=== PATIENT | female | born 1965 | race Caucasian/White ===

== ENCOUNTER 2019-10-15 18:13 | Emergency (ER) | payer SELFPAY ==
[2019-10-15 18:17] VITALS: BP 147/82; PULSE 72; RESP 15; TEMP 36.6; O2SAT 97; BMI 36.3
--- NOTE | 2019-10-15 18:22 | ED_ITS ---
Entered by Ally Clemente, acting as scribe for Tony Hernandez MD HPI - Abdominal Pain General: Chief Complaint: Abdominal Pain Stated Complaint: abd pain Time Seen by Provider: 10/15/19 18:38 History of Present Illness: HPI narrative: 53 yo female presents with abd pain. Pt states that she started vomiting about 1 hour ago. pt states that she has had this pain since last nigth. Pt states that her ain radiates to her back. Associated Symptoms: Reports nausea and vomiting; Denies chills, diarrhea and fever(s) Review of Systems Const: Denies: fever, chills, body aches, change in appetite or change in weight Card: Denies: chest pain or palpitations Resp: Denies: shortness of breath GI: Reports: abdominal pain, nausea and vomiting; Denies: diarrhea : Denies: flank pain or difficulty urinating Musc: Reports: back pain Neuro: Denies: headache Psych: Denies: anxiety or depression PFSH ED PFSH: Statuses (acute, chronic, etc) shown below reflect problem list status as previously entered and may not be historically accurate Medical History Asthma (Acute) Diabetes (Acute) Hypertension (Acute) Pulmonary disease (Acute) Surgical History H/O tubal ligation (Acute) Social History Smoking and tobacco status: former smoker Physical Exam Const: COMMON NORMALS: no apparent distress and healthy appearing HENMT: COMMON NORMALS: normocephalic and external nose normal HEAD & SCALP: normocephalic NOSE: external nose normal and no nasal discharge (nasal dischage) Eye: COMMON NORMALS: PERRL PUPIL: Yes PERRL Neck/C-Spine: COMMON NORMALS: full ROM and no lymphadenopathy Chest: COMMONS NORMALS: inspection of chest normal Resp: COMMON NORMALS: normal respiratory effort and clear to auscultation bilaterally AUSCULTATION: clear to auscultation bilaterally Cardio: COMMON NORMALS: regular rate and regular rhythm RATE: regular rate RHYTHM: regular rhythm GI: COMMON NORMALS: soft to palpation PALPATION: Yes soft OTHER: diffuse tenderness Extremity: COMMON NORMALS: normal to inspection, full ROM and normal capillary refill Psych: COMMON NORMALS: mental status grossly normal and cooperative Skin: COMMON NORMALS: no rashes or lesions noted GENERAL SKIN EXAM: no rashes or lesions noted Course Vital Signs: Vital signs: Vital Signs Temperature 98.4 F 10/15/19 20:06 Pulse Rate 67 10/15/19 21:40 Respiratory Rate 16 10/15/19 21:40 Blood Pressure 110/72 10/15/19 21:40 Pulse Oximetry 98 10/15/19 21:40 MDM - Abdominal Pain MDM Narrative: Medical decision making narrative: Patient presents here with abdominal pain. Patient's lab work here is normal and CT abdomen is normal as well patient feels improved and exam at discharge is benign. Patient has no signs of acute surgical abdomen. Will place patient on Zofran and she is stable for discharge. Lab Data: Labs: Lab Results 10/15/19 10/15/19 10/15/19 Range/Units 18:44 18:44 19:25 WBC 12.3 H (4.0-10.0) 10^3/ uL RBC 5.32 H (4.1-5.3) 10^6/u L Hgb 14.9 (11.5-15.3) g/dL Hct 45.3 (37.0-47.0) % MCV 85.2 (81-99) fL MCH 28.0 (28.0-34.0) pg MCHC 32.9 (30.0-36.0) g/dL RDW 13.5 (12.1-15.1) % Plt Count 308 (130-400) 10^3/c mm MPV 10.6 H (7.4-10.4) fL Neut % (Auto) 83.9 % Lymph % (Auto) 12.0 % [place] % (Auto) 3.2 % Eos % (Auto) 0.4 % Baso % (Auto) 0.2 % Neut # (Auto) 10.3 H (1.8-7.7) 10^3/u L Lymph # (Auto) 1.5 (0.8-4.8) 10^3/u L [place] # (Auto) 0.4 (0.2-0.9) 10^3/u L Eos # (Auto) 0.1 (0.0-0.8) 10^3/u L Baso # (Auto) 0.0 (0.0-0.1) 10^3/u L Nucleated RBC % (a uto) 0 % Nucleated RBCs # 0.0 /100WBC Sodium 132 L (136-145) mmol/L Potassium 4.8 (3.5-5.1) mmol/L Chloride 93 L (98-107) mmol/L Carbon Dioxide 24 (22-29) mmol/L Anion Gap 19.8 H (5-19) BUN 22 H (6-20) mg/dL Creatinine 0.7 (0.5-0.9) mg/dL GFR Calculation 87.9 L (90-130) mL/min Glucose 211 H (74-109) mg/dL Calcium 11.2 H (8.6-10.0) mg/Dl Total Bilirubin 0.3 (0.15-1.2) mg/dL AST 47 H (0-32) U/L ALT 61 H (0-33) U/L Alkaline Phosphata se 53 (35-105) IU/L Total Protein 8.5 (6.6-8.7) g/dL Albumin 4.8 (3.5-5.2) g/dL Globulin 3.7 (1.3-4.6) g/dL Lipase 22 (13-60) U/L Urine Color Yellow (Yellow) Urine Appearance Clear (CLEAR) Urine pH 5 (5-7) Ur Specific Gravit y 1.010 (1.005-1.030) Urine Protein Neg (Negative) Urine Glucose (UA) 4+ H (Normal) Urine Ketones 1+ H (Negative) Urine Occult Blood Neg (Negative) Urine Nitrate Negative (Negative) Urine Bilirubin Neg (NEGATIVE) Urine Urobilinogen Norm (Negative) mg/dL Ur Leukocyte Tiesha ase Negative (Negative) Imaging Data ^: CT Abd/Pel: Radiologist's impression: Ordering Provider/Ordering MD: Tony Hernandez MD Date of Service: 10/15/19 Procedure(s): CT abdomen pelvis w con* [id number] Accession Number(s): [id number] Report Number: [id number] PROCEDURE INFORMATION: Exam: CT Abdomen And Pelvis With Contrast Exam date and time: 10/15/2019 6:51 PM Age: 53 years old Clinical indication: Abdominal pain; Acute; Prior surgery; Surgery date: 6+ months; Surgery type: Tubal; Additional info: Abd pain TECHNIQUE: Imaging protocol: Computed tomography of the abdomen and pelvis with intravenous contrast. Total DLP: 1140.88 mGy-cm Radiation optimization: All CT scans at this facility use at least one of these dose optimization techniques: automated exposure control; mA and/or kV adjustment per patient size (includes targeted exams where dose is matched to clinical indication); or iterative reconstruction. Contrast material: OMNI 300; Contrast volume: 95 ml; Contrast route: IV; COMPARISON: CT abdomen pelvis w con* [id number] 01/23/2017 5:03 PM FINDINGS: Liver: Findings consistent with fatty infiltration of the liver are identified. Gallbladder and bile ducts: Normal. No calcified stones. No ductal dilation. Pancreas: Normal. No ductal dilation. Spleen: Normal. No splenomegaly. Adrenals: Normal. No mass. Kidneys and ureters: Normal. No hydronephrosis. Stomach and bowel: There are air-fluid levels in mildly dilated small bowel with a maximal diameter of 3.2 cm. No volvulus, intussusception or significant hernia. No transition point is identified. The distal small bowel and colon are not dilated. No bowel wall thickening. Appendix: The appendix is visualized and appears normal. Intraperitoneal space: Unremarkable. No free air. No significant fluid collection. Vasculature: Unremarkable. No abdominal aortic aneurysm. Lymph nodes: Unremarkable. No enlarged lymph nodes. Bladder: Unremarkable as visualized. Reproductive: Unremarkable as visualized. Bones/joints: Unremarkable. No acute fracture. Soft tissues: Unremarkable. CT/CT abdomen pelvis w con* [id number] IMPRESSION: There are air-fluid levels in mildly dilated small bowel suggestive of an ileus. No transition point is identified. Discharge Plan Discharge Patient Disposition: Home, Self-Care Clinical Impression: Abdominal pain Qualifiers: Abdominal location: generalized Qualified Code(s): R10.84 - Generalized abdominal pain Condition: Stable Prescriptions: New Zofran 4 mg tablet 4 mg PO QID PRN (Reason: nausea and vomiting) Qty: 14 RF: 0 Discharge Orders: Discharge Order (Routine); Ordered 10/15/19 Ordered By: Tony Hernandez Referrals: Naomi Ken DO [Family Provider] - Discharge Diet: Advance as tolerated Discharge Activity: Resume usual activity Patient Instructions: Abdominal Pain (ED) Discharge Date/Time: 10/15/19 21:41 Coding Level of Care Code ED Diesel Service Technician for Chg Fwd Exam Problem Focused The documentation recorded by the Bryn mann Kialy, accurately reflects the s mikee I personally performed and the decisions made by David ewdard Korby, MD
--- NOTE | 2019-10-15 18:38 | CTR_ITS ---
PROCEDURE INFORMATION: Exam: CT Abdomen And Pelvis With Contrast Exam date and time: 10/15/2019 6:51 PM Age: 53 years old Clinical indication: Abdominal pain; Acute; Prior surgery; Surgery date: 6+ months; Surgery type: Tubal; Additional info: Abd pain TECHNIQUE: Imaging protocol: Computed tomography of the abdomen and pelvis with intravenous contrast. Total DLP: 1140.88 mGy-cm Radiation optimization: All CT scans at this facility use at least one of these dose optimization techniques: automated exposure control; mA and/or kV adjustment per patient size (includes targeted exams where dose is matched to clinical indication); or iterative reconstruction. Contrast material: OMNI 300; Contrast volume: 95 ml; Contrast route: IV; COMPARISON: CT abdomen pelvis w con* [id number] 01/23/2017 5:03 PM FINDINGS: Liver: Findings consistent with fatty infiltration of the liver are identified. Gallbladder and bile ducts: Normal. No calcified stones. No ductal dilation. Pancreas: Normal. No ductal dilation. Spleen: Normal. No splenomegaly. Adrenals: Normal. No mass. Kidneys and ureters: Normal. No hydronephrosis. Stomach and bowel: There are air-fluid levels in mildly dilated small bowel with a maximal diameter of 3.2 cm. No volvulus, intussusception or significant hernia. No transition point is identified. The distal small bowel and colon are not dilated. No bowel wall thickening. Appendix: The appendix is visualized and appears normal. Intraperitoneal space: Unremarkable. No free air. No significant fluid collection. Vasculature: Unremarkable. No abdominal aortic aneurysm. Lymph nodes: Unremarkable. No enlarged lymph nodes. Bladder: Unremarkable as visualized. Reproductive: Unremarkable as visualized. Bones/joints: Unremarkable. No acute fracture. Soft tissues: Unremarkable. CT/CT abdomen pelvis w con* [id number] IMPRESSION: There are air-fluid levels in mildly dilated small bowel suggestive of an ileus. No transition point is identified. Radiation Dose CTDIVOL = (mGy): DLP = 1140.88 (mGy-cm)
[2019-10-15] MEDS: ondansetron 2 mg/ML SDV 2 mL 4 MG IVP (18:48)
[2019-10-15 18:49] VITALS: RESP 24
[2019-10-15] MEDS: morphine 4 mg/mL SDV 1 mL IVP (18:49)
[2019-10-15 18:50] LABS: Basophils % 0.2 %; Eosinophils # 0.1 10^3/uL (0.0-0.8); Eosinophils % 0.4 %; Hematocrit 45.3 % (37.0-47.0); Hemoglobin 14.9 g/dL (11.5-15.3); Lymphocytes # 1.5 10^3/uL (0.8-4.8); Mean Corpuscular HGB Conc 32.9 g/dL (30.0-36.0); Mean Corpuscular Volume 85.2 fL (81-99); Mean Platelet Volume 10.6 fL (7.4-10.4); Monocytes # 0.4 10^3/uL (0.2-0.9); Monocytes % 3.2 %; Neutrophils # 10.3 10^3/uL (1.8-7.7); Neutrophils % 83.9 %; Nucleated Red Blood Cells % 0 %; Platelet Count 308 10^3/cmm (130-400); Red Blood Count 5.32 10^6/uL (4.1-5.3); Red Cell Distribution Width 13.5 % (12.1-15.1); White Blood Count 12.3 10^3/uL (4.0-10.0)
[2019-10-15 19:05] LABS: Alanine Aminotransferase 61 U/L (0-33); Albumin Level 4.8 g/dL (3.5-5.2); Alkaline Phosphatase 53 IU/L (35-105); Anion Gap 19.8 (5-19); Aspartate Amino Transferase 47 U/L (0-32); Blood Urea Nitrogen 22 mg/dL (6-20); Calcium 11.2 mg/Dl (8.6-10.0); Carbon Dioxide 24 mmol/L (22-29); Chloride 93 mmol/L (98-107); Globulin 3.7 g/dL (1.3-4.6); Glomerular Filtration Rate 87.9 mL/min (90-130); Glucose 211 mg/dL (74-109); Lipase 22 U/L (13-60); Potassium 4.8 mmol/L (3.5-5.1); Sodium 132 mmol/L (136-145); Total Bilirubin 0.3 mg/dL (0.15-1.2); Total Protein 8.5 g/dL (6.6-8.7)
[2019-10-15] MEDS: iohexol 300 mg/mL 100 mL Btl IV (19:11)
[2019-10-15 19:32] LABS: Add Urine Microscopic? NO
[2019-10-15 20:06] VITALS: BP 104/60; PULSE 67; RESP 16; TEMP 36.9; O2SAT 87
[2019-10-15 20:09] VITALS: O2SAT 92
--- NOTE | 2019-10-15 20:09 | PC.NURSE ---
Rounded on patient and noticed that her oxygen saturation was a little low. Spoke to nurse and was told to put her on 2L of nasal cannula, patient is on oxygen and oxygen is coming back up.
[2019-10-15 20:23] LABS: Bilirubin Urine Neg (NEGATIVE); Blood Urine Neg (Negative); Glucose Urine UA 4+ (Normal); Ketones Urine 1+ (Negative); Leukocyte Esterase Urine Negative (Negative); Nitrate Urine Negative (Negative); Protein Urine Neg (Negative); Urine Appearance Clear (CLEAR); Urine Color Yellow (Yellow); Urobilinogen Urine Norm (Negative); pH Urine 5 (5-7)
[2019-10-15 21:40] VITALS: BP 110/72; PULSE 67; RESP 16; O2SAT 98
== END 2019-10-15 21:41 | disposition home or self-care (01) ==
PROVIDERS: Emergency Provider Emergency Medicine; Family Provider Family Medicine
DX: R10.84 Generalized abdominal pain (principal); E11.9 Type 2 diabetes mellitus without complications; J45.909 Unspecified asthma, uncomplicated; I10 Essential (primary) hypertension; Z87.891 Personal history of nicotine dependence
CPT/HCPCS: 74177; 80053; 81003; 83690; 85025; 96374; 99282; J2270; J2405; Q9967

== ENCOUNTER 2020-04-26 13:31 | Outpatient (CLI) | payer OTHER, SELFPAY ==
--- NOTE | 2020-04-26 13:38 | MM_ITS ---
WS: [id number] BILATERAL DIGITAL SCREENING MAMMOGRAPHY WITH CAD CLINICAL INFORMATION: SCREENING HISTORY: Screening mammogram. No current complaints. COMPARISON: TECHNIQUE: Bilateral CC and MLO views. FINDINGS: The breasts are composed of heterogeneous fibroglandular density tissue, which can limit the detectio n of small underlying mass lesions. No suspicious mass, asymmetry, calcifications, or architectural d istortion. No evidence of malignancy. A few punctate and lucent centered calcifications. MM/[place] [id number] IMPRESSION: BI-RADS: 2-Benign FOLLOW UP: 1 Year Follow-up Recommend return to annual screening mammography.
== END 2020-04-26 13:32 | disposition home or self-care (01) ==
LOC: RADSHAW 13:35
PROVIDERS: PCP Nurse Practitioner; Visit Provider Nurse Practitioner
DX: Z12.31 Encounter for screening mammogram for malignant neoplasm of breast (principal)
CPT/HCPCS: 77067

== ENCOUNTER 2021-11-16 11:54 | Observation (INO) | payer MEDICAID, SELFPAY ==
[2021-11-16] VITALS (11 sets, daily range): BP systolic 109–179; BP diastolic 69–89; PULSE 67–83; RESP 15–18; TEMP 36.3–36.9; O2SAT 92–97; BMI 33.3
--- NOTE | 2021-11-16 12:53 | CT_ITS ---
WS: [id number] CT HEAD TECHNIQUE: Noncontrast CT of the head obtained from the skullbase to the vertex. CLINICAL INFORMATION: headache, gait instability, double vision COMPARISON: MRI 2012 DLP: 747.[address] scans at [facility] use at least one of these dose optimization techniques: automated e xposure control; mA and/or kV adjustment per patient size (includes targeted exams where dose is matc hed to clinical indication); or iterative reconstruction. FINDINGS: No evidence of intracranial hemorrhage or mass effect. Ventricular system and basal cisterns are garza nt. Mild small vessel changes with mild parenchymal volume loss. No extra-axial fluid collections. No evidence of mass or mass effect. Normal bernstein-white differentiation. Paranasal sinuses and mastoid air cells are well aerated. .Normal visualized soft tissues. CT/CT head wo con* [id number] IMPRESSION: 1. No evidence of intracranial hemorrhage or mass effect. 2. Mild small vessel changes. Mild parenchymal volume loss. 3. No acute intracranial findings.
--- NOTE | 2021-11-16 12:53 | CT_ITS ---
WS: [id number] CTA HEAD AND NECK TECHNIQUE: Contrast enhanced CTA of the head and neck with coronal and sagittal reformatted images an d maximum intensity projection (MIP) images. NASCET criteria utilized. CLINICAL INFORMATION: gait instability and vision changes, neck pain COMPARISON: None. DLP: 2190.[address] scans at [facility] use at least one of these dose optimization techniques: automated e xposure control; mA and/or kV adjustment per patient size (includes targeted exams where dose is matc hed to clinical indication); or iterative reconstruction. FINDINGS: RIGHT: RIGHT common carotid artery is patent. Mild atheromatous plaque RIGHT carotid bulb extending t o the ICA. No significant RIGHT ICA stenosis. ICA is patent to the skull base. LEFT: LEFT common carotid artery is patent. Moderate atheromatous plaque LEFT carotid bulb extending into the ICA. Less than 50% LEFT ICA stenosis. LEFT ICA is patent to the skull base. Retropharyngeal course of the LEFT cervical ICA. INTRACRANIAL CTA: LEFT dominant vertebral artery. Both vertebral arteries are patent to the skull base. Smaller but pat ent RIGHT vertebral artery. Basilar artery is patent. Normal vascularity to the GLASS PRODUCTION MACHINE OPERATOR territory bilater ally. Both ICAs are patent at the skull base. Mild cavernous carotid calcification. Normal vascularity to t he MELY and MCA territories bilaterally. No evidence of flow-limiting stenosis or aneurysm. A few small nodules in the thyroid. A few small calcified nodules. Lung apices are well aerated. Paranasal sinuses and mastoid air cells are well aerated well aerated. Normal parapharyngeal fat. Normal posterior nasopharynx. Moderate spondylitic changes cervical spine. Disc osteophyte complexes at C5-C6 and C6-C7 with mild central canal stenosis. CT/CT angio headneck* [id number] IMPRESSION: 1. No significant ICA stenosis bilaterally. 2. LEFT dominant vertebral artery. Both vertebral arteries are patent. 3. Normal intracranial CTA. No flow-limiting stenosis. 4. No other acute findings.
--- NOTE | 2021-11-16 12:53 | XR_ITS ---
WS: [id number] Portable AP upright chest, 11/16/2021 Clinical Data: weakness Comparison: Portable chest, 11/27/2014. Findings: No nodules, masses or effusions are seen. The heart is normal. The pulmonary vascularity is not increased. No pneumonia or pneumothorax is seen. XR/XR chest 1V portable [id number] Impression: Negative chest.
--- NOTE | 2021-11-16 12:54 | ECG_ITS ---
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 Measurements Intervals Mertens Rate: 67 P: 61 TN: 200 QRS: -7 QRSD: 109 T: 63 QT: 391 QTc: 415 Interpretive Statements SINUS RHYTHM LOW QRS VOLTAGE IN PRECORDIAL LEADS [QRS DEFLECTION < 1.0 mV IN CHEST LEADS] POSSIBLE ANTERIOR MYOCARDIAL INFARCTION , OF INDETERMINATE AGE [30 ms Q WAVE IN V3/V4, OR R < 0.2 mV IN V4] Compared to ECG 11/27/2014 22:53:44 No significant changes Electronically Signed On 11-16-2021 20:47:52 PIG MACHINE OPERATOR HELPER by Lakhwinder Delgadillo M.D. [id number]
--- NOTE | 2021-11-16 13:01 | W.ED.DIZZY ---
HPI - Dizziness General: Chief Complaint: Dizziness Stated Complaint: double vision, dizzy Time Seen by Provider: 11/16/21 12:44 [facility] PFSH: Medical History (Updated 10/23/19 @ 00:00 by ) Asthma Diabetes Hypertension Pulmonary disease Surgical History H/O tubal ligation Social History Smoking and tobacco status: former smoker Course Vital Signs: Vital signs: Vital Signs Temperature 97.4 F L 11/16/21 12:01 Pulse Rate 74 11/16/21 12:01 Respiratory Rate 18 11/16/21 12:01 Blood Pressure 179/84 11/16/21 12:01 Pulse Oximetry 97 11/16/21 12:01 Discharge Plan Discharge Condition: Stable Prescriptions: No Action Zofran 4 mg tablet 4 mg PO QID PRN (Reason: nausea and vomiting) Qty: 14 0RF Referrals: Vivek Reyez FNP [Primary Care Provider] - Coding Level of Care Code ED Knitted Garment Finisher for Aldair Benito
--- NOTE | 2021-11-16 13:02 | W.ED.GENADLT ---
HPI - General Adult General: Chief complaint: Dizziness Stated complaint: double vision, dizzy Time Seen by Provider: 11/16/21 12:44 History of Present Illness: Patient is a 55-year-old female with history diabetes, hypertension who presents emergency room with 2 days of blurriness of vision, double vision, and gait instability and generalized weakness. Patient tells me that yesterday morning she woke up around 8 AM when she suddenly experienced difficulty walking. At baseline, patient has no problem with walking. Vision, patient has noticed diplopia. Denies any vertigo sensation, chest pain, shortness breath, palpitation, lightheadedness, nausea/vomiting, diarrhea, or melena/hematochezia, urinary complaints. Patient tells me that she has been having 1 month of frontal headache. No focal weakness in the arms or legs. Patient denies any recent slurring of speech, facial droop, dysarthria, or sensory changes. Onset:2 days ago Duration:2 days Location:home Severity:moderate Associated symptoms: Reports headache(s); Deny chest pain, dyspnea, nausea, rash, palpitations or vomiting Review of Systems Const: Denies: fever(s) or chills Eyes: Reports: blurry vision and other (diplopia); Denies: change in vision ENMT: Denies: mouth pain Card: Denies: chest pain or palpitations Resp: Denies: dyspnea or non-productive cough GI: Denies: abdominal pain, nausea, vomiting or diarrhea : Denies: dysuria Musc: Denies: extremity pain Skin/Breast: Denies: rash or new lesions Neuro: Reports: headache(s) and other (+gait difficulty); Denies: weakness in extremities Psych: Reports: other (Normal mood) Param/Lymph: Denies: easy bruising PFSH ED PFSH: Medical History (Updated 11/16/21 @ 17:37 by Jayant Soler MD) Arthritis of neck Asthma Bleeding hemorrhoids Diabetes Hypertension Pulmonary disease Surgical History H/O tubal ligation Family History (Updated 11/16/21 @ 17:28 by Jayant Soler MD) Sister Cancer Social History Smoking and tobacco status: former smoker Physical Exam Const: COMMON NORMALS: alert HENMT: COMMON NORMALS: atraumatic HEAD & SCALP: atraumatic MOUTH: moist mucous membranes not abnormal Eye: COMMON NORMALS: EOMs intact bilaterally and conjunctivae normal CONJUNCTIVA: Yes conjunctivae normal Neck/C-Spine: COMMON NORMALS: full ROM and supple Resp: COMMON NORMALS: normal respiratory effort and clear to auscultation bilaterally AUSCULTATION: clear to auscultation bilaterally Cardio: COMMON NORMALS: regular rate RATE: regular rate GI: COMMON NORMALS: Soft to palpation and non-tender PALPATION: Yes Soft to palpation Extremity: COMMON NORMALS: full ROM Neuro: SENSORIUM/ORIENTATION: Yes alert MOTOR EXAM: No Abnormal motor strength present and Other motor observations present (no focal motor deficits) OTHER: Mental status? Awake, alert, and oriented to self, year, month, location, and situation.? Following simple axial and appendicular commands.? Has appropriate fund of knowledge, comprehension, and insight.? Able to recall and understands pertinent aspects of medical history and current treatment status.? ? Language? Speech is fluent without word-finding difficulties.? Intact naming, expression, foam dispenser, and repetition.? ? Cranial nerves? 2,3,4,6: PERRL, EOMI with no nystagmus. 5: Intact sensation to light touch, symmetric? 7: Smile symmetrical, no facial droop.? 8: Hearing grossly intact.? 9,10: Normal palate movement.? 11: Normal strength in trapezius bilaterally 12: Tongue protrudes midline.? ? Motor examination? Normal bulk & tone. Strength as follows (R/L): Delts (5/5), Biceps (5/5), Triceps (5/5), Wrist ext (5/5), hip flexors (5/5), plantarflexors (5/5), dorsiflexors (5/5). Sensation? Light Touch: Grossly intact and equal in upper and lower extremities bilaterally? Romberg: Negative.? Distal joint position sense intact ? Coordination? Ydjsra-zf-nwdm-finger movements intact without dysmetria or past-pointing.? Rapid fingertaps: preserved amplitude without decriment.? No tremor, myoclonus or truncal ataxia.? ? Gait/stance? Steady, +mildly wide-base gait with appropriate arm swing and turning.? Tandem gait without hesitation or loss of balance. Psych: COMMON NORMALS: speech normal SPEECH: Yes normal speech MOOD & AFFECT: Yes euthymic mood Course Vital Signs: Vital signs: Vital Signs Temperature 97.5 F L 11/17/21 17:08 Pulse Rate 86 11/17/21 17:08 Respiratory Rate 16 11/17/21 17:08 Blood Pressure 146/85 11/17/21 17:08 Pulse Oximetry 95 11/17/21 17:08 MDM - General Adult Medical Decision Making 85-year-old female with a history of hypertension, diabetes who presents emergency room with complaint generalized weakness, gait difficulty, and diplopia x 2 days. Patient on exam has binocular diplopia. Neuro exam is intact. Work-up with CBC, BMP, troponin x2, EKG x2, CT brain, CT head Ct head is negative for any acute finding. CTA head/neck is negative for any large vessel occlusion or dissection. Given new onset of gait instability and diplopia, I performed shared decision making with patient who agrees for inpatient admission for MRI and echo to evaluate for subacute cerebellar stroke and other patholoiges. Disposition: admission Lab Data : 11/16/21 13:40 11/16/21 13:40 Radiology Impressions Chest X-Ray 11/16/21 12:53 Impression: Negative chest. Head CT 11/16/21 12:53 IMPRESSION: 1. No evidence of intracranial hemorrhage or mass effect. 2. Mild small vessel changes. Mild parenchymal volume loss. 3. No acute intracranial findings. Head/Neck CTA 11/16/21 12:53 IMPRESSION: 1. No significant ICA stenosis bilaterally. 2. LEFT dominant vertebral artery. Both vertebral arteries are patent. 3. Normal intracranial CTA. No flow-limiting stenosis. 4. No other acute findings. Head MRI 11/17/21 10:00 IMPRESSION: 1. No acute infarct or hemorrhage. 2. Mild increased amount of subcortical white matter lesions greater on the RIGHT since the prior study from 2012. These changes can be seen with migraine headache, diabetes, smoking history and hypertension. 3. No intracranial mass. 4. No orbital abnormality or compression upon the optic chiasm. Head/Brain Mag Res Venography 11/17/21 10:00 IMPRESSION: 1. No dural venous thrombosis. 2. Small caliber RIGHT transverse sinus is a normal variant. Laboratory Results WBC 8.4 10^3/uL (4.0-10.0) 11/16/21 13:40 RBC 5.47 10^6/uL (4.1-5.3) H 11/16/21 13:40 Hgb 14.9 g/dL (11.5-15.3) 11/16/21 13:40 Hct 46.1 % (37.0-47.0) 11/16/21 13:40 MCV 84.3 fl (81-99) 11/16/21 13:40 MCH 27.2 pg (28.0-34.0) L 11/16/21 13:40 MCHC 32.3 g/dL (30.0-36.0) 11/16/21 13:40 RDW 13.2 % (12.1-15.1) 11/16/21 13:40 Plt Count 325 10^3/cmm (130-400) 11/16/21 13:40 MPV 10.7 fL (7.4-10.4) H 11/16/21 13:40 Neut % (Auto) 49.6 % 11/16/21 13:40 Lymph % (Auto) 41.5 % 11/16/21 13:40 [place] % (Auto) 6.3 % 11/16/21 13:40 Eos % (Auto) 1.8 % 11/16/21 13:40 Baso % (Auto) 0.6 % 11/16/21 13:40 Neut # (Auto) 4.16 10^3/uL (1.8-7.7) 11/16/21 13:40 Lymph # (Auto) 3.5 10^3/uL (0.8-4.8) 11/16/21 13:40 [place] # (Auto) 0.5 10^3/uL (0.2-0.9) 11/16/21 13:40 Eos # (Auto) 0.2 10^3/uL (0.0-0.8) 11/16/21 13:40 Baso # (Auto) 0.1 10^3/uL (0.0-0.1) 11/16/21 13:40 Nucleated RBC % (auto) 0 % 11/16/21 13:40 Nucleated RBCs # 0.0 /100WBC 11/16/21 13:40 Sodium 132 mmol/L (136-145) L 11/16/21 13:40 Potassium 4.6 mmol/L (3.5-5.1) 11/16/21 13:40 Chloride 96 mmol/L (98-107) L 11/16/21 13:40 Carbon Dioxide 25 mmol/L (22-29) 11/16/21 13:40 Anion Gap 15.6 (5-19) 11/16/21 13:40 BUN 13 mg/dL (6-20) 11/16/21 13:40 Creatinine 0.5 mg/dL (0.5-0.9) 11/16/21 13:40 GFR Calculation 128.6 mL/min (90-130) 11/16/21 13:40 Glucose 95 mg/dL (65-115) 11/16/21 13:40 Estimat Average Glucose 180 11/16/21 13:40 Hemoglobin A1c 7.9 % (4.0-6.0) H 11/16/21 13:40 Calculated Osmolality 274 mOsm/kg (285-295) L 11/16/21 13:40 Calcium 10.2 mg/dL (8.5-10.5) 11/16/21 13:40 Creatine Kinase 77 U/L (26-192) 11/16/21 13:40 Troponin T Baseline 6 ng/L (0-10) 11/16/21 13:40 Imaging Data Other Imaging: Radiologist's impression: [address] [place] [address] CT Scan Report Signed Patient: Juan Estrada Unit #: [id number] : 1965 Age/Sex: 55 / F ADM Date: 11/16/21 Loc: ER Room/Bed: Attending Dr: Ordering Provider/Ordering MD: Sherri Guardado MD Date of Service: 11/16/21 Procedure(s): CT angio headneck* [id number] Accession Number(s): [id number] Report Number: [id number] WS: [id number] CTA HEAD AND NECK TECHNIQUE: Contrast enhanced CTA of the head and neck with coronal and sagittal reformatted images and maximum intensity projection (MIP) images. NASCET criteria utilized. CLINICAL INFORMATION: gait instability and vision changes, neck pain COMPARISON: None. DLP: 2190.[address] [facility] use at least one of these dose optimization techniques: automated exposure control; mA and/or kV adjustment per patient size (includes targeted exams where dose is matched to clinical indication); or iterative reconstruction. FINDINGS: RIGHT: RIGHT common carotid artery is patent. Mild atheromatous plaque RIGHT carotid bulb extending to the ICA. No significant RIGHT ICA stenosis. ICA is patent to the skull base. LEFT: LEFT common carotid artery is patent. Moderate atheromatous plaque LEFT carotid bulb extending into the ICA. Less than 50% LEFT ICA stenosis. LEFT ICA is patent to the skull base. Retropharyngeal course of the LEFT cervical ICA. INTRACRANIAL CTA: LEFT dominant vertebral artery. Both vertebral arteries are patent to the skull base. Smaller but patent RIGHT vertebral artery. Basilar artery is patent. Normal vascularity to the PRINTING ASSISTANT territory bilaterally. Both ICAs are patent at the skull base. Mild cavernous carotid calcification. Normal vascularity to the MELY and MCA territories bilaterally. No evidence of flow-limiting stenosis or aneurysm. A few small nodules in the thyroid. A few small calcified nodules. Lung apices are well aerated. Paranasal sinuses and mastoid air cells are well aerated well aerated. Normal parapharyngeal fat. Normal posterior nasopharynx. Moderate spondylitic changes cervical spine. Disc osteophyte complexes at C5-C6 and C6-C7 with mild central canal stenosis. CT/CT angio headneck* [id number] IMPRESSION: ? 1.? No significant ICA stenosis bilaterally. 2.? LEFT dominant vertebral artery. Both vertebral arteries are patent. 3.? Normal intracranial CTA. No flow-limiting stenosis. 4.? No other acute findings. ? Dictated By: Kory Grande MD Signed By: Kory Grande MD Signed Date/Time: 11/16/21 1351 DD/ [address] [address] [address] Scan Report Signed Patient: Juan Estrada Unit #: [id number] : 1965 Age/Sex: 55 / F ADM Date: 11/16/21 Loc: ER Room/Bed: Attending Dr: Ordering Provider/Ordering MD: Sherri Guardado MD Date of Service: 11/16/21 Procedure(s): CT head wo con* [id number] Accession Number(s): [id number] Report Number: [id number] WS: [id number] CT HEAD TECHNIQUE: Noncontrast CT of the head obtained from the skullbase to the vertex. CLINICAL INFORMATION: headache, gait instability, double vision COMPARISON: MRI 2012 DLP: 747.[address] scans at [facility] use at least one of these dose optimization techniques: automated exposure control; mA and/or kV adjustment per patient size (includes targeted exams where dose is matched to clinical indication); or iterative reconstruction. FINDINGS: No evidence of intracranial hemorrhage or mass effect. Ventricular system and basal cisterns are patent. Mild small vessel changes with mild parenchymal volume loss. No extra-axial fluid collections. No evidence of mass or mass effect. Normal bernstein-white differentiation. Paranasal sinuses and mastoid air cells are well aerated. .Normal visualized soft tissues. CT/CT head wo con* [id number] IMPRESSION: ? 1.? No evidence of intracranial hemorrhage or mass effect. 2.? Mild small vessel changes. Mild parenchymal volume loss. 3.? No acute intracranial findings. ? Dictated By: Kory Grande MD Signed By: Kory Grande MD Signed Date/Time: 11/16/21 1342 DD/ 1336 Discharge Plan Discharge Patient Disposition: Admitted As Inpatient Admit Provider: Jayant Soler Clinical Impression: Headache, Binocular vision disorder with diplopia, Abnormal gait Condition: Stable Discharge Diet: Cardiac and Diabetic Discharge Activity: Increase activity as tolerated Coding Level of Care Code ED Single Fold Machine Operator for Chg Fwd Exam Comprehensive
[2021-11-16 13:50] LABS: Basophils # 0.1 10^3/uL (0.0-0.1); Basophils % 0.6 %; Eosinophils # 0.2 10^3/uL (0.0-0.8); Eosinophils % 1.8 %; Hematocrit 46.1 % (37.0-47.0); Hemoglobin 14.9 g/dL (11.5-15.3); Lymphocytes # 3.5 10^3/uL (0.8-4.8); Lymphocytes % 41.5 %; Mean Corpuscular HGB Conc 32.3 g/dL (30.0-36.0); Mean Corpuscular Hemoglobin 27.2 pg (28.0-34.0); Mean Corpuscular Volume 84.3 fl (81-99); Mean Platelet Volume 10.7 fL (7.4-10.4); Monocytes # 0.5 10^3/uL (0.2-0.9); Monocytes % 6.3 %; Neutrophils # 4.16 10^3/uL (1.8-7.7); Neutrophils % 49.6 %; Nucleated Red Blood Cells % 0 %; Platelet Count 325 10^3/cmm (130-400); Red Blood Count 5.47 10^6/uL (4.1-5.3); Red Cell Distribution Width 13.2 % (12.1-15.1); White Blood Count 8.4 10^3/uL (4.0-10.0)
[2021-11-16 14:03] LABS: Anion Gap 15.6 (5-19); Blood Urea Nitrogen 13 mg/dL (6-20); Calcium 10.2 mg/dL (8.5-10.5); Carbon Dioxide 25 mmol/L (22-29); Chloride 96 mmol/L (98-107); Creatinine Clr Calc Pharmacy 151.9729; Glomerular Filtration Rate 128.6 mL/min (90-130); Glucose 95 mg/dL (65-115); Osmolality Calculated 274 mOsm/kg (285-295); Potassium 4.6 mmol/L (3.5-5.1); Sodium 132 mmol/L (136-145)
[2021-11-16 14:04] LABS: Troponin(5th) Baseline 6 ng/L (0-10)
[2021-11-16 14:47] LABS: Creatine Phosphokinase 77 U/L (26-192)
--- NOTE | 2021-11-16 14:54 | ECG_ITS ---
[facility] Test Date: 2021-11-16 Pat Name: Juan Estrada Department: Room: 251 Gender: Female Project Manager Retail: : 1965 Requested By: Sherri Guardado Order Number: [id number] Betty MD: Lakhwinder Delgadillo M.D. Measurements Intervals [place] Rate: 70 P: 63 [place]: 199 QRS: -6 QRSD: 120 T: 64 QT: 380 QTc: 410 Interpretive Statements SINUS RHYTHM POSSIBLE ANTERIOR MYOCARDIAL INFARCTION , OF INDETERMINATE AGE [30 ms Q WAVE IN V3/V4, OR R < 0.2 mV IN V4] Compared to ECG 11/16/2021 14:40:39 No significant changes Electronically Signed On 11-16-2021 20:52:40 ENTRY LEVEL BUSINESS ANALYST by Lakhwinder Delgadillo M.D. [id number]
--- NOTE | 2021-11-16 17:26 | P.HP_ITS ---
Providers/Chief Complaint Admitting Physician: Jayant Soler Primary Care Provider: KAMALJIT Prieto Chief Complaint: double vision, dizzy History of Present Illness 55-year-old lady with history of neck arthritis, DM2, HTN, HLD, asthma came to emergency department due to experiencing since yesterday morning double vision, difficulties with ambulation, also reports headache of about 1 month duration. Denies history of migraine headaches in the past. Denies past history of CVA. Reports also neck pain, although does state that she has chronic arthritis pain in her neck for which she takes meloxicam daily, and recently has been worse. Does report some photophobia as well. During interview reports that in the last hour she has also been experiencing loss of sensation numbness and tpvg-phn-yewcyzh in both right upper and lower extremity which she did not have before. She denies any fevers or chills. Denies any rashes. Denies any trouble speaking or swallowing. Denies that the symptoms get worse through the day. She denies any other recent illness. Denies any changes in her medications. Review of Systems Const: Reports: other (weak); Denies: fever(s), chills, body aches or malaise Eyes: Reports: change in vision; Denies: eye redness ENMT: Denies: throat pain, oral sores or ear or mastoid pain Card: Denies: chest pain, edema, pre-syncope or dyspnea on exertion Resp: Denies: dyspnea, productive cough, change in phlegm color or hemoptysis GI: Denies: abdominal pain, nausea, vomiting, diarrhea, constipation, hematochezia or melena : Denies: flank pain, urinary frequency or hematuria Musc: Denies: back pain, joint swelling or joint redness Skin/Breast: Denies: rash, sores or new lesions Neuro: Reports: headache(s), numbness in extremities, difficulty walking and other; Denies: weakness in extremities, dizziness, confusion or seizure-like activity Endo: Denies: polyuria or polydipsia Param/Lymph: Denies: easy bleeding or purpura All/Imm: Denies: urticaria, throat swelling or tongue swelling Medications/Allergies Home Medications Medication Instructions Recorded Confirmed Last Taken Type atenolol 50 mg tablet See Rx Instructions .ROUTE .COMPLEX 11/16/21 11/16/21 Unknown History atorvastatin 40 mg tablet 40 mg PO DAILY 11/16/21 11/16/21 Unknown History ferrous sulfate 325 mg (65 mg 325 mg PO DAILY 11/16/21 11/16/21 Unknown History iron) tablet (Iron (ferrous sulfate)) glyburide 2.5 mg tablet 2.5 mg PO DAILY 11/16/21 11/16/21 Unknown History lisinopril 30 mg tablet 30 mg PO DAILY 11/16/21 11/16/21 Unknown History meloxicam 15 mg tablet 15 mg PO DAILY 11/16/21 11/16/21 Unknown History metformin 500 mg tablet 500 mg PO BID 11/16/21 11/16/21 Unknown History oxybutynin chloride 10 mg 10 mg PO DAILY 11/16/21 11/16/21 Unknown History tablet,extended release 24 hr semaglutide 1 mg/dose (2 mg/1.5 1 mg SUBCUT Q7D 11/16/21 11/16/21 Unknown History mL) subcutaneous pen injector (Ozempic) Allergies Allergy/AdvReac Type Severity Reaction Status Date / Time No Known Allergies Allergy Verified 11/16/21 14:04 PFSH Acute PFSH: Medical History (Updated 11/16/21 @ 17:37 by Jayant Soler MD) Arthritis of neck Asthma Bleeding hemorrhoids Diabetes Hypertension Pulmonary disease Surgical History H/O tubal ligation Family History (Updated 11/16/21 @ 17:28 by Jayant Soler MD) Sister Cancer Social History Smoking and tobacco status: former smoker Vitals/I&O/Wt Last Vital Signs Temp 98.4 F 11/16/21 16:07 Pulse 83 11/16/21 16:07 Resp 16 11/16/21 16:07 BP 159/81 11/16/21 16:07 Pulse Ox 97 11/16/21 16:07 Weight last 48 hrs Weight 74.843 kg Physical Exam Const: COMMON NORMALS: no acute distress and patient oriented x3 NUTRITIONAL APPEARANCE: overweight HENMT: COMMON NORMALS: oropharynx normal Neck/C-Spine: COMMON NORMALS: no JVD Resp: COMMON NORMALS: normal respiratory effort and clear to auscultation bilaterally AUSCULTATION: clear to auscultation bilaterally Cardio: COMMON NORMALS: no JVD, regular rhythm, S1 normal heart sound present, S2 normal heart sound present and No murmurs present (Cardio) RHYTHM: regular rhythm HEART SOUNDS: S1 normal heart sound present and S2 normal heart sound present GI: COMMON NORMALS: Normal to inspection, nondistended, normoactive bowel sounds present, Soft to palpation and non-tender PALPATION: Yes Soft to palpation Extremity: COMMON NORMALS: no joint enlargement and no pedal edema Neuro: COMMON NORMALS: patient oriented x3 and moves all extremities CRANIAL NERVES: Yes CN normal except as noted COORDINATION/BALANCE: other (Mild dysmetria on R) SPEECH: speech normal SENSORY EXAM: Yes extremities (Reports diminished sensation on R upper and lower, not face) and Normal double simultaneous stimulation for sensation MOTOR EXAM: Pronator motor function not present OTHER: Tracking, although reports feeling mildly dizzy at both extremes. Visual barnard appear narrowed bilaterally. Skin: COMMON NORMALS: no rashes or lesions noted GENERAL SKIN EXAM: no rashes or lesions noted Data : 11/16/21 13:40 11/16/21 13:40 A&P Assessment and plan (1) Binocular vision disorder with diplopia: Diplopia, although states it has been intermittent since yesterday morning. Denies that he gets worse through the day. Denies persistent symptoms. No recent trauma. Additionally mild dysmetria on right upper extremity. In the last hour reports also loss of sensation/paresthesia on the right upper and lower extremity. Reports a headache going on for close to a month. Denies history of migraine. Certainly could be related to hemiplegic migraine, migraine with aura, although discussed with her possible CVA, although symptoms do not have a clear focal distribution. Discussed with her we will additionally assessed MRI and MRV of the brain. Start aspirin, statin. Would benefit from dual antiplatelet therapy with possible CVA with low NIH score. Continue optimization of cardiovascular risk factors. Additional assessment with TTE, monitor on telemetry. Additionally discussed with her possibility of NSAID induced meningitis, at this time we will discontinue meloxicam. With low likelihood of bacterial meningitis with current presentation. PT, OT assessment. Status: Acute (2) Abnormal gait: As above. Status: Acute (3) Headache: Reports mild photophobia. Headache. Does have chronic neck problems with arthritis. Discussed with her possible NSAID induced mild meningitis. Hold NSAID. At this time low likelihood of bacterial meningitis. We will provide symptomatic control at this time. Reassess. Additional assessment as above. Status: Acute (4) Diabetes: Hold oral hypoglycemics for now. Mild insulin sliding scale. Consistent carbohydrate diet. Status: Acute (5) Arthritis of neck: Hold meloxicam. Status: Acute Plan HTN: Hold antihypertensives for now. HLD: Continue statin. Attestations Medical Necessity Statement*: Please see in observation for additional assessment and management of progressive neurologic deficits. Coding Level of Care Code Acute Bridge Carpenter for Aldair Benito Diagnoses Binocular vision disorder with diplopia H53.2 Abnormal gait R26.9 Headache R51.9 Diabetes E11.9 Arthritis of neck M47.812
[2021-11-16] MEDS: magnesium sulfate premix 2 GM/50 ML PIGGYBACK IV (17:46)
[2021-11-16] MEDS: metoclopramide 5 mg/mL SDV 2 mL IVP (17:46)
--- NOTE | 2021-11-16 18:01 | USCV_ITS ---
Juan Estrada Age: 55 Gender: F : 1965 Exam Date: 11/16/2021 20:14 Ordering Phys: Jayant Soler MD Technologist: LEO Exam Location: [facility] – [place] Indication: Possible CVA BP: / HR: 69 Rhythm: Sinus Technical Quality: Adequate MEASUREMENTS (Male / Female) Normal Values 2D ECHO LV Diastolic Diameter PLAX 2.5 cm 4.2 - 5.9 / 3.9 - 5.3 cm LV Systolic Diameter PLAX 1.6 cm IVS Diastolic Thickness 1.5 cm 0.6 - 1.0 / 0.6 - 0.9 cm IVS Systolic Thickness 1.8 cm LVPW Diastolic Thickness 1.3 cm 0.6 - 1.0 / 0.6 - 0.9 cm LVPW Systolic Thickness 1.7 cm LVOT Diameter 1.7 cm LV Ejection Fraction 2D Teich 69.7 % LV Ejection Fraction MOD 2C 43.0 % LV Ejection Fraction 2C AL 44.2 % LA Diameter 3.6 cm LA Width 2.9 cm LA Height 4.9 cm RA Width 3.3 cm RA Height 4.1 cm Aorta at Sinotubular Diameter 1.9 cm M-MODE Aortic Annulus Diameter 2.3 cm LA Ao Ratio MM 1.6 MV E Point Septal Separation 0.5 cm DOPPLER AV Peak Velocity 144.0 cm/s LVOT Peak Velocity 95.0 cm/s AV Area Cont Eq vti 1.7 cm squared AV Area Cont Eq pk 1.5 cm squared MV Peak Velocity 78.0 cm/s MV Area PHT 3.7 cm squared Mitral E to A Ratio 0.9 MV E' Velocity 38.5 cm/s Mitral E to MV E' Ratio 8.1 Mitral E to LV E' Lateral Ratio 6.9 Mitral E to LV E' Septal Ratio 9.7 TR Peak Velocity 155.8 cm/s TR Peak Gradient 9.7 mmHg TR Mean Velocity 181.8 cm/s TR Mean Gradient 14.6 mmHg TR Velocity Time Integral 70.5 cm TV Peak E Velocity 77.0 cm/s Right Atrial Pressure 3.0 mmHg Pulmonary Artery Systolic Pressu 12.7 mmHg PV Peak Velocity 108.0 cm/s RV Acceleration Time 0.1 s RV Ejection Time 0.5 s RV AcT/ET 0.2 FINDINGS Left Ventricle Normal left ventricular size, systolic function with no diagnostic regional wall motion abnormalities. Left ventricular ejection fraction is estimated at 60-65 %. Normal diastolic function. Right Ventricle Normal right ventricular size and systolic function. Right ventricular systolic pressure 12.7 mmHg. Right Atrium Normal right atrial size. Left Atrium Upper normal left atrial size. Mitral Valve Structurally normal mitral valve. No mitral valve stenosis. No mitral valve regurgitation. Aortic Valve Structurally normal trileaflet aortic valve. No aortic valve stenosis. No aortic valve regurgitation. Tricuspid Valve Structurally normal tricuspid valve. No tricuspid valve stenosis. Trace tricuspid valve regurgitation. Pulmonic Valve Structurally normal pulmonic valve. No pulmonary valve stenosis. Trace pulmonary valve regurgitation. Pericardium No pericardial effusion. Aorta Normal size aortic root and proximal ascending aorta. CONCLUSIONS 1. This is a technically difficult study. 2. Normal left ventricular size, systolic function with no diagnostic regional wall motion abnormalities. Left ventricular ejection fraction is estimated at 60-65 %. Normal diastolic function. 3. Normal right ventricular size and systolic function. 4. No cardioembolic source of stroke based on the study. GABY is recommended if clinically indicated. Lila Franks MD (Electronically Signed) Final Date: 17 November 2021 16:25 S
[2021-11-16 18:31] LABS: Chol HDL Ratio 5.56 mg/dL (0.0-4.40); Cholesterol 178 mg/dL (0-200); HDL Cholesterol 32 mg/dL (60-100); LDL Cholesterol Calculated 83 mg/dL (50-129); Triglycerides 316 mg/dL (0-150); VLDL Cholestrol Calculation 63 mg/dL (0-30)
[2021-11-16] MEDS: enoxaparin 40 mg/0.4 mL Syringe SUBCUT (18:49)
[2021-11-16] MEDS: aspirin 325 mg Tablet PO (20:01)
[2021-11-16 21:40] LABS: Estmated Average Glucose 180; Hemoglobin A1C 7.9 % (4.0-6.0)
[2021-11-17] VITALS (8 sets, daily range): BP systolic 116–146; BP diastolic 75–85; PULSE 68–86; RESP 16–18; TEMP 36.4–36.6; O2SAT 95–96
[2021-11-17] MEDS: ferrous sulfate EC 325 mg Tablet PO (08:19)
[2021-11-17] MEDS: clopidogrel 75 mg Tablet PO (08:19)
[2021-11-17] MEDS: aspirin 325 mg Tablet PO (08:19)
[2021-11-17] MEDS: atorvastatin 40 mg Tablet PO (08:19)
[2021-11-17] MEDS: oxybutynin chloride XL 5 MG TABLET 10 MG PO (08:21)
--- NOTE | 2021-11-17 10:00 | MR_ITS ---
WS: [id number] MR VENOGRAPHY HEAD 3-D noncontrast imaging performed through the cerebral veins. All imaging is reviewed. HISTORY: headache, diplopia, difficult ambulation COMPARISON: Prior CT head and angiogram 11/16/2021. Good demonstration of the dural venous sinuses and cerebral veins. There are no filling defects to whitten ggest acute or chronic thrombus. Small caliber RIGHT transverse sinus. This is confirmed on the CT an giogram that was performed on 11/16/2021. There are no filling defects along the superior sagittal sin us or along the straight sinus. LEFT transverse sinus is normal caliber. Small caliber RIGHT sigmoid sinus. The LEFT is normally patent. MR/[place] [id number] IMPRESSION: 1. No dural venous thrombosis. 2. Small caliber RIGHT transverse sinus is a normal variant.
--- NOTE | 2021-11-17 10:00 | MR_ITS ---
WS: [id number] MRI BRAIN WITH AND WITHOUT CONTRAST HISTORY: gait disturbance, diplopia COMPARISON: MRI brain 07/27/2013. CT head 11/16/2021. TECHNIQUE: Multiplanar imaging performed through the brain with MultiHance 17 ml's IV. No acute infarcts are seen. Ordoñez-white matter differentiation is well preserved. Subcortical white ma tter lesions described on the prior study from 2012 has mildly progressed. Slightly greater distribut ion of white matter lesions in the RIGHT temporoparietal lobe. Slightly more than expected for a kayla ent of this age. No cerebellar lesions. No signal abnormality within the christian. No hemorrhage. No susceptibility artifacts or prior lacunar infarcts. Ventricles and extra-axial spaces are normal. Clivus and pituitary gland are normal. Visualized posterior fossa and brainstem are also normal. Postcontrast images are negative for masses or vascular malformations. Dural venous sinuses are normal. Paranasal sinuses: Well aerated with no significant disease. Mastoid air cells: Normal. Calvarium and scalp: Normal. MR/MR head wo/w con [id number] IMPRESSION: 1. No acute infarct or hemorrhage. 2. Mild increased amount of subcortical white matter lesions greater on the RI GHT since the prior study from 2012. These changes can be seen with migraine he adache, diabetes, smoking history and hypertension. 3. No intracranial mass. 4. No orbital abnormality or compression upon the optic chiasm.
[2021-11-17] MEDS: gadobenate dimeglumine 20 mL vial IV (11:23)
--- NOTE | 2021-11-17 14:17 | PC.PT ---
Per discussion with OT after evaluation, patient has returned to baseline and is safely independent with transfers and ambulation greater than 150 foot distances with no balance deficits. Discussed same with Dr.Ha Villalobos, who felt PT do not need to see patient.
--- NOTE | 2021-11-17 16:36 | P.DS_ITS ---
Discharge Providers Date of Admission: 11/16/21 14:21 Date of Discharge: November 17, 2021 Attending Provider at Admission: Jayant Soler Attending Provider at Discharge: Jayant Soler Primary Care Provider: KAMALJIT Prieto Diagnoses at Discharge Discharge Diagnosis (1) Binocular vision disorder with diplopia: Status: Acute (2) Abnormal gait: Status: Acute (3) Headache: Status: Acute (4) Diabetes: Status: Acute (5) Arthritis of neck: Status: Acute Reason for Visit Reason for Visit: double vision, dizzy Hospital Course Hospital Course Pleasant 56-year-old lady with history of neck arthritis, DM, HTN, HLD, was placed in observation hospital after presenting with about a month duration of headache, and in the morning prior to admission developing also intermittent episodes of diplopia, gait disturbance, difficulty walking leading to the left, and later also while in ER developed paresthesia of right upper and lower extremity. Denies fever or chills. Did have some mild photophobia. CT of the head without evidence of intracranial hemorrhage or mass-effect. Mild small vessel changes, parenchymal volume loss. No acute intracranial findings. She presented outside the window for TPA. CT angiogram head and neck, without significant ICA stenosis bilaterally, left dominant vertebral artery both vertebral arteries patent, normal intracranial CTA. No flow-limiting stenosis. No other acute findings. Given some evolving nature to her neurologic symptoms and headache assessed also by MRI and MRV, with finding of no acute infarct or hemorrhage, mild increase in amount of subcortical white matter lesions greater on right since prior study from 2013, these changes could be seen with migraine headache, diabetes, smoking history and hypertension, all of which she has. No intracranial mass. No orbital abnormality or compression upon the optic chiasm. MRV without dural venous thrombosis, small caliber right transverse sinus is a normal variant. As discussed with her due to possibility of aseptic meningitis secondary to NSAIDs, meloxicam was discontinued. She was monitored on telemetry. Echocardiogram showed normal ejection fraction, normal right ventricular size and systolic function. Her A1c is noted 7.9. Total cholesterol 178, LDL 83, triglycerides 316. She was initially started on aspirin, Plavix, however, without noted CVA, Plavix is stopped. She is continued on statin. Aspirin is continued possibility of TIA, although as discussed with her appears this may have been secondary to a either aseptic meningitis secondary to meloxicam which appears to have resolved currently with discontinuation of the medication, versus TIA. Low-dose aspirin due to this is for now continued. She is asked to continue to optimize risk factors of cardiovascular disease. She is instructed in case of recurrence of similar symptoms to [facility] as the symptoms may be indistinguishable from stroke. Findings on diagnostic studies discussed with her. Her symptoms are today completely resolved. She has no headache, she has no further difficulty with ambulation, no diplopia. She did well with therapy and is asking to return home. She is instructed to discontinue meloxicam on discharge. Physical Exam Const: COMMON NORMALS: no acute distress and patient oriented x3 HENMT: COMMON NORMALS: oropharynx normal Neck/C-Spine: COMMON NORMALS: no JVD; negative for no meningeal signs Resp: COMMON NORMALS: normal respiratory effort and clear to auscultation bilaterally AUSCULTATION: clear to auscultation bilaterally Cardio: COMMON NORMALS: no JVD, regular rhythm, S1 normal heart sound present, S2 normal heart sound present and No murmurs present (Cardio) RHYTHM: regular rhythm HEART SOUNDS: S1 normal heart sound present and S2 normal heart sound present GI: COMMON NORMALS: Normal to inspection, nondistended, normoactive bowel sounds present, Soft to palpation and non-tender PALPATION: Yes Soft to palpation Extremity: COMMON NORMALS: no joint enlargement and no pedal edema Neuro: COMMON NORMALS: patient oriented x3 and moves all extremities MENINGEAL SIGNS: No no meningeal signs COORDINATION/BALANCE: [id number] test normal SENSORY EXAM: Yes extremities and Normal double simultaneous stimulation for sensation MOTOR EXAM: Pronator motor function not present COORDINATION: [id number] test normal OTHER: Tracking well. Visual barnard full to confrontation. Skin: COMMON NORMALS: no rashes or lesions noted GENERAL SKIN EXAM: no rashes or lesions noted Discharge Data Studies Completed and Pending Completed Studies During Hospitalization Category Date Time Status CT head wo con* [id number] Urgent Cat Scan 11/16/21 12:53 Completed CTA head neck [CT angio headneck* [id number]] Urgent Cat Scan 11/16/21 12:53 Completed XR chest 1V portable [id number] Urgent Exams 11/16/21 12:53 Completed MR head wo/w con [id number] Routine MRI 11/17/21 10:00 [place] [id number] Routine MRI 11/17/21 10:00 Completed CV. echo complete* [id number] Routine Ultrasound 11/16/21 18:01 Completed Radiology Impressions Chest X-Ray 11/16/21 12:53 Impression: Negative chest. Head CT 11/16/21 12:53 IMPRESSION: 1. No evidence of intracranial hemorrhage or mass effect. 2. Mild small vessel changes. Mild parenchymal volume loss. 3. No acute intracranial findings. Head/Neck CTA 11/16/21 12:53 IMPRESSION: 1. No significant ICA stenosis bilaterally. 2. LEFT dominant vertebral artery. Both vertebral arteries are patent. 3. Normal intracranial CTA. No flow-limiting stenosis. 4. No other acute findings. Head MRI 11/17/21 10:00 IMPRESSION: 1. No acute infarct or hemorrhage. 2. Mild increased amount of subcortical white matter lesions greater on the RIGHT since the prior study from 2012. These changes can be seen with migraine headache, diabetes, smoking history and hypertension. 3. No intracranial mass. 4. No orbital abnormality or compression upon the optic chiasm. Head/Brain Mag Res Venography 11/17/21 10:00 IMPRESSION: 1. No dural venous thrombosis. 2. Small caliber RIGHT transverse sinus is a normal variant. Laboratory Results WBC 8.4 10^3/uL (4.0-10.0) 11/16/21 13:40 RBC 5.47 10^6/uL (4.1-5.3) H 11/16/21 13:40 Hgb 14.9 g/dL (11.5-15.3) 11/16/21 13:40 Hct 46.1 % (37.0-47.0) 11/16/21 13:40 MCV 84.3 fl (81-99) 11/16/21 13:40 MCH 27.2 pg (28.0-34.0) L 11/16/21 13:40 MCHC 32.3 g/dL (30.0-36.0) 11/16/21 13:40 RDW 13.2 % (12.1-15.1) 11/16/21 13:40 Plt Count 325 10^3/cmm (130-400) 11/16/21 13:40 MPV 10.7 fL (7.4-10.4) H 11/16/21 13:40 Neut % (Auto) 49.6 % 11/16/21 13:40 Lymph % (Auto) 41.5 % 11/16/21 13:40 [place] % (Auto) 6.3 % 11/16/21 13:40 Eos % (Auto) 1.8 % 11/16/21 13:40 Baso % (Auto) 0.6 % 11/16/21 13:40 Neut # (Auto) 4.16 10^3/uL (1.8-7.7) 11/16/21 13:40 Lymph # (Auto) 3.5 10^3/uL (0.8-4.8) 11/16/21 13:40 [place] # (Auto) 0.5 10^3/uL (0.2-0.9) 11/16/21 13:40 Eos # (Auto) 0.2 10^3/uL (0.0-0.8) 11/16/21 13:40 Baso # (Auto) 0.1 10^3/uL (0.0-0.1) 11/16/21 13:40 Nucleated RBC % (auto) 0 % 11/16/21 13:40 Nucleated RBCs # 0.0 /100WBC 11/16/21 13:40 Sodium 132 mmol/L (136-145) L 11/16/21 13:40 Potassium 4.6 mmol/L (3.5-5.1) 11/16/21 13:40 Chloride 96 mmol/L (98-107) L 11/16/21 13:40 Carbon Dioxide 25 mmol/L (22-29) 11/16/21 13:40 Anion Gap 15.6 (5-19) 11/16/21 13:40 BUN 13 mg/dL (6-20) 11/16/21 13:40 Creatinine 0.5 mg/dL (0.5-0.9) 11/16/21 13:40 GFR Calculation 128.6 mL/min (90-130) 11/16/21 13:40 Glucose 95 mg/dL (65-115) 11/16/21 13:40 Estimat Average Glucose 180 11/16/21 13:40 Hemoglobin A1c 7.9 % (4.0-6.0) H 11/16/21 13:40 Calculated Osmolality 274 mOsm/kg (285-295) L 11/16/21 13:40 Calcium 10.2 mg/dL (8.5-10.5) 11/16/21 13:40 Creatine Kinase 77 U/L (26-192) 11/16/21 13:40 Troponin T Baseline 6 ng/L (0-10) 11/16/21 13:40 Troponin T 120 Minute 6.30 ng/L (0-10) 11/16/21 15:50 Delta Troponin T 0.30 ABS# (0-10) 11/16/21 15:50 Triglycerides 316 mg/dL (0-150) H 11/16/21 15:50 Cholesterol 178 mg/dL (0-200) 11/16/21 15:50 LDL Cholesterol, Calc 83 mg/dL (50-129) 11/16/21 15:50 Total VLDL Cholesterol 63 mg/dL (0-30) H 11/16/21 15:50 HDL Cholesterol 32 mg/dL (60-100) L 11/16/21 15:50 Cholesterol/HDL Ratio 5.56 mg/dL (0.0-4.40) H 11/16/21 15:50 Vitals Last Vital Signs Temp 97.5 F L 11/17/21 15:41 Pulse 86 11/17/21 15:41 Resp 16 11/17/21 15:41 BP 146/85 11/17/21 15:41 Pulse Ox 95 11/17/21 15:41 Discharge Plan Discharge Patient Disposition: Home Condition: Stable Prescriptions: New aspirin 81 mg tablet,delayed release (DR/EC) 81 mg PO DAILY Qty: 90 0RF Continued atorvastatin 40 mg Tablet 40 mg PO DAILY 0RF metformin 500 mg Tablet 500 mg PO BID 0RF oxybutynin chloride 10 mg Tablet Extended Release 24hr 10 mg PO DAILY 0RF glyburide 2.5 mg Tablet 2.5 mg PO DAILY 0RF Iron (ferrous sulfate) 325 mg (65 mg iron) Tablet 325 mg PO DAILY 0RF lisinopril 30 mg Tablet 30 mg PO DAILY 0RF atenolol 50 mg Tablet See Rx Instructions .ROUTE .COMPLEX 0RF Rx Instructions: 50 MG PO IN THE MORNING AND 25 MG PO IN EVENING Ozempic 1 mg/dose (2 mg/1.5 mL) Pen Injector 1 mg SUBCUT Q7D 0RF Rx Instructions: ON SATURDAY Discontinued meloxicam 15 mg Tablet 15 mg PO DAILY 0RF Discharge Orders: Discharge Order (Routine); Ordered 11/17/21 Ordered By: Jayant Soler Referrals: Vivek Reyez FNP [Primary Care Provider] - 4-7 days Discharge Diet: Cardiac and Diabetic Discharge Activity: Increase activity as tolerated Patient Instructions: Diplopia (DC), Safe Use of NSAIDs (GEN) Activity Restrictions/Additional Instructions: In case experiencing similar symptoms, or other symptoms that may suggest transient ischemic attack or stroke like facial drooping, arm weakness, speech difficulties, vision disturbance or numbness, seek medical attention immediately. Continue to optimize control of cardiovascular risk factors with your primary doctor including high blood pressure, diabetes, cholesterol. Your symptoms may have been due to a migraine. Still if you are experiencing symptoms that may be similar to stroke, please seek medical attention as these may be difficult or impossible to distinguish at the time. In case of recurrence of symptoms, discussed with your primary doctor consideration of follow-up with neurology. Please stop taking meloxicam, do not take NSAIDs for any prolonged period of time as they can have a number of adverse effects including aseptic meningitis. Discharge Attestations Time Spent in Discharge Care*: greater than 30 min Quality Metrics Clinical Quality Measures [ No reported AMI, CVA or VTE this stay] Coding Level of Care Code Acute Chg FW DC note Diagnoses Binocular vision disorder with diplopia H53.2 Abnormal gait R26.9 Headache R51.9 Diabetes E11.9 Arthritis of neck M47.812
== END 2021-11-17 16:50 | disposition home or self-care (01) ==
LOC: ER 15:27 → MEDSURG 15:33
PROVIDERS: Admitting Provider Internal Medicine; Emergency Provider Emergency Medicine; PCP Nurse Practitioner; Visit Provider Internal Medicine
DX: H53.2 Diplopia (principal); R26.9 Unspecified abnormalities of gait and mobility; R51.9 Headache, unspecified; E11.9 Type 2 diabetes mellitus without complications; M47.812 Spondylosis without myelopathy or radiculopathy, cervical region; M19.90 Unspecified osteoarthritis, unspecified site; I10 Essential (primary) hypertension; E78.5 Hyperlipidemia, unspecified; Z79.84 Long term (current) use of oral hypoglycemic drugs; Z87.891 Personal history of nicotine dependence
CPT/HCPCS: 70450; 70496; 70498; 70544; 70553; 71045; 80048; 80061; 82550; 83036; 84484; 85025; 93005; 93306; 96365; 96372; 96375; 97165; 99285; A9577; G0378; J1650; J2765; J3475; Q9967

== ENCOUNTER 2022-01-09 15:08 | Outpatient (CLI) | payer MEDICAID, SELFPAY ==
--- NOTE | 2022-01-09 15:31 | MM_ITS ---
WS: [id number] BILATERAL 3D TOMOSYNTHESIS DIGITAL SCREENING MAMMOGRAPHY WITH CAD CLINICAL INFORMATION: SCREENING HISTORY: Screening mammogram. No current complaints. COMPARISON: April 26, 2020 TECHNIQUE: Bilateral CC and MLO views. FINDINGS: The breasts are composed of heterogeneous fibroglandular density tissue, which can limit the detectio n of small underlying mass lesions. Punctate and lucent centered calcifications. Stable clustered zacarias cifications posterior depth RIGHT breast were present in 2017. Stable clustered calcifications anteri or LEFT breast. No suspicious mass, asymmetry, calcifications, or architectural distortion. No eviden ce of malignancy. MM/[place] [id number] IMPRESSION: BI-RADS: 2-Benign FOLLOW UP: 1 Year Follow-up Recommend return to annual screening mammography.
== END 2022-01-09 15:09 | disposition home or self-care (01) ==
LOC: RADSHAW 15:10
PROVIDERS: PCP Nurse Practitioner; Visit Provider Nurse Practitioner
DX: Z12.31 Encounter for screening mammogram for malignant neoplasm of breast (principal)
CPT/HCPCS: 77063; 77067

== ENCOUNTER → 2022-01-16 14:26 | Outpatient (BNVA) | payer MEDICAID, SELFPAY | PROVIDERS: PCP Nurse Practitioner; Referring Provider Nurse Practitioner; Visit Provider Orthopaedic Surgery | DX: M48.062 Spinal stenosis, lumbar region with neurogenic claudication (principal); M54.6 Pain in thoracic spine | CPT/HCPCS: 72072; 72110; 99203 ==

== ENCOUNTER 2022-01-22 06:00 | Outpatient (RCR) | payer MEDICAID, SELFPAY | END 2022-01-27 23:59 | disposition home or self-care (01) | LOC: GPT 06:00 | PROVIDERS: PCP Nurse Practitioner; Referring Provider Orthopaedic Surgery; Visit Provider Orthopaedic Surgery | DX: M54.50 Low back pain, unspecified (principal); G89.29 Other chronic pain | CPT/HCPCS: 97162 ==

== ENCOUNTER 2022-01-28 06:00 | Outpatient (RCR) | payer MEDICAID, SELFPAY | END 2022-02-27 23:59 | disposition home or self-care (01) | LOC: GPT 06:00 | PROVIDERS: PCP Nurse Practitioner; Referring Provider Orthopaedic Surgery; Visit Provider Orthopaedic Surgery | DX: G89.29 Other chronic pain (principal); M54.50 Low back pain, unspecified | CPT/HCPCS: 97110; 97112; 97140; 97530; G0283 ==

== ENCOUNTER → 2022-02-27 12:56 | Outpatient (BNVA) | payer MEDICAID, SELFPAY | PROVIDERS: PCP Nurse Practitioner; Visit Provider Orthopaedic Surgery | DX: M48.062 Spinal stenosis, lumbar region with neurogenic claudication (principal) | CPT/HCPCS: 99213 ==

== ENCOUNTER 2022-02-28 06:00 | Outpatient (RCR) | payer MEDICAID, SELFPAY | END 2022-03-08 23:59 | disposition home or self-care (01) | LOC: GPT 06:00 | PROVIDERS: PCP Nurse Practitioner; Referring Provider Orthopaedic Surgery; Visit Provider Orthopaedic Surgery | DX: G89.29 Other chronic pain (principal); M54.50 Low back pain, unspecified | CPT/HCPCS: 97110; 97112; 97530 ==

== ENCOUNTER 2022-11-14 07:08 | Day surgery (SDC) | payer MEDICAID, SELFPAY ==
[2022-11-12 14:12] VITALS: BMI 32.1
[2022-11-14 07:39] VITALS: BP 142/76; PULSE 91; RESP 18; TEMP 35.9; O2SAT 96
[2022-11-14] MEDS: sodium chloride 0.9% 1,000 ML 30 ML IV (07:44)
[2022-11-14 07:47] LABS: Glucose Point of Care 189 mg/dL (70-110)
--- NOTE | 2022-11-14 08:45 | ANES.PREANE2 ---
Pre-Anesthetic Assessment Height/Weight: Height 1.5 m Weight 72.121 kg Temp Pulse Resp BP Pulse Ox O2 Del Method 96.6 F L 91 18 142/76 96 11/14/22 07:39 11/14/22 07:39 11/14/22 07:39 11/14/22 07:39 11/14/22 07:39 11/14/22 07:39 Operation Date: 11/14/22 09:00 Proposed Procedures p Colonoscopy 11519,Z12.11(Not Applicable) - Migue Dewitt, DO Was Beta Alesha taken within 24 hours: Yes Was Clonidine taken within 24 hours: N/A Last intake: Intake Last Liquid Date 11/13/22 Last Liquid Time 21:00 Last Solid Date 11/12/22 Last Solid Time 18:00 Social No alcohol and No tobacco Exam alert, oriented x 3, clear to auscultation bilaterally and regular rate & rhythm Airway Submandibular: within normal limits Cervical ROM: within normal limits Mallampati: Class I Comments: Comments: missing all top middle front teeth History/ROS No significant history except as noted and No significant complaints Pulmonary None reported CV/HEM Hypertension None reported Hepatic None reported GI None reported Metabolic Diabetes Mellitus and Morbid Obesity takes trulicity Musc/skel Lower Back Pain arthritis, spine stenosis Neuropsych None reported Anesthetic Plan ASA status: 3 Anesthesia: Anesthesia Evaluation and MAC Risk of > 500 ml blood loss (7ml/kg in children): Yes, adequate IV access and fluids planned Medications/Allergies Home Medications Medication Instructions Recorded Confirmed Last Taken Type atenolol 50 mg tablet See Rx Instructions .Route .COMPLEX 11/16/21 11/12/22 11/13/22 History atorvastatin 40 mg tablet 40 mg PO DAILY 11/16/21 11/12/22 11/13/22 History ferrous sulfate 325 mg (65 mg 325 mg PO DAILY 11/16/21 11/12/22 11/13/22 History iron) tablet (Iron (ferrous sulfate)) glyburide 2.5 mg tablet 2.5 mg PO DAILY 11/16/21 11/12/22 11/13/22 History lisinopril 30 mg tablet 30 mg PO DAILY 11/16/21 11/12/22 11/13/22 History metformin 500 mg tablet 500 mg PO BID 11/16/21 11/12/22 11/13/22 History oxybutynin chloride 10 mg 10 mg PO DAILY 11/16/21 11/12/22 11/13/22 History tablet,extended release 24 hr meloxicam 15 mg tablet 15 mg PO DAILY 01/16/22 11/12/22 11/13/22 History dulaglutide 1.5 mg/0.5 mL 1.5 mg SUBCUT Q7D 10/16/22 11/12/22 11/02/22 History subcutaneous pen injector (Trulicity) fenofibrate 160 mg tablet 160 mg PO DAILY 10/16/22 11/12/22 11/13/22 History furosemide 20 mg tablet 40 mg PO DAILY 10/16/22 11/12/22 11/13/22 History potassium chloride 10 mEq 20 meq PO DAILY 10/16/22 11/12/22 11/13/22 History tablet,extended release Allergies Allergy/AdvReac Type Severity Reaction Status Date / Time No Known Allergies Allergy Verified 11/14/22 07:31 Current Medications Generic Name Dose Route Start Last Admin Trade Name Freq PRN Reason Stop Dose Admin Sodium Chloride 1,000 mls @ 30 mls/hr 11/14/22 07:15 11/14/22 07:44 Sodium Chloride 0.9% IV 11/15/22 07:14 30 mls/hr .Q24H MARGARITO Administration PFSH Anesthesia Medical History Abnormal gait Arthritis of neck Asthma Binocular vision disorder with diplopia Bleeding hemorrhoids Diabetes Headache Hypertension Pulmonary disease Surgical History H/O tubal ligation Family History Sister Cancer Social History Smoking and tobacco status: former smoker Female Reproductive History Date of last menstrual period: 11/28/16 Data Anesthesia Cardiac Studies: Echocardiogram 11/16/21
--- NOTE | 2022-11-14 09:11 | W.PM.OPSUD ---
Surgery/Procedure H&P Update DATE OF PROCEDURE: November 14, 2022 DATE H&P PERFORMED: 10/16/22 PLANNED PROCEDURE: Operation Date: 11/14/22 09:00 Proposed Procedures p Colonoscopy 74856,Z12.11(Not Applicable) - Migue Dewitt DO
[2022-11-14 09:28] VITALS: BP 114/74; PULSE 81; RESP 12; TEMP 36.8; O2SAT 94
[2022-11-14 09:33] VITALS: BP 122/69; PULSE 81; RESP 14; O2SAT 92
[2022-11-14 09:43] VITALS: BP 128/80; PULSE 75; RESP 16; O2SAT 96
--- NOTE | 2022-11-14 15:47 | ANE.PACU2 ---
Inpatient post-anesthesia follow up: Airway intact: Yes Vital signs: Temperature 98.2 F Pulse Rate 75 Respiratory Rate 16 Blood Pressure 128/80 Pulse Oximetry 96 Oxygen Delivery Me thod Room Air Oxygen Flow Rate Fraction of Inspir ed Oxygen Hydration adequate: Yes Nausea and vomiting: No Pain level: 2 Mental status: Baseline
== END 2022-11-14 10:00 | disposition home or self-care (01) ==
PROVIDERS: PCP Nurse Practitioner; Visit Provider Surgery
PROC: 0DJD8ZZ Inspection of Lower Intestinal Tract, Via Natural or Artificial Opening Endoscopic (ICD-10-PCS; CPT 45378; principal; 2022-11-14 09:00)
DX: Z12.11 Encounter for screening for malignant neoplasm of colon (principal); I10 Essential (primary) hypertension; E11.9 Type 2 diabetes mellitus without complications; E66.01 Morbid (severe) obesity due to excess calories; Z68.32 Body mass index [BMI] 32.0-32.9, adult
CPT/HCPCS: 36416; 45378; 82962; G0121; J2704; J7030

== ENCOUNTER 2023-01-17 12:58 | Outpatient (CLI) | payer MEDICAID, SELFPAY ==
--- NOTE | 2023-01-17 13:05 | MM_ITS ---
WS: [id number] BILATERAL 3D TOMOSYNTHESIS DIGITAL SCREENING MAMMOGRAPHY WITH CAD CLINICAL INFORMATION: SCREENING HISTORY: Screening mammogram. No current complaints. COMPARISON: 2021 TECHNIQUE: Bilateral CC and MLO views. FINDINGS: The breasts are composed of heterogeneous fibroglandular density tissue, which can limit the detectio n of small underlying mass lesions. No suspicious mass, asymmetry, calcifications, or architectural d istortion. No evidence of malignancy. Punctate and lucent centered calcifications. MM/[place] [id number] IMPRESSION: BI-RADS: 2-Benign FOLLOW UP: 1 Year Follow-up Recommend return to annual screening mammography.
== END 2023-01-17 12:59 | disposition home or self-care (01) ==
LOC: RAD 13:03
PROVIDERS: PCP Nurse Practitioner; Visit Provider Nurse Practitioner
DX: Z12.31 Encounter for screening mammogram for malignant neoplasm of breast (principal)
CPT/HCPCS: 77063; 77067

== ENCOUNTER 2023-02-15 18:16 | Emergency (ER) | payer MEDICAID, SELFPAY ==
[2023-02-15 18:21] VITALS: BP 194/100; PULSE 99; RESP 16; TEMP 36.7; O2SAT 98; BMI 31.3
[2023-02-15 20:06] VITALS: BP 151/87; PULSE 85; RESP 16; O2SAT 95
--- NOTE | 2023-02-15 20:09 | ECG_ITS ---
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 Measurements Intervals [place] Rate: 80 P: 51 MS: 179 QRS: -20 QRSD: 122 T: 54 QT: 366 QTc: 424 Interpretive Statements SINUS RHYTHM MINIMAL VOLTAGE CRITERIA FOR LVH, CONSIDER NORMAL VARIANT [MEETS CRITERIA IN ONE OF: R(aVL), S(V1), R(V5), R(V5/V6)+S(V1)] POSSIBLE ANTERIOR MYOCARDIAL INFARCTION , OF INDETERMINATE AGE [30 ms Q WAVE IN V3/V4, OR R < 0.2 mV IN V4] Compared to ECG 11/16/2021 17:23:13 No significant changes Electronically Signed On 02-16-2023 5:55:19 CDT by Lila Franks M.D. [id number]
[2023-02-15 20:18] LABS: Basophils # 0.1 10^3/uL (0.0-0.1); Basophils % 0.5 %; Eosinophils # 0.1 10^3/uL (0.0-0.8); Eosinophils % 1.2 %; Hematocrit 45.4 % (37.0-47.0); Hemoglobin 14.9 g/dL (11.5-15.3); Lymphocytes # 3.2 10^3/uL (0.8-4.8); Lymphocytes % 33.2 %; Mean Corpuscular HGB Conc 32.8 g/dL (30.0-36.0); Mean Corpuscular Hemoglobin 27.3 pg (28.0-34.0); Mean Corpuscular Volume 83.3 fl (81-99); Mean Platelet Volume 10.6 fL (7.4-10.4); Monocytes # 0.7 10^3/uL (0.2-0.9); Monocytes % 6.8 %; Neutrophils # 5.51 10^3/uL (1.8-7.7); Nucleated Red Blood Cells % 0 %; Platelet Count 393 10^3/cmm (130-400); Red Blood Count 5.45 10^6/uL (4.1-5.3); Red Cell Distribution Width 13.7 % (12.1-15.1); White Blood Count 9.5 10^3/uL (4.0-10.0)
[2023-02-15] MEDS: ondansetron 2 mg/ML SDV 2 mL 4 MG IVP (20:40)
[2023-02-15] MEDS: sodium chloride 0.9% 1,000 ML 999 ML IV (20:41)
[2023-02-15] MEDS: ketorolac 30 mg/mL INJ 15 MG IVP (20:41)
[2023-02-15] MEDS: valproic acid inj 500 MG in sodium chloride 0.9% 50 ML 55 MG IV (20:41)
[2023-02-15 20:44] LABS: Ketone (Acetest) Serum Negative (Negative)
[2023-02-15 20:57] LABS: Alanine Aminotransferase 44 U/L (0-33); Albumin Level 4.9 g/dL (3.5-5.2); Alkaline Phosphatase 46 U/L (35-105); Aspartate Amino Transferase 43 U/L (0-32); Blood Urea Nitrogen 19 mg/dL (6-20); Calcium 10.3 mg/dL (8.5-10.5); Carbon Dioxide 25 mmol/L (22-29); Chloride 98 mmol/L (98-107); Globulin 3.2 g/dL (1.3-4.6); Glomerular Filtration Rate 86.6 mL/min (90-130); Glucose 147 mg/dL (65-115); Lipase 65 U/L (13-60); Magnesium 1.9 mg/dL (1.7-2.3); Osmolality Calculated 289 mOsm/kg (285-295); Sodium 137 mmol/L (136-145); Total Bilirubin 0.3 mg/dL (0.15-1.2); Total Protein 8.1 g/dL (6.6-8.7)
[2023-02-15 20:58] LABS: Troponin(5th) Baseline 6 ng/L (0-10)
[2023-02-15 21:42] VITALS: BP 147/88; PULSE 78; RESP 16; O2SAT 95
--- NOTE | 2023-02-15 21:46 | CTR_ITS ---
PROCEDURE INFORMATION: Exam: CT Head Without Contrast Exam date and time: 02/15/2023 10:02 PM Age: 57 years old Clinical indication: Pain; Headache not specified TECHNIQUE: Imaging protocol: Computed tomography of the head without contrast. Radiation optimization: All CT scans at this facility use at least one of these dose optimization techniques: automated exposure control; mA and/or kV adjustment per patient size (includes targeted exams where dose is matched to clinical indication); or iterative reconstruction. REPORTING DATA: Count of CT and Cardiac NM exams in prior 12 months: This patient has received 0 known CTs and 0 known cardiac nuclear medicine studies in the 12 months prior to the current study. COMPARISON: MR head wo/w con [id number] 11/17/2021 11:08 AM RADIATION DOSE METRICS: Total DLP (mGy-cm): 1180.88 FINDINGS: Brain: No acute infarct. No hemorrhage. Stable mild patchy involutional white matter changes. No mass effect. Cerebral ventricles: No ventriculomegaly. Paranasal sinuses: Visualized sinuses are unremarkable. No fluid levels. Mastoid air cells: Visualized mastoid air cells are well aerated. Bones/joints: Unremarkable. No acute fracture. Soft tissues: Unremarkable. CT/CT head wo con* [id number] IMPRESSION: No acute intracranial abnormality.
[2023-02-15] MEDS: fentaNYL 50 mcg/mL INJ 2mL IVP (21:51)
[2023-02-15 22:00] VITALS: BP 157/85; PULSE 77; RESP 16; O2SAT 95
--- NOTE | 2023-02-15 22:14 | ECG_ITS ---
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 Measurements Intervals Lane Rate: 70 P: 42 MT: 188 QRS: -16 QRSD: 119 T: 38 QT: 393 QTc: 425 Interpretive Statements SINUS RHYTHM LOW QRS VOLTAGE IN PRECORDIAL LEADS [QRS DEFLECTION < 1.0 mV IN CHEST LEADS] POSSIBLE ANTERIOR MYOCARDIAL INFARCTION , OF INDETERMINATE AGE [30 ms Q WAVE IN V3/V4, OR R < 0.2 mV IN V4] Compared to ECG 02/15/2023 20:19:03 Low QRS voltage now present Myocardial infarct finding still present Electronically Signed On 02-16-2023 14:01:48 CDT by Lakhwinder Delgadillo M.D. [id number]
[2023-02-15 22:25] LABS: Troponin 5 2HR 7.35 ng/L (0-10)
[2023-02-15 22:30] LABS: Troponin 5 2HR Delta 1.35 ABS# (0-10)
[2023-02-15 22:41] VITALS: BP 118/67; RESP 16; O2SAT 93
[2023-02-15 23:52] VITALS: BP 118/67; PULSE 77; RESP 16; TEMP 36.7; O2SAT 93
--- NOTE | 2023-02-16 00:54 | W.ED.HA ---
HPI - Headache General: Chief Complaint: Nausea/Vomiting/Diarrhea Stated Complaint: headache Time Seen by Provider: 02/15/23 19:49 Source: patient and family History of Present Illness: 57-year-old female with a headache since 1 AM. She also notes a discomfort in her epigastric region, with nausea. She is not really in pain. No vomiting. No diarrhea. No fever. She has taken Excedrin without improvement in her headache or the nausea. MD elicited complaint: headache Pertinent past history: other Onset (ago): hour(s) Onset description: suddenly Location: frontal Exacerbating factors: none Relieving factors: nothing Associated symptoms: Reports nausea and photophobia; Deny chest pain, confusion, cough, fever(s), neck stiffness, short of breath or vomiting Review of Systems Const: Denies: fever(s) Eyes: Denies: change in vision ENMT: Denies: throat pain Card: Denies: chest pain Resp: Denies: dyspnea, productive cough or non-productive cough GI: Reports: nausea; Denies: abdominal pain, vomiting or diarrhea Musc: Denies: neck pain Neuro: Denies: confusion PFSH ED PFSH: Medical History Abnormal gait Arthritis of neck Asthma Binocular vision disorder with diplopia Bleeding hemorrhoids Diabetes Headache Hypertension Pulmonary disease Surgical History H/O tubal ligation Family History Sister Cancer Social History Smoking and tobacco status: former smoker Physical Exam Const: COMMON NORMALS: no acute distress GENERAL APPEARANCE: cooperative; not ill appearing and not frail appearing HENMT: COMMON NORMALS: normocephalic, atraumatic and Normal external nose present HEAD & SCALP: normocephalic and atraumatic FACE & SINUS: normal facial exam and face symmetric NOSE: Normal external nose present Eye: COMMON NORMALS: Equal, round and reactive pupils present and EOMs intact bilaterally PUPIL: Yes Equal, round and reactive pupils present DIRECT OPHTHALMOSCOPY: Yes photophobia Neck/C-Spine: GENERAL: Yes trachea midline Chest: CHEST: Yes Symmetrical chest wall rise Resp: COMMON NORMALS: normal respiratory effort, No retractions, No use of accessory muscles and clear to auscultation bilaterally AUSCULTATION: clear to auscultation bilaterally Cardio: COMMON NORMALS: regular rate and regular rhythm RATE: regular rate RHYTHM: regular rhythm GI: COMMON NORMALS: Normal to inspection, nondistended, normoactive bowel sounds present Extremity: COMMON NORMALS: no pedal edema Neuro: ALEXX COMA SCALE: document GCS findings Gallagher coma scale eye opening: Spontaneous Alexx coma scale verbal response: Orientated Gallagher coma scale motor response: Obey commands Gallagher coma scale total score: 15 SENSORY EXAM: Yes extremities (intact) Psych: COMMON NORMALS: speech normal SPEECH: Yes normal speech Skin: COMMON NORMALS: no rashes or lesions noted GENERAL SKIN EXAM: no rashes or lesions noted Course Vital Signs: Vital signs: Vital Signs Temperature 98.0 F 02/15/23 23:52 Pulse Rate 77 02/15/23 23:52 Respiratory Rate 16 02/15/23 23:52 Blood Pressure 118/67 02/15/23 23:52 Pulse Oximetry 93 02/15/23 23:52 Oxygen Delivery Me thod Room Air 02/15/23 18:21 MDM - Headache Medical Decision Making Headache is essentially resolved after Depacon, Zofran, Toradol, and a small dose of fentanyl. Laboratory shows a normal CBC, nonremarkable BMP, ketones are negative. Glucose is 147. Lipase is 65. Delta troponin is 1. Bilirubin is 0.3. Head CT shows no acute abnormality. Her belly is nontender on exam. With improvement in her symptoms, she will be allowed home to return for any new or worsening ones. Lab Data 02/15/23 19:53 02/15/23 19:[address] 02/15/23 21:46 IMPRESSION: No acute intracranial abnormality. Laboratory Results WBC 9.5 10^3/uL (4.0-10.0) 02/15/23 19:53 RBC 5.45 10^6/uL (4.1-5.3) H 02/15/23 19:53 Hgb 14.9 g/dL (11.5-15.3) 02/15/23 19:53 Hct 45.4 % (37.0-47.0) 02/15/23 19:53 MCV 83.3 fl (81-99) 02/15/23 19:53 MCH 27.3 pg (28.0-34.0) L 02/15/23 19:53 MCHC 32.8 g/dL (30.0-36.0) 02/15/23 19:53 RDW 13.7 % (12.1-15.1) 02/15/23 19:53 Plt Count 393 10^3/cmm (130-400) 02/15/23 19:53 MPV 10.6 fL (7.4-10.4) H 02/15/23 19:53 Neut % (Auto) 58.0 % 02/15/23 19:53 Lymph % (Auto) 33.2 % 02/15/23 19:53 [place] % (Auto) 6.8 % 02/15/23 19:53 Eos % (Auto) 1.2 % 02/15/23 19:53 Baso % (Auto) 0.5 % 02/15/23 19:53 Neut # (Auto) 5.51 10^3/uL (1.8-7.7) 02/15/23 19:53 Lymph # (Auto) 3.2 10^3/uL (0.8-4.8) 02/15/23 19:53 [place] # (Auto) 0.7 10^3/uL (0.2-0.9) 02/15/23 19:53 Eos # (Auto) 0.1 10^3/uL (0.0-0.8) 02/15/23 19:53 Baso # (Auto) 0.1 10^3/uL (0.0-0.1) 02/15/23 19:53 Nucleated RBC % (auto) 0 % 02/15/23 19:53 Nucleated RBCs # 0.0 /100WBC 02/15/23 19:53 Sodium 137 mmol/L (136-145) 02/15/23 19:53 Potassium 4.0 mmol/L (3.5-5.1) 02/15/23 19:53 Chloride 98 mmol/L (98-107) 02/15/23 19:53 Carbon Dioxide 25 mmol/L (22-29) 02/15/23 19:53 Anion Gap 18.0 (5-19) 02/15/23 19:53 BUN 19 mg/dL (6-20) 02/15/23 19:53 Creatinine 0.7 mg/dL (0.5-0.9) 02/15/23 19:53 GFR Calculation 86.6 mL/min (90-130) L 02/15/23 19:53 Glucose 147 mg/dL (65-115) H 02/15/23 19:53 Calculated Osmolality 289 mOsm/kg (285-295) 02/15/23 19:53 Calcium 10.3 mg/dL (8.5-10.5) 02/15/23 19:53 Magnesium 1.9 mg/dL (1.7-2.3) 02/15/23 19:53 Total Bilirubin 0.3 mg/dL (0.15-1.2) 02/15/23 19:53 AST 43 U/L (0-32) H 02/15/23 19:53 ALT 44 U/L (0-33) H 02/15/23 19:53 Alkaline Phosphatase 46 U/L (35-105) 02/15/23 19:53 Troponin T Baseline 6 ng/L (0-10) 02/15/23 19:53 Troponin T 120 Minute 7.35 ng/L (0-10) 02/15/23 21:51 Delta Troponin T 1.35 ABS# (0-10) 02/15/23 21:51 Total Protein 8.1 g/dL (6.6-8.7) 02/15/23 19:53 Albumin 4.9 g/dL (3.5-5.2) 02/15/23 19:53 Globulin 3.2 g/dL (1.3-4.6) 02/15/23 19:53 Lipase 65 U/L (13-60) H 02/15/23 19:53 Serum Ketones Negative (Negative) 02/15/23 19:53 Discharge Plan Discharge Patient Disposition: Home Clinical Impression: Headache Condition: Stable Prescriptions: New ondansetron 4 mg film 4 mg PO DAILY PRN (Reason: nausea and vomiting) Qty: 10 0RF No Action meloxicam 15 mg tablet 15 mg PO DAILY fenofibrate 160 mg tablet 160 mg PO DAILY furosemide 20 mg tablet 40 mg PO DAILY potassium chloride 10 mEq tablet extended release 20 meq PO DAILY Trulicity 1.5 mg/0.5 mL pen injector 1.5 mg SUBCUT Q7D atorvastatin 40 mg Tablet 40 mg PO DAILY metformin 500 mg Tablet 500 mg PO BID oxybutynin chloride 10 mg Tablet Extended Release 24hr 10 mg PO DAILY glyburide 2.5 mg Tablet 2.5 mg PO DAILY ferrous sulfate [Iron (ferrous sulfate)] 325 mg (65 mg iron) Tablet 325 mg PO DAILY lisinopril 30 mg Tablet 30 mg PO DAILY atenolol 50 mg Tablet See Rx Instructions .ROUTE .COMPLEX Rx Instructions: 50 MG PO IN THE MORNING AND 25 MG PO IN EVENING Discharge Orders: Discharge ED (Routine); Ordered 02/15/23 Ordered By: Seth Meeks Referrals: Vivek Reyez, FLIGHT OPERATIONS INSPECTOR [Primary Care Provider] - 1-3 days Patient Instructions: General Headache (ED), Opioid Safety, Pain Management Activity Restrictions/Additional Instructions: Take nausea medication scheduled every 4 hours while awake for the next 24 hours, then as needed following. Return for fever, worsening pain, worsening mental status, trouble with speech or language or weakness, vomiting liquids, any other concerning symptoms. Coding Level of Care Code ED Tool And Die Inspector for Aldair Benito
== END 2023-02-15 23:53 | disposition home or self-care (01) ==
PROVIDERS: Emergency Provider Emergency Medicine; PCP Nurse Practitioner
DX: R51.9 Headache, unspecified (principal); Z79.85 Long-term (current) use of injectable non-insulin antidiabetic drugs; Z79.84 Long term (current) use of oral hypoglycemic drugs; E11.9 Type 2 diabetes mellitus without complications; I10 Essential (primary) hypertension; Z87.891 Personal history of nicotine dependence
CPT/HCPCS: 36415; 70450; 80053; 82009; 83690; 83735; 84484; 85025; 93005; 96365; 96375; 99285; J1885; J2405; J3010; J3490; J7030

== ENCOUNTER → 2023-07-05 11:13 | Outpatient (BNVA) | payer MEDICAID, SELFPAY | PROVIDERS: PCP Nurse Practitioner; Visit Provider Podiatrist Foot & Ankle Surgery | DX: M79.672 Pain in left foot; E11.42 Type 2 diabetes mellitus with diabetic polyneuropathy; Z79.84 Long term (current) use of oral hypoglycemic drugs | CPT/HCPCS: 73630 ==

== ENCOUNTER 2024-01-20 13:00 | Outpatient (CLI) | payer MEDICAID, SELFPAY ==
--- NOTE | 2024-01-20 13:10 | MM_ITS ---
WS: [id number] BILATERAL 3D TOMOSYNTHESIS DIGITAL SCREENING MAMMOGRAPHY WITH CAD CLINICAL INFORMATION: SCREENING HISTORY: Screening mammogram. No current complaints. COMPARISON: 2022 TECHNIQUE: Bilateral CC and MLO views. FINDINGS: The breasts are composed of heterogeneous fibroglandular density tissue, which can limit the detectio n of small underlying mass lesions. No suspicious mass, asymmetry, calcifications, or architectural d istortion. No evidence of malignancy. Incidental punctate and lucent centered calcifications. IMPRESSION: MM/[place] [id number] BI-RADS: 2-Benign FOLLOW UP: 1 Year Follow-up Recommend return to annual screening mammography.
== END 2024-01-20 13:01 | disposition home or self-care (01) ==
LOC: RAD 13:01
PROVIDERS: PCP Nurse Practitioner; Visit Provider Nurse Practitioner
DX: Z12.31 Encounter for screening mammogram for malignant neoplasm of breast (principal)
CPT/HCPCS: 77063; 77067

== ENCOUNTER 2024-04-26 09:38 | Emergency (ER) | payer MEDICAID, SELFPAY ==
[2024-04-26 09:48] VITALS: BP 176/74; PULSE 107; TEMP 36.8; O2SAT 97; BMI 30.7
--- NOTE | 2024-04-26 09:53 | CTR_ITS ---
PROCEDURE INFORMATION: Exam: CT Abdomen And Pelvis With Contrast Exam date and time: 04/26/2024 10:32 AM Age: 58 years old Clinical indication: Abdominal pain; Flank; Left TECHNIQUE: Imaging protocol: Computed tomography of the abdomen and pelvis with contrast. Radiation optimization: All CT scans at this facility use at least one of these dose optimization techniques: automated exposure control; mA and/or kV adjustment per patient size (includes targeted exams where dose is matched to clinical indication); or iterative reconstruction. Contrast material: OMNI 350; Contrast volume: 100 ml; Contrast route: INTRAVENOUS (IV); COMPARISON: CT abdomen pelvis w con* [id number] 10/15/2019 7:22 PM RADIATION DOSE METRICS: Total DLP (mGy-cm): 725.75 FINDINGS: Liver: The liver is unremarkable. Gallbladder and biliary ducts: The gallbladder is unremarkable. No biliary ductal dilatation. Pancreas: The pancreas is unremarkable. Spleen: Small coarse calcifications within the spleen likely secondary to prior granulomatous disease. Adrenal glands: The adrenal glands are unremarkable. Kidneys and ureters: Multiple tiny hypoattenuating lesions in the bilateral kidneys, too small to further characterize, likely cysts. No hydronephrosis or hydroureter. No large renal stones. Stable mild cortical scarring of the left kidney upper pole. Overall stable appearance of the left kidney compared to 10/15/2019. Stomach and bowel: Nonobstructive bowel gas pattern. Appendix: No evidence of acute appendicitis. Intraperitoneal space: No significant free fluid in the abdomen or pelvis. Vasculature: Minimal scattered calcific disease of the abdominal aorta. No abdominal aortic aneurysm. Lymph nodes: Small calcified lymph nodes in the right hilar region. No suspicious pathologically enlarged lymphadenopathy. Urinary bladder: Urinary bladder is within normal limits. Reproductive: Visualized reproductive structures are within normal limits. Bones/joints: No acute osseous findings. Soft tissues: Visualized superficial soft tissues are within normal limits. CT/CT abdomen pelvis w con* [id number] IMPRESSION: No acute findings in the abdomen/pelvis. COMMENTS: Consistent with the [employer]'s Incidental Findings Committee white paper (J Am Pedro Luis Radiol 2018): Any incidental renal lesion less than 1 cm or classified as too small to characterize, or any incidental cystic renal lesion characterized as simple-appearing, is likely benign. No follow-up imaging is recommended for these lesions per consensus recommendations based on imaging criteria.
--- NOTE | 2024-04-26 10:05 | ED_ITS ---
HPI - Abdominal Pain 2 General: Chief Complaint: Abdominal Pain Stated Complaint: left kidney pain Time Seen by Provider: 04/26/24 09:50 History of Present Illness: 58-year-old female with a history of obe sity, hypertension, hyperlipidemia, diabetes and asthma who presents to the emergency room with left lateral abdominal pain for the past month. She says she has been to her primary care who had checked her urine and had started on antibiotics but stopped them when the urine was negative. She also did an ultrasound which showed fatty liver and an dense left kidney . She has a CT scheduled for next week but she says the pain just had become such that she could not wait any longer and so she came to the emergency room today. No fevers. No nausea or vomiting. No dysuria. No altered mental status. No focal motor deficits. Review of Systems 2 Narrative: Constitutional symptoms: Negative except as documented in HPI. Skin symptoms: Negative except as documented in HPI. Eye symptoms: Negative except as documented in HPI. ENMT symptoms: Negative except as documented in HPI. Respiratory symptoms: Negative except as documented in HPI. Cardiovascular symptoms: Negative except as documented in HPI. Gastrointestinal symptoms: Negative except as documented in HPI. Genitourinary symptoms: Negative except as documented in HPI. Musculoskeletal symptoms: Negative except as documented in HPI. Neurologic symptoms: Negative except as documented in HPI. Psychiatric symptoms: Negative except as documented in HPI. Endocrine symptoms: Negative except as documented in HPI. PFSH ED 2 PFSH: Medical History Arthritis of neck Bleeding hemorrhoids Abnormal gait Binocular vision disorder with diplopia Headache Pulmonary disease Diabetes Hypertension Asthma Surgical History H/O tubal ligation Family History Sister Cancer Social History Smoking and tobacco/nicotine status: former use of tobacco/nicotine Physical Exam 2 Narrative: EXAM NARRATIVE: General: Alert, no acute distress. Skin: Warm, dry. Head: Normocephalic, atraumatic. Neck: Supple, trachea midline. Eye: Extraocular movements are intact. Ears, nose, mouth and throat: mucosa moist. Cardiovascular: Regular, Normal peripheral perfusion. Respiratory: Lungs are clear to auscultation, respirations are non-labored, breath sounds are equal, Symmetrical chest wall expansion. Gastrointestinal: Soft, Nontender, Non distended Musculoskeletal: Normal ROM, no deformity. Neurological: Alert and oriented, No focal neurological deficit observed. Psychiatric: Cooperative, appropriate mood & affect. Course 2 Vital Signs: Vital signs: Vital Signs Temperature 98.2 F 04/26/24 09:48 Pulse Rate 107 H 04/26/24 09:48 Blood Pressure 176/74 04/26/24 09:48 Pulse Oximetry 97 04/26/24 09:48 Oxygen Delivery Me thod Room Air 04/26/24 09:48 MDM - Abdominal Pain Medical Decision Making Medical decision making: Differential diagnosis including but not limited to and based on the above HPI, review of systems and physical exam: Ureterolithiasis. Urinary tract infection. Appendicitis. Cholecystis. Musculoskeletal / back pain. Pyelonephritis Orders placed to evaluate differential diagnosis based on the above differential, HPI and physical exam Lab Review: Laboratory results were reviewed and interpreted by myself the emergency room physician. Lab work is unremarkable other than the slight elevation in her BUN at 26 and hyperglycemia with a glucose of 277. Creatinine is normal at 0.8. No leukocytosis. No anemia. CT of the abdomen pelvis with contrast: This shows no acute abnormalities. This was reviewed and interpreted by myself the emergency room physician. I also reviewed the radiology report. I reviewed the patient's medical record. Reexamination: Patient remained stable. No increased work of breathing. No altered mental status. No focal motor deficits. Assessment and plan: Hyperglycemia Abdominal pain -500 mL normal saline bolus and some Toradol. - Discharged home - Discussed findings and plan with patient. Answered any questions. - All laboratory values were reviewed and interpreted personally by myself, the ER physician - All imaging was reviewed and interpreted personally by myself, the ER physician. - Evaluation and treatment of this problem were appropriate in the emergency setting Lab Data 04/26/24 10:12 04/26/24 10:12 Labs/Radiology: Radiology Impressions Abdomen/Pelvis CT 04/26/24 09:53 IMPRESSION: No acute findings in the abdomen/pelvis. COMMENTS: Consistent with the [employer]'s Incidental Findings Committee white paper (J Am Pedro Luis Radiol 2018): Any incidental renal lesion less than 1 cm or classified as too small to characterize, or any incidental cystic renal lesion characterized as simple-appearing, is likely benign. No follow-up imaging is recommended for these lesions per consensus recommendations based on imaging criteria. Laboratory Results WBC 6.25 10^3/uL (3.29-11.43) 04/26/24 10:12 RBC 4.90 10^6/uL (3.85-5.65) 04/26/24 10:12 Hgb 13.20 g/dL (11.27-16.99) 04/26/24 10:12 Hct 41.5 % (36-47) 04/26/24 10:12 MCV 84.7 fl (85-98) L 04/26/24 10:12 MCH 26.9 pg (27-33) L 04/26/24 10:12 MCHC 31.8 g/dL (30-55) 04/26/24 10:12 RDW 14.0 % (12.1-15.1) 04/26/24 10:12 Plt Count 273 10^3/cmm (157-399) 04/26/24 10:12 MPV 11.0 fL (7.4-10.4) H 04/26/24 10:12 Neut % (Auto) 56.2 % 04/26/24 10:12 Lymph % (Auto) 30.6 % 04/26/24 10:12 [place] % (Auto) 7.8 % 04/26/24 10:12 Eos % (Auto) 4.5 % 04/26/24 10:12 Baso % (Auto) 0.6 % 04/26/24 10:12 Neut # (Auto) 3.51 10^3/uL (1.8-7.7) 04/26/24 10:12 Lymph # (Auto) 1.9 10^3/uL (0.8-4.8) 04/26/24 10:12 [place] # (Auto) 0.5 10^3/uL (0.2-0.9) 04/26/24 10:12 Eos # (Auto) 0.3 10^3/uL (0.0-0.8) 04/26/24 10:12 Baso # (Auto) 0.0 10^3/uL (0.0-0.1) 04/26/24 10:12 Nucleated RBC % (auto) 0 % 04/26/24 10:12 Nucleated RBCs # 0.0 /100WBC 04/26/24 10:12 Sodium 136 mmol/L (136-145) 04/26/24 10:12 Potassium 4.2 mmol/L (3.5-5.1) 04/26/24 10:12 Chloride 95 mmol/L (98-107) L 04/26/24 10:12 Carbon Dioxide 24 mmol/L (22-29) 04/26/24 10:12 Anion Gap 21.2 (5-19) H 04/26/24 10:12 BUN 26 mg/dL (6-20) H 04/26/24 10:12 Creatinine 0.8 mg/dL (0.5-0.9) 04/26/24 10:12 GFR Calculation 73.9 mL/min (90-130) L 04/26/24 10:12 Glucose 277 mg/dL (65-115) H 04/26/24 10:12 Calculated Osmolality 297 mOsm/kg (285-295) H 04/26/24 10:12 Calcium 10.9 mg/dL (8.5-10.5) H 04/26/24 10:12 Total Bilirubin 0.6 mg/dL (0.15-1.2) 04/26/24 10:12 AST 45 U/L (0-32) H 04/26/24 10:12 ALT 44 U/L (0-33) H 04/26/24 10:12 Alkaline Phosphatase 52 U/L (35-105) 04/26/24 10:12 C-Reactive Protein 4.7 mg/L (0.0-4.9) 04/26/24 10:12 Total Protein 8.3 g/dL (6.6-8.7) 04/26/24 10:12 Albumin 4.7 g/dL (3.5-5.2) 04/26/24 10:12 Globulin 3.6 g/dL (1.3-4.6) 04/26/24 10:12 Urine Color Yellow (Yellow) 04/26/24 09:58 Urine Appearance Clear (CLEAR) 04/26/24 09:58 Urine pH 5 (5-7) 04/26/24 09:58 Ur Specific [place] 1.010 (1.005-1.030) 04/26/24 09:58 Urine Protein Trace (Negative) 04/26/24 09:58 Urine Glucose (UA) 4+ (Normal) H 04/26/24 09:58 Urine Ketones Negative (Negative) 04/26/24 09:58 Urine Blood Neg (Negative) 04/26/24 09:58 Urine Nitrate Negative (Negative) 04/26/24 09:58 Urine Bilirubin Neg (Negative) 04/26/24 09:58 Urine Urobilinogen Norm mg/dL (Negative) 04/26/24 09:58 Ur Leukocyte Esterase Negative (Negative) 04/26/24 09:58 Urine RBC None /hpf (0-2) 04/26/24 09:58 Urine WBC 0-4 /hpf (0-5) H 04/26/24 09:58 Ur Squamous Epith Cells None /hpf (0-5) 04/26/24 09:58 Amorphous Sediment Not Reportable 04/26/24 09:58 Urine Bacteria Trace /hpf (NONE) 04/26/24 09:58 All radiology interpretation(s) finalized by discharge Discharge Plan Discharge Patient Disposition: Home Clinical Impression: Hyperglycemia, Abdominal pain Condition: Stable Prescriptions: New diclofenac sodium 50 mg tablet,delayed release (DR/EC) 50 mg PO Q12H Qty: 20 0RF No Action fenofibrate 160 mg tablet 160 mg PO DAILY furosemide 20 mg tablet 40 mg PO DAILY potassium chloride 10 mEq tablet extended release 20 meq PO DAILY Trulicity 1.5 mg/0.5 mL pen injector 1.5 mg SUBCUT Q7D silver sulfadiazine 1 % cream 1 applic topical BID 14 Days Qty: 50 2RF Rx Instructions: apply a 1.5 mm thickness mupirocin 2 % ointment 1 applic topical BID 14 Days Qty: 22 2RF (DME) right cockup splint See Rx Instructions .Route .MEDSUPPLY Qty: 1 0RF Rx Instructions: As directed (DME) left cockup splint See Rx Instructions .Route .MEDSUPPLY Qty: 1 0RF Rx Instructions: As directed celecoxib [Celebrex] 100 mg capsule 100 mg PO BID Qty: 180 0RF diclofenac sodium [Voltaren Arthritis Pain] 1 % gel 2 g topical QID Qty: 100 0RF Rx Instructions: apply to single elbow, wrist or hand; for hand includes palm/fingers/back of hand atorvastatin 40 mg Tablet 40 mg PO DAILY metformin 500 mg Tablet 500 mg PO BID oxybutynin chloride 10 mg Tablet Extended Release 24hr 10 mg PO DAILY glyburide 2.5 mg Tablet 2.5 mg PO DAILY ferrous sulfate [Iron (ferrous sulfate)] 325 mg (65 mg iron) Tablet 325 mg PO DAILY lisinopril 30 mg Tablet 30 mg PO DAILY atenolol 50 mg Tablet See Rx Instructions .ROUTE .COMPLEX Rx Instructions: 50 MG PO IN THE MORNING AND 25 MG PO IN EVENING ondansetron 4 mg film 4 mg PO DAILY PRN (Reason: nausea and vomiting) Qty: 10 0RF Discharge Orders: Discharge ED (Routine); Ordered 04/26/24 Ordered By: Blanca Gabriel Referrals: Vivek Reyez FNP [Primary Care Provider] - 1-3 days Patient Instructions: Abdominal Pain (ED), Diabetic Hyperglycemia (ED) Activity Restrictions/Additional Instructions: Thank you for choosing [facility] for your healthcare needs today. Please realize this is an emergency room and that we are providing you with a medical screening exam and this may not be complete and all inclusive of all the testing and or work up that you may need to determine your ailment or severity of your illness. You have been screened and evaluated and felt safe for discharge. Health conditions do change or evolve sometimes and as such it is important that you follow up with your Primary Doctor to be re checked, 3-5 days is a general good time frame for follow up. You are always welcome to return to the ED for re assessment if your symptoms are worsening or you have new concerns Coding Level of Care Code ED Bell Spinner Sousaphones for Aldair Benito
[2024-04-26 10:18] LABS: Basophils % 0.6 %; Eosinophils # 0.3 10^3/uL (0.0-0.8); Eosinophils % 4.5 %; Hematocrit 41.5 % (36-47); Lymphocytes # 1.9 10^3/uL (0.8-4.8); Lymphocytes % 30.6 %; Mean Corpuscular HGB Conc 31.8 g/dL (30-55); Mean Corpuscular Hemoglobin 26.9 pg (27-33); Mean Corpuscular Volume 84.7 fl (85-98); Monocytes # 0.5 10^3/uL (0.2-0.9); Monocytes % 7.8 %; Neutrophils # 3.51 10^3/uL (1.8-7.7); Neutrophils % 56.2 %; Nucleated Red Blood Cells % 0 %; Platelet Count 273 10^3/cmm (157-399); White Blood Count 6.25 10^3/uL (3.29-11.43)
[2024-04-26 10:21] LABS: Add Urine Culture? No; Bacteria Urine TRACE /hpf; Bilirubin Urine Neg (Negative); Blood Urine Neg (Negative); Glucose Urine UA 4+ (Normal); Ketones Urine Negative (Negative); Leukocyte Esterase Urine Negative (Negative); Nitrate Urine Negative (Negative); Protein Urine Trace (Negative); Urine Appearance Clear (CLEAR); Urine Color Yellow (Yellow); Urobilinogen Urine Norm (Negative); WBC Urine 0-4 /hpf (0-5); pH Urine 5 (5-7)
[2024-04-26] MEDS: iohexol 350 mg/mL 500 mL Btl (per mL) IV (10:37)
[2024-04-26 10:40] LABS: Alanine Aminotransferase 44 U/L (0-33); Albumin Level 4.7 g/dL (3.5-5.2); Alkaline Phosphatase 52 U/L (35-105); Anion Gap 21.2 (5-19); Aspartate Amino Transferase 45 U/L (0-32); Blood Urea Nitrogen 26 mg/dL (6-20); C Reactive Protein 4.7 mg/L (0.0-4.9); Calcium 10.9 mg/dL (8.5-10.5); Carbon Dioxide 24 mmol/L (22-29); Chloride 95 mmol/L (98-107); Creatinine Clr Calc Pharmacy 84.4469; Globulin 3.6 g/dL (1.3-4.6); Glomerular Filtration Rate 73.9 mL/min (90-130); Glucose 277 mg/dL (65-115); Osmolality Calculated 297 mOsm/kg (285-295); Potassium 4.2 mmol/L (3.5-5.1); Sodium 136 mmol/L (136-145); Total Bilirubin 0.6 mg/dL (0.15-1.2); Total Protein 8.3 g/dL (6.6-8.7)
[2024-04-26 11:00] VITALS: BP 131/57; PULSE 89; O2SAT 94
[2024-04-26 11:22] VITALS: BP 156/76; PULSE 90; O2SAT 93
[2024-04-26] MEDS: ketorolac 30 mg/mL INJ 15 MG IVP (11:26)
[2024-04-26] MEDS: sodium chloride 0.9% 1,000 ML 999 ML IV (11:26)
[2024-04-26 12:00] VITALS: BP 126/70; PULSE 81; O2SAT 93
== END 2024-04-26 12:54 | disposition home or self-care (01) ==
PROVIDERS: Emergency Provider Emergency Medicine; PCP Nurse Practitioner
DX: R10.9 Unspecified abdominal pain (principal); E11.65 Type 2 diabetes mellitus with hyperglycemia; Z79.85 Long-term (current) use of injectable non-insulin antidiabetic drugs; Z79.84 Long term (current) use of oral hypoglycemic drugs; I10 Essential (primary) hypertension; Z87.891 Personal history of nicotine dependence
CPT/HCPCS: 74177; 80053; 81001; 85025; 86140; 96361; 96374; 99285; J1885; J7030; Q9967

== ENCOUNTER 2024-07-10 14:33 | Emergency (ER) | payer MEDICAID, SELFPAY ==
[2024-07-10 14:49] VITALS: BP 136/72; PULSE 77; RESP 20; TEMP 36.8; O2SAT 95; BMI 33.1
--- NOTE | 2024-07-10 16:27 | CTR_ITS ---
PROCEDURE INFORMATION: Exam: CT Abdomen And Pelvis With Contrast Exam date and time: 07/10/2024 6:36 PM Age: 58 years old Clinical indication: Abdominal pain; Prior surgery; Surgery date: 6+ months; Surgery type: Tubal; Patient HX: Lower abd tenderness with hematic diarrhea. ; Additional info: Bloody diarrhea, abd tenderness TECHNIQUE: Imaging protocol: Computed tomography of the abdomen and pelvis with contrast. Radiation optimization: All CT scans at this facility use at least one of these dose optimization techniques: automated exposure control; mA and/or kV adjustment per patient size (includes targeted exams where dose is matched to clinical indication); or iterative reconstruction. Contrast material: OMNI 350; Contrast volume: 100 ml; Contrast route: INTRAVENOUS (IV); COMPARISON: 1. CT abdomen pelvis w con* [id number] 04/26/2024 10:[address] abdomen/pelvis dated 10/15/2019. RADIATION DOSE METRICS: Total DLP (mGy-cm): 755.28 FINDINGS: Lungs: Bibasilar atelectasis. Calcified granuloma in the left lower lobe. Liver: The liver is unremarkable. Gallbladder and biliary ducts: Suggestion of gallbladder fundal adenomyomatosis, unchanged. No biliary dilation. Pancreas: The pancreas is unremarkable. Spleen: The spleen demonstrates punctate calcifications, consistent with remote granulomatous organism exposure. Adrenal glands: Stable indeterminate 7 mm left adrenal nodule. Stable 8 mm right adrenal myelolipoma. Kidneys and ureters: Bilateral simple renal cysts are present, as well as other subcentimeter hypodensities which are too small to characterize. Prominent left renal column of Josh, unchanged. Left renal upper pole atrophy. Stomach and bowel: There is no bowel wall thickening. No bowel obstruction. Appendix: A normal appendix is identified. Intraperitoneal space: No significant peritoneal free fluid. No free peritoneal air. Vasculature: The vasculature demonstrates diffuse mild atherosclerotic calcification. No aneurysm. Lymph nodes: No enlarged lymph nodes by size criteria. Urinary bladder: There is diffuse bladder wall thickening. Reproductive: Uterus is unremarkable. No suspicious adnexal lesion seen. Bones/joints: The spine demonstrates moderate degenerative changes at multiple levels. Soft tissues: Mild midline soft tissue stranding. CT/CT abdomen pelvis w con* [id number] IMPRESSION: 1. Diffuse bladder wall thickening, which is suggestive of cystitis in the appropriate clinical setting. 2. Otherwise, no acute findings. 3. Stable indeterminate 7 mm left adrenal nodule. This can be further evaluated with adrenal protocol CT or MRI when clinically appropriate if not previously characterized. 4. Stable 8 mm right adrenal myelolipoma. COMMENTS: Consistent with the [employer] [employer]'s Incidental Findings Committee white paper (J Am Pedro Luis Radiol 2018): Any incidental renal lesion less than 1 cm or classified as too small to characterize, or any incidental cystic renal lesion characterized as simple-appearing, is likely benign. No follow-up imaging is recommended for these lesions per consensus recommendations based on imaging criteria.
[2024-07-10 17:28] VITALS: BP 153/70; PULSE 90; O2SAT 93
--- NOTE | 2024-07-10 17:55 | W.ED.GIBLEED ---
Documented by User: Obdulio Maya DO 07/13/24 06:44 HPI - GI Bleed General: Chief complaint: GI Bleed Stated complaint: bloody stool Time Seen by Provider: 07/10/24 17:19 History of Present Illness: 58-year-old female who presents to the emergency room complaining of bloody stools she has a history of hemorrhoid she had 1 large bloody bowel movement today she has had bright red blood per rectum has been multiple years since it has happened in the past. She is on some NSAIDs. She is not on any anticoagulants or antiplatelet medications. She is diabetic. She denies chest pain or shortness of breath she does have little bit of a headache she reports she has had upper respiratory symptoms last few days prior to the episode of bright red blood per rectum. Associated symptoms: Reports abdominal pain and nausea; Denies chills, fever(s) or rash Related Data Home Medications Medication Instructions Recorded Confirmed atenolol 50 mg tablet See Rx Instructions .Route .COMPLEX 11/16/21 04/13/24 atorvastatin 40 mg tablet 40 mg PO DAILY 11/16/21 04/13/24 ferrous sulfate 325 mg (65 mg 325 mg PO DAILY 11/16/21 04/13/24 iron) tablet (Iron (ferrous sulfate)) glyburide 2.5 mg tablet 2.5 mg PO DAILY 11/16/21 04/13/24 lisinopril 30 mg tablet 30 mg PO DAILY 11/16/21 04/13/24 metformin 500 mg tablet 500 mg PO BID 11/16/21 04/13/24 oxybutynin chloride 10 mg 10 mg PO DAILY 11/16/21 04/13/24 tablet,extended release 24 hr dulaglutide 1.5 mg/0.5 mL 1.5 mg SUBCUT Q7D 10/16/22 04/13/24 [facility] fenofibrate 160 mg tablet 160 mg PO DAILY 10/16/22 04/13/24 furosemide 20 mg tablet 40 mg PO DAILY 10/16/22 04/13/24 potassium chloride 10 mEq 20 meq PO DAILY 10/16/22 04/13/24 tablet,extended release Previous Rx's Medication Instructions Recorded ondansetron 4 mg oral soluble film 4 mg PO DAILY PRN nausea and 02/15/23 vomiting #10 ea mupirocin 2 % topical ointment 1 applic topical BID 2 weeks #22 04/16/23 grams silver sulfadiazine 1 % topical 1 applic topical BID 2 weeks #50 05/09/23 cream grams celecoxib 100 mg capsule (Celebrex) 100 mg PO BID #180 caps 04/13/24 diclofenac sodium 1 % topical gel 2 g topical QID #100 grams 04/13/24 (Voltaren Arthritis Pain) left cockup splint #1 ea 04/13/24 right cockup splint #1 ea 04/13/24 diclofenac sodium 50 mg 50 mg PO Q12H #20 tabs 04/26/24 tablet,delayed release hydrocortisone 2.5 % topical 1 applic topical BID PRN External 07/10/24 ointment hemorrhoids #28.35 grams Allergies Allergy/AdvReac Type Severity Reaction Status Date / Time levofloxacin [From Levaquin] Allergy ALGY-Rash Verified 07/10/24 14:56 Review of Systems Const: Denies: fever(s) or chills Card: Denies: chest pain Resp: Denies: dyspnea GI: Reports: abdominal pain, nausea and hematochezia : Denies: dysuria, urinary frequency or urinary urgency Musc: Denies: neck pain or back pain Skin/Breast: Denies: rash PFSH ED PFSH: Medical History Arthritis of neck Bleeding hemorrhoids Abnormal gait Binocular vision disorder with diplopia Headache Pulmonary disease Diabetes Hypertension Asthma Surgical History H/O tubal ligation Family History Sister Cancer Social History Smoking and tobacco/nicotine status: former use of tobacco/nicotine Physical Exam Const: GENERAL APPEARANCE: cooperative ORIENTATION/CONSCIOUSNESS: Yes awake, Yes oriented to person, Yes oriented to place and Yes oriented to time HENMT: COMMON NORMALS: normocephalic, atraumatic and hearing grossly normal bilaterally HEAD & SCALP: normocephalic and atraumatic Resp: COMMON NORMALS: normal respiratory effort, No retractions, No use of accessory muscles and clear to auscultation bilaterally AUSCULTATION: clear to auscultation bilaterally Cardio: COMMON NORMALS: regular rate, regular rhythm and No murmurs present (Cardio) RATE: regular rate RHYTHM: regular rhythm GI: COMMON NORMALS: Soft to palpation and No hepatosplenomegaly present AUSCULTATION: Yes normoactive bowel sounds PALPATION: Yes Soft to palpation, No Tenderness to palpation present (GI), No Guarding due to palpation present (GI) and Yes No hepatosplenomegaly present Extremity: COMMON NORMALS: normal to inspection, capillary refill normal, no clubbing, cyanosis or edema, no calf tenderness and no pedal edema Neuro: SENSORIUM/ORIENTATION: Yes oriented to person, Yes oriented to place and Yes oriented to time Skin: COMMON NORMALS: no rashes or lesions noted GENERAL SKIN EXAM: no rashes or lesions noted Course Vital Signs: Vital signs: Vital Signs Temperature 98.2 F 07/10/24 21:13 Pulse Rate 73 07/10/24 21:13 Respiratory Rate 17 07/10/24 21:13 Blood Pressure 97/60 07/10/24 21:13 Pulse Oximetry 93 07/10/24 21:13 Oxygen Delivery Me thod Room Air 07/10/24 19:00 MDM - GI Bleed Medical Decision Making Care signed out to Dr. Orellana at change of shift. See final notes for diagnosis and disposition. Lab Data 07/10/24 17:53 07/10/24 17:53 Radiology Impressions Abdomen/Pelvis CT 07/10/24 16:27 IMPRESSION: 1. Diffuse bladder wall thickening, which is suggestive of cystitis in the appropriate clinical setting. 2. Otherwise, no acute findings. 3. Stable indeterminate 7 mm left adrenal nodule. This can be further evaluated with adrenal protocol CT or MRI when clinically appropriate if not previously characterized. 4. Stable 8 mm right adrenal myelolipoma. COMMENTS: Consistent with the [place] [employer]'s Incidental Findings Committee white paper (J Am Pedro Luis Radiol 2018): Any incidental renal lesion less than 1 cm or classified as too small to characterize, or any incidental cystic renal lesion characterized as simple-appearing, is likely benign. No follow-up imaging is recommended for these lesions per consensus recommendations based on imaging criteria. Laboratory Results WBC 9.17 10^3/uL (3.29-11.43) 07/10/24 17:53 RBC 5.04 10^6/uL (3.85-5.65) 07/10/24 17:53 Hgb 13.10 g/dL (11.27-16.99) 07/10/24 17:53 Hct 42.2 % (36-47) 07/10/24 17:53 MCV 83.7 fl (85-98) L 07/10/24 17:53 MCH 26.0 pg (27-33) L 07/10/24 17:53 MCHC 31.0 g/dL (30-55) 07/10/24 17:53 RDW 15.5 % (12.1-15.1) H 07/10/24 17:53 Plt Count 263 10^3/cmm (157-399) 07/10/24 17:53 MPV 10.8 fL (7.4-10.4) H 07/10/24 17:53 Neut % (Auto) 59.0 % 07/10/24 17:53 Lymph % (Auto) 16.6 % 07/10/24 17:53 [place] % (Auto) 7.9 % 07/10/24 17:53 Eos % (Auto) 15.9 % 07/10/24 17:53 Baso % (Auto) 0.4 % 07/10/24 17:53 Neut # (Auto) 5.41 10^3/uL (1.8-7.7) 07/10/24 17:53 Lymph # (Auto) 1.5 10^3/uL (0.8-4.8) 07/10/24 17:53 [place] # (Auto) 0.7 10^3/uL (0.2-0.9) 07/10/24 17:53 Eos # (Auto) 1.5 10^3/uL (0.0-0.8) H 07/10/24 17:53 Baso # (Auto) 0.0 10^3/uL (0.0-0.1) 07/10/24 17:53 Nucleated RBC % (auto) 0 % 07/10/24 17:53 Nucleated RBCs # 0.0 /100WBC 07/10/24 17:53 PT 13.60 SECONDS (12.1-14.9) 07/10/24 17:53 INR 1.01 (0.8-1.2) 07/10/24 17:53 APTT 27.7 SECONDS (23.9-36.7) 07/10/24 17:53 Sodium 139 mmol/L (136-145) 07/10/24 17:53 Potassium 4.4 mmol/L (3.5-5.1) 07/10/24 17:53 Chloride 102 mmol/L (98-107) 07/10/24 17:53 Carbon Dioxide 27 mmol/L (22-29) 07/10/24 17:53 Anion Gap 14.4 (5-19) 07/10/24 17:53 BUN 23 mg/dL (6-20) H 07/10/24 17:53 Creatinine 0.8 mg/dL (0.5-0.9) 07/10/24 17:53 GFR Calculation 73.9 mL/min (90-130) L 07/10/24 17:53 Glucose 73 mg/dL (65-115) 07/10/24 17:53 Calculated Osmolality 290 mOsm/kg (285-295) 07/10/24 17:53 Calcium 9.7 mg/dL (8.5-10.5) 07/10/24 17:53 Total Bilirubin 0.4 mg/dL (0.15-1.2) 07/10/24 17:53 AST 45 U/L (0-32) H 07/10/24 17:53 ALT 32 U/L (0-33) 07/10/24 17:53 Alkaline Phosphatase 47 U/L (35-105) 07/10/24 17:53 Total Protein 8.1 g/dL (6.6-8.7) 07/10/24 17:53 Albumin 4.0 g/dL (3.5-5.2) 07/10/24 17:53 Globulin 4.1 g/dL (1.3-4.6) 07/10/24 17:53 Urine Color Yellow (Yellow) 07/10/24 18:05 Urine Appearance Clear (CLEAR) 07/10/24 18:05 Urine pH 5.5 (5-7) 07/10/24 18:05 Ur Specific [place] 1.028 (1.005-1.030) 07/10/24 18:05 Urine Protein Negative (Negative) 07/10/24 18:05 Urine Glucose (UA) 2+ (Normal) H 07/10/24 18:05 Urine Ketones Negative (Negative) 07/10/24 18:05 Urine Blood Negative (Negative) 07/10/24 18:05 Urine Nitrate Negative (Negative) 07/10/24 18:05 Urine Bilirubin Negative (Negative) 07/10/24 18:05 Urine Urobilinogen 1.0 mg/dL (Negative) 07/10/24 18:05 Ur Leukocyte Esterase Negative (Negative) 07/10/24 18:05 Urine RBC 0-2 /hpf (0-2) 07/10/24 18:05 Urine WBC 11-20 /hpf (0-5) H 07/10/24 18:05 Ur Squamous Epith Cells 6-10 /hpf (0-5) 07/10/24 18:05 Amorphous Sediment Not Reportable 07/10/24 18:05 Urine Bacteria 1+ /hpf (NONE) H 07/10/24 18:05 Hyaline Casts 1.21 /lpf 07/10/24 18:05 Discharge Plan Discharge Patient Disposition: Home Clinical Impression: Rectal bleed, Bleeding external hemorrhoids Condition: Stable Prescriptions: New hydrocortisone 2.5 % ointment 1 applic topical BID PRN (Reason: External hemorrhoids) Qty: 28.35 0RF No Action fenofibrate 160 mg tablet 160 mg PO DAILY furosemide 20 mg tablet 40 mg PO DAILY potassium chloride 10 mEq tablet extended release 20 meq PO DAILY Trulicity 1.5 mg/0.5 mL pen injector 1.5 mg SUBCUT Q7D silver sulfadiazine 1 % cream 1 applic topical BID 14 Days Qty: 50 2RF Rx Instructions: apply a 1.5 mm thickness mupirocin 2 % ointment 1 applic topical BID 14 Days Qty: 22 2RF (DME) right cockup splint See Rx Instructions .Route .MEDSUPPLY Qty: 1 0RF Rx Instructions: As directed (DME) left cockup splint See Rx Instructions .Route .MEDSUPPLY Qty: 1 0RF Rx Instructions: As directed celecoxib [Celebrex] 100 mg capsule 100 mg PO BID Qty: 180 0RF diclofenac sodium [Voltaren Arthritis Pain] 1 % gel 2 g topical QID Qty: 100 0RF Rx Instructions: apply to single elbow, wrist or hand; for hand includes palm/fingers/back of hand atorvastatin 40 mg Tablet 40 mg PO DAILY metformin 500 mg Tablet 500 mg PO BID oxybutynin chloride 10 mg Tablet Extended Release 24hr 10 mg PO DAILY glyburide 2.5 mg Tablet 2.5 mg PO DAILY ferrous sulfate [Iron (ferrous sulfate)] 325 mg (65 mg iron) Tablet 325 mg PO DAILY lisinopril 30 mg Tablet 30 mg PO DAILY atenolol 50 mg Tablet See Rx Instructions .ROUTE .COMPLEX Rx Instructions: 50 MG PO IN THE MORNING AND 25 MG PO IN EVENING ondansetron 4 mg film 4 mg PO DAILY PRN (Reason: nausea and vomiting) Qty: 10 0RF diclofenac sodium 50 mg tablet,delayed release (DR/EC) 50 mg PO Q12H Qty: 20 0RF Discharge Orders: Discharge ED (Routine); Ordered 07/10/24 Ordered By: Bobby Orellana Referrals: Vivek Reyez [employer] [Primary Care Provider] - 1 week Patient Instructions: Hemorrhoids (DC), Rectal Bleeding (ED) Activity Restrictions/Additional Instructions: Your evaluation in the ER that included physical exam, blood work, urinalysis, CT scan of the abdomen pelvis essentially unremarkable other than irritated external hemorrhoids. These may be the cause of your bleeding. You have been prescribed some hydrocortisone ointment that will help reduce the inflammation and irritation of these. Please follow-up with your family practitioner within next 7 days for further evaluation and treatment. If your bleeding worsens lightheaded dizzy felt you are like to pass out please feel free to return to the ER. Coding Level of Care Code ED Recorder [employer] for Chg Fwd Documented by User: Bobby Orellana DO 07/10/24 20:49 HPI - GI Bleed General: Chief complaint: GI Bleed Stated complaint: bloody stool Time Seen by Provider: 07/10/24 17:19 Related Data Home Medications Medication Instructions Recorded Confirmed atenolol 50 mg tablet See Rx Instructions .Route .COMPLEX 11/16/21 04/13/24 atorvastatin 40 mg tablet 40 mg PO DAILY 11/16/21 04/13/24 ferrous sulfate 325 mg (65 mg 325 mg PO DAILY 11/16/21 04/13/24 iron) tablet (Iron (ferrous sulfate)) glyburide 2.5 mg tablet 2.5 mg PO DAILY 11/16/21 04/13/24 lisinopril 30 mg tablet 30 mg PO DAILY 11/16/21 04/13/24 metformin 500 mg tablet 500 mg PO BID 11/16/21 04/13/24 oxybutynin chloride 10 mg 10 mg PO DAILY 11/16/21 04/13/24 tablet,extended release 24 hr dulaglutide 1.5 mg/0.5 mL 1.5 mg SUBCUT Q7D 10/16/22 04/13/24 [facility]ofibrate 160 mg tablet 160 mg PO DAILY 10/16/22 04/13/24 furosemide 20 mg tablet 40 mg PO DAILY 10/16/22 04/13/24 potassium chloride 10 mEq 20 meq PO DAILY 10/16/22 04/13/24 tablet,extended release Previous Rx's Medication Instructions Recorded ondansetron 4 mg oral soluble film 4 mg PO DAILY PRN nausea and 02/15/23 vomiting #10 ea mupirocin 2 % topical ointment 1 applic topical BID 2 weeks #22 04/16/23 grams silver sulfadiazine 1 % topical 1 applic topical BID 2 weeks #50 05/09/23 cream grams celecoxib 100 mg capsule (Celebrex) 100 mg PO BID #180 caps 04/13/24 diclofenac sodium 1 % topical gel 2 g topical QID #100 grams 04/13/24 (Voltaren Arthritis Pain) left cockup splint #1 ea 04/13/24 right cockup splint #1 ea 04/13/24 diclofenac sodium 50 mg 50 mg PO Q12H #20 tabs 04/26/24 tablet,delayed release hydrocortisone 2.5 % topical 1 applic topical BID PRN External 07/10/24 ointment hemorrhoids #28.35 grams Allergies Allergy/AdvReac Type Severity Reaction Status Date / Time levofloxacin [From Levaquin] Allergy ALGY-Rash Verified 07/10/24 14:56 PFSH ED PFSH: Medical History Arthritis of neck Bleeding hemorrhoids Abnormal gait Binocular vision disorder with diplopia Headache Pulmonary disease Diabetes Hypertension Asthma Surgical History H/O tubal ligation Family History Sister Cancer Social History Smoking and tobacco/nicotine status: former use of tobacco/nicotine Course Vital Signs: Vital signs: Vital Signs Temperature 98.2 F 07/10/24 21:13 Pulse Rate 73 07/10/24 21:13 Respiratory Rate 17 07/10/24 21:13 Blood Pressure 97/60 07/10/24 21:13 Pulse Oximetry 93 07/10/24 21:13 Oxygen Delivery Me thod Room Air 07/10/24 19:00 MDM - GI Bleed Medical Decision Making Care signed out to Dr. Orellana at change of shift. See final notes for diagnosis and disposition. Care transitioned over myself at shift change, lab work was reviewed as well as CT scan, all of which was essentially unremarkable. External rectal exam noted irritated friable external hemorrhoids. These results was discussed with the patient. Patient be placed on some hydrocortisone ointment discharge from the ER and told to follow back up with her PCP. Medical Records I reviewed the patient's medical records. Lab Data 07/10/24 17:53 07/10/24 17:53 Radiology Impressions Abdomen/Pelvis CT 07/10/24 16:27 IMPRESSION: 1. Diffuse bladder wall thickening, which is suggestive of cystitis in the appropriate clinical setting. 2. Otherwise, no acute findings. 3. Stable indeterminate 7 mm left adrenal nodule. This can be further evaluated with adrenal protocol CT or MRI when clinically appropriate if not previously characterized. 4. Stable 8 mm right adrenal myelolipoma. COMMENTS: Consistent with the [place] [employer]'s Incidental Findings Committee white paper (J Am Pedro Luis Radiol 2018): Any incidental renal lesion less than 1 cm or classified as too small to characterize, or any incidental cystic renal lesion characterized as simple-appearing, is likely benign. No follow-up imaging is recommended for these lesions per consensus recommendations based on imaging criteria. Laboratory Results WBC 9.17 10^3/uL (3.29-11.43) 07/10/24 17:53 RBC 5.04 10^6/uL (3.85-5.65) 07/10/24 17:53 Hgb 13.10 g/dL (11.27-16.99) 07/10/24 17:53 Hct 42.2 % (36-47) 07/10/24 17:53 MCV 83.7 fl (85-98) L 07/10/24 17:53 MCH 26.0 pg (27-33) L 07/10/24 17:53 MCHC 31.0 g/dL (30-55) 07/10/24 17:53 RDW 15.5 % (12.1-15.1) H 07/10/24 17:53 Plt Count 263 10^3/cmm (157-399) 07/10/24 17:53 MPV 10.8 fL (7.4-10.4) H 07/10/24 17:53 Neut % (Auto) 59.0 % 07/10/24 17:53 Lymph % (Auto) 16.6 % 07/10/24 17:53 [place] % (Auto) 7.9 % 07/10/24 17:53 Eos % (Auto) 15.9 % 07/10/24 17:53 Baso % (Auto) 0.4 % 07/10/24 17:53 Neut # (Auto) 5.41 10^3/uL (1.8-7.7) 07/10/24 17:53 Lymph # (Auto) 1.5 10^3/uL (0.8-4.8) 07/10/24 17:53 [place] # (Auto) 0.7 10^3/uL (0.2-0.9) 07/10/24 17:53 Eos # (Auto) 1.5 10^3/uL (0.0-0.8) H 07/10/24 17:53 Baso # (Auto) 0.0 10^3/uL (0.0-0.1) 07/10/24 17:53 Nucleated RBC % (auto) 0 % 07/10/24 17:53 Nucleated RBCs # 0.0 /100WBC 07/10/24 17:53 PT 13.60 SECONDS (12.1-14.9) 07/10/24 17:53 INR 1.01 (0.8-1.2) 07/10/24 17:53 APTT 27.7 SECONDS (23.9-36.7) 07/10/24 17:53 Sodium 139 mmol/L (136-145) 07/10/24 17:53 Potassium 4.4 mmol/L (3.5-5.1) 07/10/24 17:53 Chloride 102 mmol/L (98-107) 07/10/24 17:53 Carbon Dioxide 27 mmol/L (22-29) 07/10/24 17:53 Anion Gap 14.4 (5-19) 07/10/24 17:53 BUN 23 mg/dL (6-20) H 07/10/24 17:53 Creatinine 0.8 mg/dL (0.5-0.9) 07/10/24 17:53 GFR Calculation 73.9 mL/min (90-130) L 07/10/24 17:53 Glucose 73 mg/dL (65-115) 07/10/24 17:53 Calculated Osmolality 290 mOsm/kg (285-295) 07/10/24 17:53 Calcium 9.7 mg/dL (8.5-10.5) 07/10/24 17:53 Total Bilirubin 0.4 mg/dL (0.15-1.2) 07/10/24 17:53 AST 45 U/L (0-32) H 07/10/24 17:53 ALT 32 U/L (0-33) 07/10/24 17:53 Alkaline Phosphatase 47 U/L (35-105) 07/10/24 17:53 Total Protein 8.1 g/dL (6.6-8.7) 07/10/24 17:53 Albumin 4.0 g/dL (3.5-5.2) 07/10/24 17:53 Globulin 4.1 g/dL (1.3-4.6) 07/10/24 17:53 Urine Color Yellow (Yellow) 07/10/24 18:05 Urine Appearance Clear (CLEAR) 07/10/24 18:05 Urine pH 5.5 (5-7) 07/10/24 18:05 Ur Specific [place] 1.028 (1.005-1.030) 07/10/24 18:05 Urine Protein Negative (Negative) 07/10/24 18:05 Urine Glucose (UA) 2+ (Normal) H 07/10/24 18:05 Urine Ketones Negative (Negative) 07/10/24 18:05 Urine Blood Negative (Negative) 07/10/24 18:05 Urine Nitrate Negative (Negative) 07/10/24 18:05 Urine Bilirubin Negative (Negative) 07/10/24 18:05 Urine Urobilinogen 1.0 mg/dL (Negative) 07/10/24 18:05 Ur Leukocyte Esterase Negative (Negative) 07/10/24 18:05 Urine RBC 0-2 /hpf (0-2) 07/10/24 18:05 Urine WBC 11-20 /hpf (0-5) H 07/10/24 18:05 Ur Squamous Epith Cells 6-10 /hpf (0-5) 07/10/24 18:05 Amorphous Sediment Not Reportable 07/10/24 18:05 Urine Bacteria 1+ /hpf (NONE) H 07/10/24 18:05 Hyaline Casts 1.21 /lpf 07/10/24 18:05 All radiology interpretation(s) finalized by discharge Discharge Plan Discharge Patient Disposition: Home Clinical Impression: Rectal bleed, Bleeding external hemorrhoids Condition: Stable Prescriptions: New hydrocortisone 2.5 % ointment 1 applic topical BID PRN (Reason: External hemorrhoids) Qty: 28.35 0RF No Action fenofibrate 160 mg tablet 160 mg PO DAILY furosemide 20 mg tablet 40 mg PO DAILY potassium chloride 10 mEq tablet extended release 20 meq PO DAILY Trulicity 1.5 mg/0.5 mL pen injector 1.5 mg SUBCUT Q7D silver sulfadiazine 1 % cream 1 applic topical BID 14 Days Qty: 50 2RF Rx Instructions: apply a 1.5 mm thickness mupirocin 2 % ointment 1 applic topical BID 14 Days Qty: 22 2RF (DME) right cockup splint See Rx Instructions .Route .MEDSUPPLY Qty: 1 0RF Rx Instructions: As directed (DME) left cockup splint See Rx Instructions .Route .MEDSUPPLY Qty: 1 0RF Rx Instructions: As directed celecoxib [Celebrex] 100 mg capsule 100 mg PO BID Qty: 180 0RF diclofenac sodium [Voltaren Arthritis Pain] 1 % gel 2 g topical QID Qty: 100 0RF Rx Instructions: apply to single elbow, wrist or hand; for hand includes palm/fingers/back of hand atorvastatin 40 mg Tablet 40 mg PO DAILY metformin 500 mg Tablet 500 mg PO BID oxybutynin chloride 10 mg Tablet Extended Release 24hr 10 mg PO DAILY glyburide 2.5 mg Tablet 2.5 mg PO DAILY ferrous sulfate [Iron (ferrous sulfate)] 325 mg (65 mg iron) Tablet 325 mg PO DAILY lisinopril 30 mg Tablet 30 mg PO DAILY atenolol 50 mg Tablet See Rx Instructions .ROUTE .COMPLEX Rx Instructions: 50 MG PO IN THE MORNING AND 25 MG PO IN EVENING ondansetron 4 mg film 4 mg PO DAILY PRN (Reason: nausea and vomiting) Qty: 10 0RF diclofenac sodium 50 mg tablet,delayed release (DR/EC) 50 mg PO Q12H Qty: 20 0RF Discharge Orders: Discharge ED (Routine); Ordered 07/10/24 Ordered By: Bobby Orellana Referrals: Vivek Reyez [employer] [Primary Care Provider] - 1 week Patient Instructions: Hemorrhoids (DC), Rectal Bleeding (ED) Activity Restrictions/Additional Instructions: Your evaluation in the ER that included physical exam, blood work, urinalysis, CT scan of the abdomen pelvis essentially unremarkable other than irritated external hemorrhoids. These may be the cause of your bleeding. You have been prescribed some hydrocortisone ointment that will help reduce the inflammation and irritation of these. Please follow-up with your family practitioner within next 7 days for further evaluation and treatment. If your bleeding worsens lightheaded dizzy felt you are like to pass out please feel free to return to the ER. Coding Level of Care Code ED Recorder [employer] for Aldair Benito
[2024-07-10 18:00] LABS: Basophils % 0.4 %; Eosinophils # 1.5 10^3/uL (0.0-0.8); Eosinophils % 15.9 %; Hematocrit 42.2 % (36-47); Lymphocytes # 1.5 10^3/uL (0.8-4.8); Lymphocytes % 16.6 %; Mean Corpuscular Volume 83.7 fl (85-98); Mean Platelet Volume 10.8 fL (7.4-10.4); Monocytes # 0.7 10^3/uL (0.2-0.9); Monocytes % 7.9 %; Neutrophils # 5.41 10^3/uL (1.8-7.7); Nucleated Red Blood Cells % 0 %; Platelet Count 263 10^3/cmm (157-399); Red Blood Count 5.04 10^6/uL (3.85-5.65); Red Cell Distribution Width 15.5 % (12.1-15.1); White Blood Count 9.17 10^3/uL (3.29-11.43)
[2024-07-10 18:12] LABS: INR 1.01 (0.8-1.2)
[2024-07-10 18:13] LABS: Partial Thromboplastin Time 27.7 SECONDS (23.9-36.7)
[2024-07-10 18:17] LABS: Alkaline Phosphatase 47 U/L (35-105); Anion Gap 14.4 (5-19); Aspartate Amino Transferase 45 U/L (0-32); Blood Urea Nitrogen 23 mg/dL (6-20); Calcium 9.7 mg/dL (8.5-10.5); Carbon Dioxide 27 mmol/L (22-29); Chloride 102 mmol/L (98-107); Creatinine Clr Calc Pharmacy 91.1136; Globulin 4.1 g/dL (1.3-4.6); Glomerular Filtration Rate 73.9 mL/min (90-130); Glucose 73 mg/dL (65-115); Osmolality Calculated 290 mOsm/kg (285-295); Potassium 4.4 mmol/L (3.5-5.1); Sodium 139 mmol/L (136-145); Total Bilirubin 0.4 mg/dL (0.15-1.2); Total Protein 8.1 g/dL (6.6-8.7)
[2024-07-10 18:20] LABS: Bilirubin Urine Negative (Negative); Blood Urine Negative (Negative); Glucose Urine UA 2+ (Normal); Ketones Urine Negative (Negative); Leukocyte Esterase Urine Negative (Negative); Nitrate Urine Negative (Negative); Protein Urine Negative (Negative); Specific Gravity, Urine 1.028 (1.005-1.030); Urine Appearance Clear (CLEAR); Urine Color Yellow (Yellow); pH Urine 5.5 (5-7)
[2024-07-10 18:22] VITALS: BP 119/68; PULSE 82; O2SAT 97
[2024-07-10 18:24] LABS: Add Urine Microscopic? YES; Bacteria Urine 1+ /hpf; Hyaline Casts Urine 1.21 /lpf; RBC Urine 0-2 /hpf (0-2)
[2024-07-10 18:28] LABS: Alanine Aminotransferase 32 U/L (0-33)
[2024-07-10] MEDS: iohexol 350 mg/mL 500 mL Btl (per mL) IV (18:39)
[2024-07-10 19:00] VITALS: BP 130/52; PULSE 62; RESP 14; O2SAT 93
--- NOTE | 2024-07-10 19:53 | PC.NURSE ---
Rounded on pt. Pt resting quietly at this time. Call light in reach. Pt denies needs at this time.
[2024-07-10 21:13] VITALS: BP 97/60; PULSE 73; RESP 17; TEMP 36.8; O2SAT 93
== END 2024-07-10 21:19 | disposition home or self-care (01) ==
PROVIDERS: Emergency Medicine; Emergency Provider Family Medicine; PCP Nurse Practitioner
DX: K64.4 Residual hemorrhoidal skin tags (principal); K62.5 Hemorrhage of anus and rectum; Z79.85 Long-term (current) use of injectable non-insulin antidiabetic drugs; Z79.84 Long term (current) use of oral hypoglycemic drugs; Z87.891 Personal history of nicotine dependence; E11.9 Type 2 diabetes mellitus without complications; I10 Essential (primary) hypertension
CPT/HCPCS: 36415; 74177; 80053; 81001; 85025; 85610; 85730; 99285

== ENCOUNTER → 2024-11-24 13:44 | Outpatient (BNVA) | payer MEDICAID, SELFPAY | PROVIDERS: PCP Nurse Practitioner; Visit Provider Orthopaedic Surgery | DX: M54.2 Cervicalgia (principal) | CPT/HCPCS: 72050 ==

== ENCOUNTER 2024-11-28 06:30 | Outpatient (RCR) | payer MEDICAID, SELFPAY | END 2024-12-28 23:59 | disposition home or self-care (01) | LOC: GPT 06:30 | PROVIDERS: Visit Provider Orthopaedic Surgery | DX: M54.2 Cervicalgia (principal); G89.29 Other chronic pain | CPT/HCPCS: 97110; 97112; 97140; 97162 ==

== ENCOUNTER 2024-12-29 06:00 | Outpatient (RCR) | payer MEDICAID, SELFPAY | END 2025-01-27 23:59 | disposition home or self-care (01) | LOC: GPT 06:00 | PROVIDERS: Visit Provider Orthopaedic Surgery | DX: M54.2 Cervicalgia (principal); G89.29 Other chronic pain | CPT/HCPCS: 97110; 97112; 97140 ==

== ENCOUNTER 2025-01-24 21:30 | Emergency (ER) | payer MEDICAID, SELFPAY ==
[2025-01-24 21:45] VITALS: BP 167/71; PULSE 96; RESP 18; TEMP 36.7; O2SAT 95
--- NOTE | 2025-01-24 21:52 | ECG_ITS ---
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[id number] Requested By: Seth Rendon Order Number: [id number] Betty MD: GORDON NORMAN Measurements Intervals [place] Rate: 94 P: 52 OR: 181 QRS: -22 QRSD: 103 T: 22 QT: 354 QTc: 444 Interpretive Statements SINUS RHYTHM LOW QRS VOLTAGE IN PRECORDIAL LEADS [QRS DEFLECTION < 1.0 mV IN CHEST LEADS] MODERATE VOLTAGE CRITERIA FOR LVH, CONSIDER NORMAL VARIANT [MEETS CRITERIA IN ONE OF: R(aVL), S(V1), R(V5), R(V5/V6)+S(V1)] POSSIBLE ANTEROSEPTAL MYOCARDIAL INFARCTION , OF INDETERMINATE AGE [30 ms Q WAVE IN V1-V4] Compared to ECG 02/15/2023 22:14:43 No significant changes Electronically Signed On 01-25-2025 20:58:59 CDT by GORDON NORMAN [email or web address]
--- NOTE | 2025-01-24 22:54 | XRR_ITS ---
PROCEDURE INFORMATION: Exam: XR Chest Exam date and time: 01/24/2025 11:04 PM Age: 59 years old Clinical indication: Other: Weakness TECHNIQUE: Imaging protocol: Radiologic exam of the chest. Views: 1 view. COMPARISON: CR XR chest 1V portable [id number] 11/16/2021 1:39 PM FINDINGS: Lungs: Bibasilar [id number]-right atelectasis verse minimal infiltrate. Pleural spaces: Unremarkable. No pleural effusion. No pneumothorax. Heart/Mediastinum: Unremarkable. No cardiomegaly. Bones/joints: Unremarkable. XR/XR chest 1V portable [id number] IMPRESSION: Bibasilar mizt-norysqj-baug-right atelectasis verse minimal infiltrate.
[2025-01-24] MEDS: sodium chloride 0.9% 1,000 ML 999 ML IV (23:05)
[2025-01-24 23:11] VITALS: BP 158/82; PULSE 92; TEMP 36.9; O2SAT 94
[2025-01-24 23:11] LABS: Basophils # 0.1 10^3/uL (0.0-0.1); Basophils % 0.7 %; Eosinophils # 0.1 10^3/uL (0.0-0.8); Eosinophils % 1.3 %; Hematocrit 42.1 % (36-47); Lymphocytes # 2.7 10^3/uL (0.8-4.8); Lymphocytes % 26.7 %; Mean Corpuscular HGB Conc 31.4 g/dL (30-55); Mean Corpuscular Hemoglobin 24.9 pg (27-33); Mean Corpuscular Volume 79.3 fl (85-98); Monocytes # 0.6 10^3/uL (0.2-0.9); Monocytes % 5.5 %; Neutrophils # 6.62 10^3/uL (1.8-7.7); Neutrophils % 65.6 %; Nucleated Red Blood Cells % 0 %; Platelet Count 303 10^3/cmm (157-399); Red Blood Count 5.31 10^6/uL (3.85-5.65); Red Cell Distribution Width 15.5 % (12.1-15.1)
[2025-01-24 23:23] LABS: Bacteria Urine None Seen /hpf; Hyaline Casts Urine 0.81 /lpf; RBC Urine 0-2 /hpf (0-2); Squamous Epithelial Cell Urine 0-5 /hpf (0-5); WBC Urine 0-5 /hpf (0-5)
[2025-01-24 23:25] LABS: Amphetamines Screen Urine Negative (Negative); Barbiturates Screen Urine Negative (Negative); Benzodiazepines Screen Urine Negative (Negative); Cocaine Screen Urine Negative (Negative); Opiate Screen Urine Negative (Negative); PCP Screen Urine Negative (Negative); THC Screen Urine Negative (Negative)
[2025-01-24 23:30] LABS: Lactic Sepsis W/Reflex 3.3 mmol/L (0.5-2.2)
[2025-01-24 23:38] LABS: Alanine Aminotransferase 40 U/L (0-33); Albumin Level 4.3 g/dL (3.5-5.2); Alkaline Phosphatase 66 U/L (35-105); Blood Urea Nitrogen 13 mg/dL (6-20); C Reactive Protein 4.1 mg/L (0.0-4.9); Calcium 10.4 mg/dL (8.5-10.5); Carbon Dioxide 28 mmol/L (22-29); Chloride 99 mmol/L (98-107); Globulin 3.7 g/dL (1.3-4.6); Glomerular Filtration Rate 46.1 mL/min (90-130); Glucose 184 mg/dL (65-115); Osmolality Calculated 297 mOsm/kg (285-295); Sodium 141 mmol/L (136-145); Total Bilirubin 0.2 mg/dL (0.15-1.2)
[2025-01-24 23:39] LABS: Add Urine Microscopic? YES; Bilirubin Urine Negative (Negative); Blood Urine Trace (Negative); Glucose Urine UA 3+ (Normal); Ketones Urine Negative (Negative); Leukocyte Esterase Urine Negative (Negative); Nitrate Urine Negative (Negative); Protein Urine 1+ (Negative); Specific Gravity, Urine 1.018 (1.005-1.030); Urine Appearance Clear (CLEAR); Urine Color Yellow (Yellow); Urobilinogen Urine 0.2 mg/dL (Negative); pH Urine 7.5 (5-7)
[2025-01-24 23:40] LABS: Add Urine Culture? No
[2025-01-24 23:43] LABS: Anion Gap 17.3 (5-19); Aspartate Amino Transferase 44 U/L (0-32); Potassium 3.3 mmol/L (3.5-5.1)
--- NOTE | 2025-01-25 00:28 | W.ED.WEAKNES ---
HPI - Weakness General: Chief complaint: Weakness Stated complaint: high blood sugar Time Seen by Provider: 01/24/25 22:53 History of Present Illness: 59-year-old female with a history of insulin-dependent diabetes. She notes that her sugars been high and then low over the past few days. She has been ill, generally weak, and not feeling well. She has been quite nauseated. No vomiting. No diarrhea. She denies cough or sputum production. [facility] ED PFSH: Medical History Arthritis of neck Bleeding hemorrhoids Abnormal gait Binocular vision disorder with diplopia Headache Pulmonary disease Diabetes Hypertension Asthma Surgical History H/O tubal ligation Family History Sister Cancer Social History Smoking and tobacco/nicotine status: former use of tobacco/nicotine Physical Exam Const: COMMON NORMALS: no acute distress GENERAL APPEARANCE: cooperative, ill appearing (Mildly) and frail appearing (Very mildly) HENMT: COMMON NORMALS: normocephalic, atraumatic and Normal external nose present HEAD & SCALP: normocephalic and atraumatic FACE & SINUS: normal facial exam and face symmetric NOSE: Normal external nose present Eye: COMMON NORMALS: Equal, round and reactive pupils present and EOMs intact bilaterally PUPIL: Yes Equal, round and reactive pupils present Neck/C-Spine: GENERAL: Yes trachea midline Chest: CHEST: Yes Symmetrical chest wall rise Resp: COMMON NORMALS: normal respiratory effort, No retractions, No use of accessory muscles and clear to auscultation bilaterally AUSCULTATION: clear to auscultation bilaterally Cardio: COMMON NORMALS: regular rate and regular rhythm RATE: regular rate RHYTHM: regular rhythm GI: COMMON NORMALS: Normal to inspection, nondistended, normoactive bowel sounds present Extremity: COMMON NORMALS: no pedal edema Neuro: HOMER COMA SCALE: document GCS findings [place] coma scale eye opening: Spontaneous [place] coma scale verbal response: Orientated [place] coma scale motor response: Obey commands [place] coma scale total score: 15 SENSORY EXAM: Yes extremities (intact) Psych: COMMON NORMALS: speech normal SPEECH: Yes normal speech Skin: COMMON NORMALS: no rashes or lesions noted GENERAL SKIN EXAM: no rashes or lesions noted Course Vital Signs: Vital signs: Vital Signs Temperature 98.4 F 01/24/25 23:11 Pulse Rate 98 01/25/25 01:57 Respiratory Rate 18 01/24/25 21:45 Blood Pressure 140/60 01/25/25 01:57 Pulse Oximetry 95 01/25/25 01:57 Oxygen Delivery Me thod Nasal Cannula 01/25/25 01:04 Oxygen Flow Rate 2 01/25/25 01:04 MDM - Weakness Medical Decision Making On exam, the patient is minimally lethargic. She is otherwise coherent and answers questions appropriately. Blood sugar is 184. Creatinine is 1.2. Potassium is 3.3. Other labs not remarkable. Urine drug screen is negative. CRP is only 4. Lactic acid is 3.3 however. She is given fluid. On chest x-ray she has bibasilar left greater than right atelectasis versus infiltrate. Because of this, and because of her labile blood sugars, we will elect to treat her for pneumonia. She knows to return for any worsening symptoms despite treatment. Lab Data 01/24/25 22:31 01/24/25 22:31 Radiology Impressions Chest X-Ray 01/24/25 22:54 IMPRESSION: Bibasilar ilia-[id number]-right atelectasis verse minimal infiltrate. Laboratory Results WBC 10.10 10^3/uL (3.29-11.43) 01/24/25 22:31 RBC 5.31 10^6/uL (3.85-5.65) 01/24/25 22:31 Hgb 13.20 g/dL (11.27-16.99) 01/24/25 22:31 Hct 42.1 % (36-47) 01/24/25 22:31 MCV 79.3 fl (85-98) L 01/24/25 22:31 MCH 24.9 pg (27-33) L 01/24/25 22:31 MCHC 31.4 g/dL (30-55) 01/24/25 22:31 RDW 15.5 % (12.1-15.1) H 01/24/25 22:31 Plt Count 303 10^3/cmm (157-399) 01/24/25 22: MPV 11.0 fL (7.4-10.4) H 01/24/25 22: Neut % (Auto) 65.6 % 01/24/25 22: Lymph % (Auto) 26.7 % 01/24/25 22: [place] % (Auto) 5.5 % 01/24/25 22: Eos % (Auto) 1.3 % 01/24/25 22: Baso % (Auto) 0.7 % 01/24/25 22: Neut # (Auto) 6.62 10^3/uL (1.8-7.7) 01/24/25: Lymph # (Auto) 2.7 10^3/uL (0.8-4.8) 01/24/25: [place] # (Auto) 0.6 10^3/uL (0.2-0.9) 01/24/25: Eos # (Auto) 0.1 10^3/uL (0.0-0.8) 01/24/25: Baso # (Auto) 0.1 10^3/uL (0.0-0.1) 01/24/25: Nucleated RBC % (auto) 0 % 01/24/25: Nucleated RBCs # 0.0 /100WBC 01/24/25 22: Sodium 141 mmol/L (136-145) 01/24/25 22: Potassium 3.3 mmol/L (3.5-5.1) L 01/24/25: Chloride 99 mmol/L (98-107) 01/24/25 22: Carbon Dioxide 28 mmol/L (22-29) 01/24/25 22: Anion Gap 17.3 (5-19) 01/24/25 22: BUN 13 mg/dL (6-20) 01/24/25 22: Creatinine 1.2 mg/dL (0.5-0.9) H 01/24/25 22: GFR Calculation 46.1 mL/min (90-130) L 01/24/25 22: Glucose 184 mg/dL (65-115) H 01/24/25 22: Calculated Osmolality 297 mOsm/kg (285-295) H 01/24/25 22: Lactic Acid 3.3 mmol/L (0.5-2.2) H 01/24/25 22: Calcium 10.4 mg/dL (8.5-10.5) 01/24/25: Total Bilirubin 0.2 mg/dL (0.15-1.2) 01/24/25 22: AST 44 U/L (0-32) H 01/24/25: ALT 40 U/L (0-33) H 01/24/25 22: Alkaline Phosphatase 66 U/L (35-105) 01/24/25: C-Reactive Protein 4.1 mg/L (0.0-4.9) 01/24/25: Total Protein 8.0 g/dL (6.6-8.7) 01/24/25: Albumin 4.3 g/dL (3.5-5.2) 01/24/25: Globulin 3.7 g/dL (1.3-4.6) 01/24/25: Urine Color Yellow (Yellow) 01/24/25: Urine Appearance Clear (CLEAR) 01/24/25: Urine pH 7.5 (5-7) 01/24/25: Ur Specific [place] 1.018 (1.005-1.030) 01/24/25: Urine Protein 1+ (Negative) A 01/24/25: Urine Glucose (UA) 3+ (Normal) H 01/24/25: Urine Ketones Negative (Negative) 01/24/25: Urine Blood Trace (Negative) A 01/24/25: Urine Nitrate Negative (Negative) 01/24/25: Urine Bilirubin Negative (Negative) 01/24/25: Urine Urobilinogen 0.2 mg/dL (Negative) 01/24/25: Ur Leukocyte Esterase Negative (Negative) 01/24/25: Urine RBC 0-2 /hpf (0-2) 01/24/25: Urine WBC 0-5 /hpf (0-5) 01/24/25: Ur Squamous Epith Cells 0-5 /hpf (0-5) 01/24/25:31 Amorphous Sediment Not Reportable 01/24/25 22:31 Urine Bacteria None seen /hpf (NONE) 01/24/25 22:31 Hyaline Casts 0.81 /lpf 01/24/25 22:31 Urine Opiates Screen Negative ng/mL (Negative) 01/24/25 22:31 Ur Barbiturates Screen Negative ng/mL (Negative) 01/24/25 22:31 Ur Phencyclidine Scrn Negative ng/mL (Negative) 01/24/25 22:31 Ur Amphetamines Screen Negative ng/mL (Negative) 01/24/25 22:31 U Benzodiazepines Scrn Negative ng/mL (Negative) 01/24/25 22:31 Urine Cocaine Screen Negative ng/mL (Negative) 01/24/25 22:31 U Marijuana (THC) Screen Negative ng/mL (Negative) 01/24/25 22:31 No radiology studies performed this visit Discharge Plan Discharge Patient Disposition: Home Clinical Impression: Pneumonia Condition: Stable Prescriptions: New cefdinir 300 mg capsule 300 mg PO BID Qty: 14 0RF azithromycin 250 mg tablet See Rx Instructions .ROUTE .COMPLEX Qty: 6 0RF Rx Instructions: For 250 mg dose pack: take 500 mg today (day 1), then 250 mg for 4 days (days 2-5) No Action fenofibrate 160 mg tablet 160 mg PO DAILY furosemide 20 mg tablet 40 mg PO DAILY potassium chloride 10 mEq tablet extended release 20 meq PO DAILY silver sulfadiazine 1 % cream 1 applic topical BID 14 Days Qty: 50 2RF Rx Instructions: apply a 1.5 mm thickness mupirocin 2 % ointment 1 applic topical BID 14 Days Qty: 22 2RF (DME) right cockup splint See Rx Instructions .Route .MEDSUPPLY Qty: 1 0RF Rx Instructions: As directed (DME) left cockup splint See Rx Instructions .Route .MEDSUPPLY Qty: 1 0RF Rx Instructions: As directed diclofenac sodium [Voltaren Arthritis Pain] 1 % gel 2 g topical QID Qty: 100 0RF Rx Instructions: apply to single elbow, wrist or hand; for hand includes palm/fingers/back of hand mirabegron [Myrbetriq] 50 mg tablet extended release 24 hr 50 mg PO DAILY insulin degludec [Tresiba FlexTouch U-100] 100 unit/mL (3 mL) insulin pen 20 unit SUBCUT BID metformin 500 mg Tablet 500 mg PO BID glyburide 2.5 mg Tablet 2.5 mg PO DAILY lisinopril 30 mg Tablet 30 mg PO DAILY ondansetron 4 mg film 4 mg PO DAILY PRN (Reason: nausea and vomiting) Qty: 10 0RF hydrocortisone 2.5 % ointment 1 applic topical BID PRN (Reason: External hemorrhoids) Qty: 28.35 0RF Discharge Orders: Discharge ED (Routine); Ordered 01/25/25 Ordered By: Seth Meeks Patient Instructions: Pneumonia (ED), Opioid Safety, Pain Management Activity Restrictions/Additional Instructions: Antibiotics as directed. Check your blood sugar more often, as the pneumonia you have acquired can make your blood sugars labile. Drink plenty of fluids. Return for problems. Call your doctor tomorrow for a follow-up appointment. Print Language: Peruvian Coding Level of Care Code ED Laundry Route Driver for Chg Fwd Related Data Home Medications ?Medication ?Instructions ?Recorded ?Confirmed glyburide 2.5 mg tablet 2.5 mg PO DAILY 11/16/21 11/24/24 lisinopril 30 mg tablet 30 mg PO DAILY 11/16/21 11/24/24 metformin 500 mg tablet 500 mg PO BID 11/16/21 11/24/24 fenofibrate 160 mg tablet 160 mg PO DAILY 10/16/22 11/24/24 furosemide 20 mg tablet 40 mg PO DAILY 10/16/22 11/24/24 potassium chloride 10 mEq 20 meq PO DAILY 10/16/22 11/24/24 tablet,extended release insulin degludec 100 unit/mL (3 20 unit SUBCUT BID 11/24/24 11/24/24 mL) subcutaneous pen (Tresiba FlexTouch U-100 insulin) mirabegron 50 mg tablet,extended 50 mg PO DAILY 11/24/24 11/24/24 release 24 hr (Myrbetriq) Previous Rx's ?Medication ?Instructions ?Recorded ondansetron 4 mg oral soluble film 4 mg PO DAILY PRN nausea and 02/15/23 vomiting #10 ea mupirocin 2 % topical ointment 1 applic topical BID 2 weeks #22 04/16/23 grams silver sulfadiazine 1 % topical 1 applic topical BID 2 weeks #50 05/09/23 cream grams diclofenac sodium 1 % topical gel 2 g topical QID #100 grams 07/15/24 (Voltaren Arthritis Pain) left cockup splint #1 ea 04/13/24 right cockup splint #1 ea 04/13/24 hydrocortisone 2.5 % topical 1 applic topical BID PRN External 07/10/24 ointment hemorrhoids #28.35 grams azithromycin 250 mg tablet See Rx Instructions PO .COMPLEX #6 01/25/25 tabs cefdinir 300 mg capsule 300 mg PO BID #14 caps 01/25/25 Allergies Allergy/AdvReac Type Severity Reaction Status Date / Time levofloxacin (From Levaquin) Allergy ALGY-Rash Verified 01/24/25 21:52
[2025-01-25 00:56] LABS: Reflex Lactate Order REFLEX LACTIC ORDERD
[2025-01-25] MEDS: azithromycin 250 mg Tablet 500 MG PO (01:00)
[2025-01-25] MEDS: cefTRIAXone 1,000 mg SDV 1000 MG IVP (01:01)
[2025-01-25 01:04] VITALS: PULSE 83; O2SAT 98
[2025-01-25 01:57] VITALS: BP 140/60; PULSE 98; O2SAT 95
== END 2025-01-25 01:59 | disposition home or self-care (01) ==
PROVIDERS: Emergency Provider Emergency Medicine
DX: J18.9 Pneumonia, unspecified organism (principal); Z79.4 Long term (current) use of insulin; Z79.84 Long term (current) use of oral hypoglycemic drugs; Z87.891 Personal history of nicotine dependence; E11.9 Type 2 diabetes mellitus without complications; I10 Essential (primary) hypertension
CPT/HCPCS: 71045; 80053; 80306; 81001; 83605; 85025; 86140; 93005; 96361; 96374; 99285; J0696; J7030; Q0144

== ENCOUNTER 2025-01-28 06:30 | Outpatient (RCR) | payer MEDICAID, SELFPAY | END 2025-02-02 08:15 | disposition home or self-care (01) | LOC: GPT 06:30 | PROVIDERS: Visit Provider Orthopaedic Surgery | DX: M54.2 Cervicalgia (principal); G89.29 Other chronic pain | CPT/HCPCS: 97110; 97140 ==

== ENCOUNTER 2025-02-03 14:04 | Outpatient (CLI) | payer MEDICAID, SELFPAY ==
--- NOTE | 2025-02-03 14:06 | MM_ITS ---
WS: [id number] BILATERAL 3D TOMOSYNTHESIS DIGITAL SCREENING MAMMOGRAPHY WITH CAD CLINICAL INFORMATION: SCREENING HISTORY: Screening mammogram. No current complaints. COMPARISON: 2023 TECHNIQUE: Bilateral CC and MLO views. FINDINGS: The breasts are composed of heterogeneous fibroglandular density tissue, which can limit the detection of small underlying mass lesions. No suspicious mass, asymmetry, calcifications, or architectural distortion. No evidence of malignancy. Incidental benign calcifications. Vascular calcifications. MM/MM [facility] tomosynthesis [id number] IMPRESSION: DENSITY: The breasts are heterogeneously dense, which may obscure small masses. BI-RADS: 2 - Benign FOLLOW UP: 1 Year Follow-up Recommend return to annual screening mammography.
== END 2025-02-03 14:05 | disposition home or self-care (01) ==
PROVIDERS: Visit Provider Nurse Practitioner
DX: Z12.31 Encounter for screening mammogram for malignant neoplasm of breast (principal); R92.333 Mammographic heterogeneous density, bilateral breasts; R92.1 Mammographic calcification found on diagnostic imaging of breast
CPT/HCPCS: 77063; 77067

== ENCOUNTER 2025-02-05 14:07 | Emergency (ER) | payer MEDICAID, SELFPAY ==
[2025-02-05 14:09] VITALS: BP 149/79; PULSE 94; RESP 16; TEMP 36.7; O2SAT 96; BMI 31.5
[2025-02-05 14:17] LABS: Glucose Point of Care 87 mg/dL (70-110)
--- NOTE | 2025-02-05 14:24 | XR_ITS ---
WS: [id number] XR chest 1V portable [id number] REASON FOR EXAM: weakness FINDINGS: Chest is unchanged compared to 01/19/2025. Mild tortuosity of the thoracic aorta with normal heart size. Moderate calcified granulomatous disease in both hemithoraces. No acute pulmonary parenchymal or pleural abnormality is identified. Moderate degenerative spondylosis in the mid and lower thoracic spine. XR/XR chest 1V portable [id number] IMPRESSION: Stable chest without acute abnormality.
--- NOTE | 2025-02-05 14:24 | ECG_ITS ---
[employer] Test Date: 2025-02-05 Pat Name: Juan Estrada Department: Room: Gender: Female Applications System Analyst: : 1965 Requested By: Tony Hernandez Order Number: [id number] Reading MD: GORDON NORMAN Measurements Intervals [place] Rate: 88 P: 52 PA: 177 QRS: -12 QRSD: 117 T: 49 QT: 375 QTc: 456 Interpretive Statements SINUS RHYTHM LOW QRS VOLTAGE IN PRECORDIAL LEADS [QRS DEFLECTION < 1.0 mV IN CHEST LEADS] POSSIBLE ANTERIOR MYOCARDIAL INFARCTION , OF INDETERMINATE AGE [30 ms Q WAVE IN V3/V4, OR R < 0.2 mV IN V4] Compared to ECG 01/24/2025 21:56:12 No significant changes Electronically Signed On 02-06-2025 16:19:52 CDT by GORDON NORMNA [email or web address]
--- NOTE | 2025-02-05 14:28 | W.ED.GENADLT ---
HPI - General Adult General: Chief complaint: General Medical Stated complaint: Low glucose was 41 now in 70's a diabetic Time Seen by Provider: 02/05/25 14:22 Source: patient Mode of arrival: ambulatory Limitations: no limitations History of Present Illness: 59-year-old female history of diabetes she states she has been taking her insulin as prescribed has been having some low readings. States that this morning her blood sugar was in the 40s she did drink some juice and came up the 80s she had some lightheadedness with this denies any vomiting or diarrhea denies passing out. Associated symptoms: Reports malaise; Deny chest pain, dyspnea, headache(s), nausea, rash or vomiting Related Data Home Medications ?Medication ?Instructions ?Recorded ?Confirmed glyburide 2.5 mg tablet 2.5 mg PO DAILY 11/16/21 02/05/25 metformin 500 mg tablet 500 mg PO BID 11/16/21 02/05/25 fenofibrate 160 mg tablet 160 mg PO DAILY 10/16/22 02/05/25 furosemide 20 mg tablet 40 mg PO DAILY 10/16/22 02/05/25 potassium chloride 10 mEq 20 meq PO DAILY 10/16/22 02/05/25 tablet,extended release insulin degludec 100 unit/mL (3 22 unit SUBCUT BID 11/24/24 02/05/25 mL) subcutaneous pen (Tresiba FlexTouch U-100 insulin) mirabegron 50 mg tablet,extended 50 mg PO DAILY 11/24/24 02/05/25 release 24 hr (Myrbetriq) celecoxib 100 mg capsule 100 mg PO BID 02/05/25 02/05/25 primidone 50 mg tablet 50 mg PO DAILY 02/05/25 02/05/25 rosuvastatin 40 mg tablet 40 mg PO DAILY 02/05/25 02/05/25 Allergies Allergy/AdvReac Type Severity Reaction Status Date / Time levofloxacin (From Levaquin) Allergy ALGY-Rash Verified 01/24/25 21:52 Review of Systems Const: Reports: malaise; Denies: fever(s), chills, body aches or change in appetite ENMT: Denies: throat pain or dental pain Card: Denies: chest pain Resp: Denies: dyspnea GI: Denies: abdominal pain, nausea, vomiting or diarrhea : Denies: dysuria Musc: Denies: neck pain or back pain Skin/Breast: Denies: rash Neuro: Denies: headache(s) PFSH ED PFSH: Medical History Arthritis of neck Bleeding hemorrhoids Abnormal gait Binocular vision disorder with diplopia Headache Pulmonary disease Diabetes Hypertension Asthma Surgical History H/O tubal ligation Family History Sister Cancer Social History Smoking and tobacco/nicotine status: former use of tobacco/nicotine Course Vital Signs: Vital signs: Vital Signs Temperature 98.0 F 02/05/25 14:09 Pulse Rate 94 02/05/25 14:09 Respiratory Rate 16 02/05/25 14:09 Blood Pressure 149/79 02/05/25 14:09 Pulse Oximetry 96 02/05/25 14:09 Oxygen Delivery Me thod Room Air 02/05/25 14:09 MDM - General Adult Medical Decision Making Patient presents here with hypoglycemia at home her blood sugar here has been stable has not required any dextrose she is stable for discharge she is to follow-up with her PCP return if worsening she understands agrees to plan I did inform her to lower her dose of insulin Medical Records I reviewed the patient's medical records. Lab Data I reviewed the patient's lab results. 02/05/25 14:25 02/05/25 14: Radiology Impressions Chest X-Ray 02/05/25 14: IMPRESSION: Stable chest without acute abnormality. Laboratory Results WBC 10.05 10^3/uL (3.29-11.43) 02/05/25 14: RBC 5.56 10^6/uL (3.85-5.65) 02/05/25 14: Hgb 13.80 g/dL (11.27-16.99) 02/05/25 14: Hct 44.9 % (36-47) 02/05/25 14: MCV 80.8 fl (85-98) L 02/05/25 14: MCH 24.8 pg (27-33) L 02/05/25 14:25 MCHC 30.7 g/dL (30-55) 02/05/25 14:25 RDW 16.2 % (12.1-15.1) H 02/05/25 14:25 Plt Count 341 10^3/cmm (157-399) 02/05/25 14:25 MPV 10.4 fL (7.4-10.4) 02/05/25 14:25 Neut % (Auto) 70.0 % 02/05/25 14:25 Lymph % (Auto) 21.6 % 02/05/25 14:25 [place] % (Auto) 6.0 % 02/05/25 14:25 Eos % (Auto) 1.8 % 02/05/25 14:25 Baso % (Auto) 0.5 % 02/05/25 14:25 Neut # (Auto) 7.04 10^3/uL (1.8-7.7) 02/05/25 14:25 Lymph # (Auto) 2.2 10^3/uL (0.8-4.8) 02/05/25 14:25 [place] # (Auto) 0.6 10^3/uL (0.2-0.9) 02/05/25 14:25 Eos # (Auto) 0.2 10^3/uL (0.0-0.8) 02/05/25 14:25 Baso # (Auto) 0.1 10^3/uL (0.0-0.1) 02/05/25 14:25 Nucleated RBC % (auto) 0 % 02/05/25 14:25 Nucleated RBCs # 0.0 /100WBC 02/05/25 14:25 Sodium 138 mmol/L (136-145) 02/05/25 14:25 Potassium 3.7 mmol/L (3.5-5.1) 02/05/25 14:25 Chloride 92 mmol/L (98-107) L 02/05/25 14:25 Carbon Dioxide 29 mmol/L (22-29) 02/05/25 14:25 Anion Gap 20.7 (5-19) H 02/05/25 14:25 BUN 15 mg/dL (6-20) 02/05/25 14:25 Creatinine 1.0 mg/dL (0.5-0.9) H 02/05/25 14:25 GFR Calculation 56.9 mL/min (90-130) L 02/05/25 14:25 Glucose 63 mg/dL (65-115) L 02/05/25 14:25 POC Glucose 109 mg/dL (70-110) 02/05/25 16:36 Calculated Osmolality 285 mOsm/kg (285-295) 02/05/25 14:25 Calcium 11.0 mg/dL (8.5-10.5) H 02/05/25 14:25 Total Bilirubin 0.4 mg/dL (0.15-1.2) 02/05/25 14:25 AST 72 U/L (0-32) H 02/05/25 14:25 ALT 52 U/L (0-33) H 02/05/25 14:25 Alkaline Phosphatase 62 U/L (35-105) 02/05/25 14:25 Total Protein 8.5 g/dL (6.6-8.7) 02/05/25 14:25 Albumin 4.5 g/dL (3.5-5.2) 02/05/25 14:25 Globulin 4.0 g/dL (1.3-4.6) 02/05/25 14:25 All radiology interpretation(s) finalized by discharge EKG Data EKG 1: I personally reviewed and interpreted this EKG as follows: EKG interpretation date: 02/05/25 EKG interpretation time: 15:39 Interpretation: nsr hr [address] elevation qrs 117 qtc 421 Computer generated interpretation: Chest X-Ray 02/05/25 14:24 IMPRESSION: Stable chest without acute abnormality. Discharge Plan Discharge Patient Disposition: Home Clinical Impression: Hypoglycemia Condition: Stable Prescriptions: No Action fenofibrate 160 mg tablet 160 mg PO DAILY furosemide 20 mg tablet 40 mg PO DAILY potassium chloride 10 mEq tablet extended release 20 meq PO DAILY mirabegron [Myrbetriq] 50 mg tablet extended release 24 hr 50 mg PO DAILY insulin degludec [Tresiba FlexTouch U-100] 100 unit/mL (3 mL) insulin pen 22 unit SUBCUT BID metformin 500 mg Tablet 500 mg PO BID glyburide 2.5 mg Tablet 2.5 mg PO DAILY primidone 50 mg tablet 50 mg PO DAILY celecoxib 100 mg capsule 100 mg PO BID rosuvastatin 40 mg tablet 40 mg PO DAILY Discharge Orders: Discharge ED (Routine); Ordered 02/05/25 Ordered By: Tony Hernandez Discharge Diet: Advance as tolerated Discharge Activity: Resume usual activity Patient Instructions: Hypoglycemia in a Person with Diabetes (ED) Print Language: Bengali Coding Level of Care Code ED Wireless Consultant for Aldair Benito
[2025-02-05 14:37] LABS: Basophils # 0.1 10^3/uL (0.0-0.1); Basophils % 0.5 %; Eosinophils # 0.2 10^3/uL (0.0-0.8); Eosinophils % 1.8 %; Hematocrit 44.9 % (36-47); Lymphocytes # 2.2 10^3/uL (0.8-4.8); Lymphocytes % 21.6 %; Mean Corpuscular HGB Conc 30.7 g/dL (30-55); Mean Corpuscular Hemoglobin 24.8 pg (27-33); Mean Corpuscular Volume 80.8 fl (85-98); Mean Platelet Volume 10.4 fL (7.4-10.4); Monocytes # 0.6 10^3/uL (0.2-0.9); Neutrophils # 7.04 10^3/uL (1.8-7.7); Nucleated Red Blood Cells % 0 %; Platelet Count 341 10^3/cmm (157-399); Red Blood Count 5.56 10^6/uL (3.85-5.65); Red Cell Distribution Width 16.2 % (12.1-15.1); White Blood Count 10.05 10^3/uL (3.29-11.43)
[2025-02-05 14:47] LABS: Alanine Aminotransferase 52 U/L (0-33); Albumin Level 4.5 g/dL (3.5-5.2); Alkaline Phosphatase 62 U/L (35-105); Aspartate Amino Transferase 72 U/L (0-32); Blood Urea Nitrogen 15 mg/dL (6-20); Carbon Dioxide 29 mmol/L (22-29); Chloride 92 mmol/L (98-107); Creatinine Clr Calc Pharmacy 68.4996; Glomerular Filtration Rate 56.9 mL/min (90-130); Glucose 63 mg/dL (65-115); Osmolality Calculated 285 mOsm/kg (285-295); Sodium 138 mmol/L (136-145); Total Bilirubin 0.4 mg/dL (0.15-1.2); Total Protein 8.5 g/dL (6.6-8.7)
[2025-02-05 14:50] LABS: Anion Gap 20.7 (5-19); Potassium 3.7 mmol/L (3.5-5.1)
[2025-02-05 15:07] LABS: Glucose Point of Care 68 mg/dL (70-110)
[2025-02-05 15:08] LABS: Glucose Point of Care 84 mg/dL (70-110)
[2025-02-05 15:46] LABS: Glucose Point of Care 99 mg/dL (70-110)
[2025-02-05 16:38] LABS: Glucose Point of Care 109 mg/dL (70-110)
[2025-02-05 17:02] VITALS: BP 125/73; PULSE 87; RESP 16; O2SAT 95
== END 2025-02-05 17:04 | disposition home or self-care (01) ==
PROVIDERS: Emergency Provider Emergency Medicine
DX: E11.649 Type 2 diabetes mellitus with hypoglycemia without coma (principal); I10 Essential (primary) hypertension; Z87.891 Personal history of nicotine dependence; Z79.4 Long term (current) use of insulin; Z79.84 Long term (current) use of oral hypoglycemic drugs
CPT/HCPCS: 36415; 36416; 71045; 80053; 82962; 85025; 93005; 99285

== ENCOUNTER 2025-02-08 12:31 | Outpatient (CLI) | payer MEDICAID, SELFPAY ==
--- NOTE | 2025-02-08 13:00 | MR_ITS ---
WS: [id number] MRI CERVICAL SPINE NONCONTRAST TECHNIQUE: Sagittal T1, T2 and STIR imaging. Axial T2, gradient, and fiesta imaging. CLINICAL INFORMATION: neck pain COMPARISON: None. FINDINGS: Images moderately degraded by motion. Straightening of the normal cervical lordosis. Disc osteophyte protrusions worse C5-C6 and C6-7. C2-C3: Mild facet arthropathy. Mild LEFT bony foraminal narrowing. C3-C4: Disc osteophyte complex with endplate ridging. Moderate LEFT and mild RIGHT bony foraminal narrowing. Mild facet arthropathy. C4-C5: Disc osteophyte complex with endplate ridging. Severe LEFT bony foraminal narrowing. Moderate facet arthropathy. Spinal canal is patent. C5-C6: RIGHT paracentral disc osteophyte protrusion with indentation on the RIGHT ventral cervical cord. Mild to moderate central canal stenosis. Severe bilateral bony foraminal narrowing. C6-C7: Central disc osteophyte protrusion. Severe LEFT bony foraminal narrowing. Mild RIGHT foraminal narrowing. Mild central canal stenosis. C7-T1: Mild LEFT and no significant RIGHT foraminal narrowing. Spinal canal is patent. Tiny central disc osteophyte protrusion. Partially visualized 10 mm RIGHT thyroid nodule. MR/MR cervical spin wo con* [id number] IMPRESSION: Some images degraded by motion and respiratory artifact. 1. Disc osteophyte protrusion C5-C6 and C6-C7 with indentation on the cervical cord with mild to moderate central canal stenosis worse at C5-6. 2. Severe bilateral C5-C6 and LEFT C6-C7 bony foraminal narrowing
== END 2025-02-08 12:32 | disposition home or self-care (01) ==
PROVIDERS: PCP Nurse Practitioner; Visit Provider Orthopaedic Surgery
DX: M48.02 Spinal stenosis, cervical region (principal); M25.78 Osteophyte, vertebrae; M50.222 Other cervical disc displacement at C5-C6 level; M50.223 Other cervical disc displacement at C6-C7 level; R93.7 Abnormal findings on diagnostic imaging of other parts of musculoskeletal system; M47.892 Other spondylosis, cervical region; M48.03 Spinal stenosis, cervicothoracic region; E04.1 Nontoxic single thyroid nodule
CPT/HCPCS: 72141

== ENCOUNTER 2025-05-12 11:23 | Emergency (ER) | payer OTHER, SELFPAY ==
[2025-05-12 11:37] VITALS: BP 177/74; PULSE 86; TEMP 37.1; O2SAT 95
--- NOTE | 2025-05-12 11:56 | W.ED.WOUNDLC ---
HPI - Wound/Laceration General: Chief Complaint: Wound/Laceration Stated Complaint: R thumb lac Time Seen by Provider: 05/12/25 11:35 Source: patient Mode of arrival: ambulatory Limitations: no limitations History of Present Illness: 59-year-old female who states she had had a right thumb laceration last night with a meat packager does have a superficial laceration partially through her distal nail she denies any pain she went and seen her clinic doctor had given her tetanus no bleeding at this time Associated symptoms: Denies chills, fever(s), nausea or vomiting Related Data Home Medications ?Medication ?Instructions ?Recorded ?Confirmed glyburide 2.5 mg tablet 2.5 mg PO DAILY 11/16/21 03/25/25 metformin 500 mg tablet 500 mg PO BID 11/16/21 03/25/25 fenofibrate 160 mg tablet 160 mg PO DAILY 10/16/22 03/25/25 furosemide 20 mg tablet 40 mg PO DAILY 10/16/22 03/25/25 potassium chloride 10 mEq 20 meq PO DAILY 10/16/22 03/25/25 tablet,extended release insulin degludec 100 unit/mL (3 22 unit SUBCUT BID 11/24/24 03/25/25 mL) subcutaneous pen (Tresiba FlexTouch U-100 insulin) mirabegron 50 mg tablet,extended 50 mg PO DAILY 11/24/24 03/25/25 release 24 hr (Myrbetriq) celecoxib 100 mg capsule 100 mg PO BID 02/05/25 03/25/25 primidone 50 mg tablet 50 mg PO DAILY 02/05/25 03/25/25 rosuvastatin 40 mg tablet 40 mg PO DAILY 02/05/25 03/25/25 Allergies Allergy/AdvReac Type Severity Reaction Status Date / Time levofloxacin (From Levaquin) Allergy ALGY-Rash Verified 05/12/25 11:42 Review of Systems Const: Denies: fever(s), chills, body aches or change in appetite ENMT: Denies: throat pain or dental pain Card: Denies: chest pain Resp: Denies: dyspnea GI: Denies: abdominal pain, nausea, vomiting or diarrhea Musc: Denies: neck pain or back pain Skin/Breast: Denies: rash All/Imm: Denies: urticaria PFSH ED PFSH: Medical History Arthritis of neck Bleeding hemorrhoids Abnormal gait Binocular vision disorder with diplopia Headache Pulmonary disease Diabetes Hypertension Asthma Surgical History H/O tubal ligation Family History Sister Cancer Social History Smoking and tobacco/nicotine status: former use of tobacco/nicotine Physical Exam Const: COMMON NORMALS: no acute distress, patient oriented x3 and healthy appearing HENMT: COMMON NORMALS: normocephalic and atraumatic HEAD & SCALP: normocephalic and atraumatic Neck/C-Spine: COMMON NORMALS: full ROM and supple Chest: COMMONS NORMALS: normal inspection of the chest Resp: COMMON NORMALS: normal respiratory effort Cardio: COMMON NORMALS: regular rate RATE: regular rate Extremity: COMMON NORMALS: full ROM NARRATIVE EXTREMITY EXAM: Superficial laceration to the distal left thumb barely through the nail with no bleeding Neuro: COMMON NORMALS: patient oriented x3, moves all extremities and no focal motor deficits Psych: COMMON NORMALS: mental status grossly normal, Normal thought process present and cooperative THOUGHT PROCESS: Normal thought process present Skin: COMMON NORMALS: no rashes or lesions noted and no wounds GENERAL SKIN EXAM: no rashes or lesions noted Course Vital Signs: Vital signs: Vital Signs Temperature 98.7 F 05/12/25 11:37 Pulse Rate 86 05/12/25 11:37 Blood Pressure 177/74 05/12/25 11:37 Pulse Oximetry 95 05/12/25 11:37 Oxygen Delivery Me thod Room Air 05/12/25 11:37 MDM - Wound/Laceration Medical Decision Making Patient presents here with a distal thumb laceration does not need repair it is over 12 hours old and superficial nail is intact will leave in place no signs of nailbed laceration No radiology studies performed this visit Discharge Plan Discharge Patient Disposition: Home Clinical Impression: Laceration Condition: Stable Prescriptions: No Action fenofibrate 160 mg tablet 160 mg PO DAILY furosemide 20 mg tablet 40 mg PO DAILY potassium chloride 10 mEq tablet extended release 20 meq PO DAILY mirabegron [Myrbetriq] 50 mg tablet extended release 24 hr 50 mg PO DAILY insulin degludec [Tresiba FlexTouch U-100] 100 unit/mL (3 mL) insulin pen 22 unit SUBCUT BID metformin 500 mg Tablet 500 mg PO BID glyburide 2.5 mg Tablet 2.5 mg PO DAILY primidone 50 mg tablet 50 mg PO DAILY celecoxib 100 mg capsule 100 mg PO BID rosuvastatin 40 mg tablet 40 mg PO DAILY Discharge Orders: Discharge ED (Routine); Ordered 05/12/25 Ordered By: Tony Hernandez Referrals: Vivek Reyez FNP [Primary Care Provider, Nurse Practitioner] Discharge Diet: Advance as tolerated Discharge Activity: Resume usual activity Patient Instructions: Laceration (ED) Print Language: Liberian Coding Level of Care Code ED Drop Hammer Set Up Operator for Aldair Benito
--- OUTSIDE RECORDS SUMMARY | 2025-05-12 20:48 | XMS_ITS | Encounter Summary ---
Author Organization [facility] Address [address] [place] [address] Care Team Providers Care Collar Turner Name Role Phone Teddy Altman MD Primary Care Provider Unavail able Encounter Details Date Type Department Care Team (Latest Contact Info) Description 07/27/2003 Outpatient Historical [facility] OBGYN-[place] [address] [place] [phone] Alexandre Das MD NO ADDRESS ON FILE SURGERY FOLLOWUP, UNSPEC (Primary Dx) Social History Tobacco Use Types Packs/Day Years Used Date Smoking Tobacco: Never Assessed Comments Unknown Sex and Gender Information Value Date Recorded Sex Assigned at Not on file Legal Sex Female 3:25 AM METROLOGY MANAGER Gender Identity Not on file Sexual Orientation Not on file documented as of this encounter Plan of Treatment Not on file documented as of this encounter Visit Diagnoses Diagnosis Follow-up examination, following unspecified surgery- Primary documented in this encounter Care Teams Collar Turner Relationship Specialty Start Date End Date Teddy Altman MD NO ADDRESS ON FILE PCP - General 05/03/03 documented as of this encounter
--- OUTSIDE RECORDS SUMMARY | 2025-05-12 20:48 | XMS_ITS | Encounter Summary ---
Author Organization [facility] Address [address] [place] [address] Care Team Providers Care Program Manager Rn Name Role Phone Teddy Altman MD Primary Care Provider Unavail able Encounter Details Date Type Department Care Team (Latest Contact Info) Description 05/11/2003 Outpatient Historical [facility] OBGYN-[place] Arnel [place] [address] [place] [phone] Alexandre Das MD NO ADDRESS ON FILE CONTRACEPTIVE MANGMT NEC (Primary Dx) Social History Tobacco Use Types Packs/Day Years Used Date Smoking Tobacco: Never Assessed Comments Unknown Sex and Gender Information Value Date Recorded Sex Assigned at Not on file Legal Sex Female 3:25 AM LENS DOTTER Gender Identity Not on file Sexual Orientation Not on file documented as of this encounter Plan of Treatment Not on file documented as of this encounter Visit Diagnoses Diagnosis Other general counseling and advice for contraceptive management- Primary documented in this encounter Care Teams Program Manager Rn Relationship Specialty Start Date End Date Teddy Altman MD NO ADDRESS ON FILE PCP - General 05/03/03 documented as of this encounter
--- OUTSIDE RECORDS SUMMARY | 2025-05-12 20:48 | XMS_ITS | Encounter Summary ---
Author Organization [facility] Address [address] [place] [address] Care Team Providers Care Abstract Writer Name Role Phone Teddy Altman MD Primary Care Provider Unavail able Encounter Details Date Type Department Care Team (Latest Contact Info) Description 05/03/2003 Outpatient Historical [facility] Gastroenterology- [place] [address] [place] [address] Rohit Price MD [address] [facility] [address] [place] [address] CHEST PAIN NOS (Primary Dx); ESOPHAGEAL REFLUX Social History Tobacco Use Types Packs/Day Years Used Date Smoking Tobacco: Never Assessed Comments Unknown Sex and Gender Information Value Date Recorded Sex Assigned at Not on file Legal Sex Female 3:25 AM ECONOMIST RESEARCH ASSISTANT Gender Identity Not on file Sexual Orientation Not on file documented as of this encounter Plan of Treatment Not on file documented as of this encounter Visit Diagnoses Diagnosis Chest pain, unspecified- Primary Esophageal reflux documented in this encounter Care Teams Abstract Writer Relationship Specialty Start Date End Date Teddy Altman MD NO ADDRESS ON FILE PCP - General 05/03/03 documented as of this encounter
--- OUTSIDE RECORDS SUMMARY | 2025-05-12 20:48 | XMS_ITS | Encounter Summary ---
Author Organization [facility] Address [address] [place] [address] Care Team Providers Care Aircraft Air Conditioning Mechanic Name Role Phone Teddy Altman MD Primary Care Provider Unavail able Encounter Details Date Type Department Care Team (Latest Contact Info) Description 04/21/2003 Outpatient Historical [facility] Medicine [place] [address] [address] Elvia Sutton, SUPERVISOR ALUMINUM BOAT ASSEMBLY NO ADDRESS ON FILE OBESITY NOS (Primary Dx) Social History Tobacco Use Types Packs/Day Years Used Date Smoking Tobacco: Never Assessed Comments Unknown Sex and Gender Information Value Date Recorded Sex Assigned at Not on file Legal Sex Female 3:25 AM GRAND JURY DEPUTY SHERIFF Gender Identity Not on file Sexual Orientation Not on file documented as of this encounter Plan of Treatment Not on file documented as of this encounter Visit Diagnoses Diagnosis Obesity, unspecified- Primary documented in this encounter Care Teams Aircraft Air Conditioning Mechanic Relationship Specialty Start Date End Date Teddy Altman MD NO ADDRESS ON FILE PCP - General 05/03/03 documented as of this encounter
--- OUTSIDE RECORDS SUMMARY | 2025-05-12 20:48 | XMS_ITS | Encounter Summary ---
Author Organization [facility] Address [address] [facility] [address] Care Team Providers Care Plate Grinder Name Role Phone Teddy Altman MD Primary Care Provider Unavail able Encounter Details Date Type Department Care Team (Latest Contact Info) Description 07/07/2003 Outpatient Historical [facility] Family Medicine [place] [address] [address] Teddy Altman MD NO ADDRESS ON FILE HEADACHE (Primary Dx); Vaccine for influenza Social History Tobacco Use Types Packs/Day Years Used Date Smoking Tobacco: Never Assessed Comments Unknown Sex and Gender Information Value Date Recorded Sex Assigned at Not on file Legal Sex Female 3:25 AM DIRECTOR CLIENT SERVICES Gender Identity Not on file Sexual Orientation Not on file documented as of this encounter Plan of Treatment Not on file documented as of this encounter Visit Diagnoses Diagnosis Headache(784.0)- Primary Headache Vaccine for influenza Need for prophylactic vaccination and inoculation against influenza documented in this encounter Care Teams Plate Grinder Relationship Specialty Start Date End Date Teddy Altman MD NO ADDRESS ON FILE PCP - General 05/03/03 documented as of this encounter
--- OUTSIDE RECORDS SUMMARY | 2025-05-12 20:48 | XMS_ITS | Clinical Summary ---
Author Organization [facility] Address [address] [place]: Epic Prelude ADT [place] [address] Care Team Providers Care Flow Floor Attendant Name Role Phone Teddy Altman MD Primary Care Provider Unavail able Immunizations Immunization Administration Dates Next Due Influenza Seasonal Unspecified Formulation IM Social History Tobacco Use Types Packs/Day Years Used Date Smoking Tobacco: Never Assessed Comments Unknown Sex and Gender Information Value Date Recorded Sex Assigned at Not on file Legal Sex Female 11:04 AM DRYING MACHINE TENDER Gender Identity Not on file Sexual Orientation Not on file Plan of Treatment Health Maintenance Due Date Last Done Comments DTAP/TDAP/TD VACCINES (1 - Tdap) 1985 HEPATITIS B VACCINES (1 of 3 - 19+ 3-dose series) 1985 HPV/Cotest (21-29) 1987 CERVICAL CANCER SCREENING 1996 HPV/Cotest (30-65) 1996 PAP SMEAR 1996 COLORECTAL SCREENING 2011 Colorectal Cancer Screening 2011 FIT-DNA Q 3 years 2011 FIT/FOBT Q 1 year 2011 Flex Sig/CT Colonography Q 5 years 2011 ZOSTER VACCINE (1 of 2) 2016 BREAST CANCER SCREENING 01/09/2023 01/09/2022, 04/26 INFLUENZA VACCINE (#1) 2025 07/07/2003 Procedures Procedure Name Priority Date/Time Associated Diagnosis Comments MAMMO SCREEN BILAT W OR WO CAD Routine 01/09/2022 from Last 3 Months or Most Recently Relevant to Health Maintenance Results * MAMMO SCREEN BILAT W OR WO CAD (01/09/2022) Anatomical Region Laterality Modality Breast Bilateral Mammography us Abstract Provider MAMMO ORDERABLES Final Result from Last 3 Months or Most Recently Relevant to Health Maintenance Care Teams Flow Floor Attendant Relationship Specialty Start Date End Date Teddy Altman MD NO ADDRESS ON FILE PCP - General 05/03/03
--- OUTSIDE RECORDS SUMMARY | 2025-05-12 20:48 | XMS_ITS | Encounter Summary ---
Author Organization [facility] Address [address] [place] [address] Care Team Providers Care Slate Roofer Helper Name Role Phone Teddy Altman MD Primary Care Provider Unavail able Encounter Details Date Type Department Care Team (Latest Contact Info) Description 07/03/2003 Outpatient Historical [facility] Imaging Services [address] [place] [address] Elvia Sutton, LIQUOR CLERK NO ADDRESS ON FILE BRAIN CONDITIONS NEC (Primary Dx) Social History Tobacco Use Types Packs/Day Years Used Date Smoking Tobacco: Never Assessed Comments Unknown Sex and Gender Information Value Date Recorded Sex Assigned at Not on file Legal Sex Female 3:25 AM SURGICAL CONSULTANT Gender Identity Not on file Sexual Orientation Not on file documented as of this encounter Plan of Treatment Not on file documented as of this encounter Visit Diagnoses Diagnosis Brain conditions NEC- Primary Other conditions of brain documented in this encounter Care Teams Slate Roofer Helper Relationship Specialty Start Date End Date Teddy Altman MD NO ADDRESS ON FILE PCP - General 05/03/03 documented as of this encounter
--- OUTSIDE RECORDS SUMMARY | 2025-05-12 20:48 | XMS_ITS | Encounter Summary ---
Author Organization [facility] Address [address] [facility] [facility] [place] [address] Care Team Providers Care Abrasive Sawyer Name Role Phone Teddy Altman MD Primary Care Provider Unavail able Encounter Details Date Type Department Care Team (Latest Contact Info) Description 02/12/2003 Outpatient Historical [facility] Medicine [place] [address] [address] Teddy Altman MD NO ADDRESS ON FILE FEMALE GENITAL SYMPTOMS NOS (Primary Dx); MORBID OBESITY (CMS/HCC); EDEMA; CHEST PAIN NOS Social History Tobacco Use Types Packs/Day Years Used Date Smoking Tobacco: Never Assessed Comments Unknown Sex and Gender Information Value Date Recorded Sex Assigned at Not on file Legal Sex Female 3:25 AM VENTILATED RIB FITTER Gender Identity Not on file Sexual Orientation Not on file documented as of this encounter Plan of Treatment Not on file documented as of this encounter Visit Diagnoses Diagnosis Unspecified symptom associated with female genital organs- Primary Morbid obesity (CMS/HCC) Morbid obesity Edema Chest pain, unspecified documented in this encounter Care Teams Abrasive Sawyer Relationship Specialty Start Date End Date Teddy Altman MD NO ADDRESS ON FILE PCP - General 05/03/03 documented as of this encounter
--- OUTSIDE RECORDS SUMMARY | 2025-05-12 20:48 | XMS_ITS | Encounter Summary ---
Author Organization [facility] Address [address] [facility] [place] [address] Care Team Providers Care Watch And Clock Maker And Repairer Name Role Phone Teddy Altman MD Primary Care Provider Unavail able Encounter Details Date Type Department Care Team (Latest Contact Info) Description 08/04/2003 Outpatient Historical [facility] Medicine [place] [address] [address] Teddy Altman MD NO ADDRESS ON FILE HYPERLIPIDEMIA NEC/NOS (Primary Dx); VAGINITIS NOS; ANEMIA NOS Social History Tobacco Use Types Packs/Day Years Used Date Smoking Tobacco: Never Assessed Comments Unknown Sex and Gender Information Value Date Recorded Sex Assigned at Not on file Legal Sex Female 3:25 AM ACCESS SERVICES LIBRARIAN Gender Identity Not on file Sexual Orientation Not on file documented as of this encounter Plan of Treatment Not on file documented as of this encounter Visit Diagnoses Diagnosis Other and unspecified hyperlipidemia- Primary Vaginitis and vulvovaginitis, unspecified Anemia, unspecified documented in this encounter Care Teams Watch And Clock Maker And Repairer Relationship Specialty Start Date End Date Teddy Altman MD NO ADDRESS ON FILE PCP - General 05/03/03 documented as of this encounter
--- OUTSIDE RECORDS SUMMARY | 2025-05-12 20:48 | XMS_ITS | Encounter Summary ---
Author Organization [facility] Address [address] [place] [address] Care Team Providers Care Operations Director Name Role Phone Teddy Altman MD Primary Care Provider Unavail able Encounter Details Date Type Department Care Team (Latest Contact Info) Description 08/18/2002 Outpatient Historical [facility] Medicine [place] [address] [facility] [place] [address] [place] [address] Corby Hager MD GASTROINTEST HEMORR NOS (Primary Dx) Social History Tobacco Use Types Packs/Day Years Used Date Smoking Tobacco: Never Assessed Comments Unknown Sex and Gender Information Value Date Recorded Sex Assigned at Not on file Legal Sex Female 3:25 AM BOAT OAR MAKER Gender Identity Not on file Sexual Orientation Not on file documented as of this encounter Plan of Treatment Not on file documented as of this encounter Visit Diagnoses Diagnosis Hemorrhage of gastrointestinal tract, unspecified- Primary documented in this encounter Care Teams Operations Director Relationship Specialty Start Date End Date Teddy Altman MD NO ADDRESS ON FILE PCP - General 05/03/03 documented as of this encounter
--- OUTSIDE RECORDS SUMMARY | 2025-05-12 20:48 | XMS_ITS | Encounter Summary ---
Author Organization [facility] Address [address] [place] [address] Care Team Providers Care Risk Control Product Liability Director Name Role Phone Teddy Altman MD Primary Care Provider Unavail able Encounter Details Date Type Department Care Team (Latest Contact Info) Description 04/28/2003 Outpatient Historical [facility] Medicine [place] [address] [address] Elvia Sutton, SUGAR MIXER NO ADDRESS ON FILE SCREENING MAL NEOP-CERVIX (Primary Dx) Social History Tobacco Use Types Packs/Day Years Used Date Smoking Tobacco: Never Assessed Comments Unknown Sex and Gender Information Value Date Recorded Sex Assigned at Not on file Legal Sex Female 3:25 AM LOOM TUNER Gender Identity Not on file Sexual Orientation Not on file documented as of this encounter Plan of Treatment Not on file documented as of this encounter Visit Diagnoses Diagnosis Screening for malignant neoplasm of the cervix- Primary documented in this encounter Care Teams Risk Control Product Liability Director Relationship Specialty Start Date End Date Teddy Altman MD NO ADDRESS ON FILE PCP - General 05/03/03 documented as of this encounter
--- OUTSIDE RECORDS SUMMARY | 2025-05-12 20:48 | XMS_ITS | Encounter Summary ---
Author Organization [facility] Address [address] [place] [address] Care Team Providers Care Die Polisher Name Role Phone Teddy Altman MD Primary Care Provider Unavail able Encounter Details Date Type Department Care Team (Latest Contact Info) Description 04/27/2003 Outpatient Historical [facility] Medicine [place] [address] [address] Teddy Altman MD NO ADDRESS ON FILE HYPERLIPIDEMIA NEC/NOS (Primary Dx); GLOSSITIS Social History Tobacco Use Types Packs/Day Years Used Date Smoking Tobacco: Never Assessed Comments Unknown Sex and Gender Information Value Date Recorded Sex Assigned at Not on file Legal Sex Female 3:25 AM WOOD TYPE FINISHER Gender Identity Not on file Sexual Orientation Not on file documented as of this encounter Plan of Treatment Not on file documented as of this encounter Visit Diagnoses Diagnosis Other and unspecified hyperlipidemia- Primary Glossitis documented in this encounter Care Teams Die Polisher Relationship Specialty Start Date End Date Teddy Altman MD NO ADDRESS ON FILE PCP - General 05/03/03 documented as of this encounter
--- OUTSIDE RECORDS SUMMARY | 2025-05-12 20:48 | XMS_ITS | Encounter Summary ---
Author Organization [facility] Address [address] [place] [address] Care Team Providers Care Web Press Roll Tender Name Role Phone Teddy Altman MD Primary Care Provider Unavail able Encounter Details Date Type Department Care Team (Latest Contact Info) Description 05/10/2003 Outpatient Historical [facility] Family Medicine [place] [address] [address] Teddy Altman MD NO ADDRESS ON FILE COMMON MIGRAINE W/O MENTN INTRACT (Primary Dx) Social History Tobacco Use Types Packs/Day Years Used Date Smoking Tobacco: Never Assessed Comments Unknown Sex and Gender Information Value Date Recorded Sex Assigned at Not on file Legal Sex Female 3:25 AM SAMPLER TESTER Gender Identity Not on file Sexual Orientation Not on file documented as of this encounter Plan of Treatment Not on file documented as of this encounter Visit Diagnoses Diagnosis Migraine without aura, without mention of intractable migraine without mention of status migrainosus- Primary documented in this encounter Care Teams Web Press Roll Tender Relationship Specialty Start Date End Date Teddy Altman MD NO ADDRESS ON FILE PCP - General 05/03/03 documented as of this encounter
--- OUTSIDE RECORDS SUMMARY | 2025-05-12 20:48 | XMS_ITS | Encounter Summary ---
Author Organization [facility] Address [address] [place] [address] Care Team Providers Care Helicopter Engineer Name Role Phone Teddy Altman MD Primary Care Provider Unavail able Encounter Details Date Type Department Care Team (Latest Contact Info) Description 07/21/2003 Outpatient Historical [facility] Medicine [place] [address] [address] Teddy Altman MD NO ADDRESS ON FILE VAGINITIS NOS (Primary Dx); CANDIDAL VULVOVAGINITIS Social History Tobacco Use Types Packs/Day Years Used Date Smoking Tobacco: Never Assessed Comments Unknown Sex and Gender Information Value Date Recorded Sex Assigned at Not on file Legal Sex Female 3:25 AM EMAIL MARKETER Gender Identity Not on file Sexual Orientation Not on file documented as of this encounter Plan of Treatment Not on file documented as of this encounter Visit Diagnoses Diagnosis Vaginitis and vulvovaginitis, unspecified- Primary Candidiasis of vulva and vagina documented in this encounter Care Teams Helicopter Engineer Relationship Specialty Start Date End Date Teddy Altman MD NO ADDRESS ON FILE PCP - General 05/03/03 documented as of this encounter
--- OUTSIDE RECORDS SUMMARY | 2025-05-12 20:48 | XMS_ITS | Encounter Summary ---
Author Organization [facility] Address [address] [facility] [place] [address] Care Team Providers Care [employer] Coxswain Name Role Phone Teddy Altman MD Primary Care Provider Unavail able Encounter Details Date Type Department Care Team (Latest Contact Info) Description 05/06/2003 Outpatient Historical [facility] [place] [address] [phone] Teddy Altman MD NO ADDRESS ON FILE ABSENCE OF MENSTRUATION (Primary Dx) Social History Tobacco Use Types Packs/Day Years Used Date Smoking Tobacco: Never Assessed Comments Unknown Sex and Gender Information Value Date Recorded Sex Assigned at Not on file Legal Sex Female 3:25 AM MOTOR BUILDER WINDER Gender Identity Not on file Sexual Orientation Not on file documented as of this encounter Plan of Treatment Not on file documented as of this encounter Visit Diagnoses Diagnosis Absence of menstruation- Primary documented in this encounter Care Teams [employer] Coxswain Relationship Specialty Start Date End Date Teddy Altman MD NO ADDRESS ON FILE PCP - General 05/03/03 documented as of this encounter
--- OUTSIDE RECORDS SUMMARY | 2025-05-12 20:48 | XMS_ITS | Encounter Summary ---
Author Organization [facility] Address [address] [place] [address] Care Team Providers Care Truck Caterer Name Role Phone Teddy Altman MD Primary Care Provider Unavail able Encounter Details Date Type Department Care Team (Latest Contact Info) Description 08/17/2002 Outpatient Historical [facility] [place] [address] [facility] [address] [place] [address] Corby Hager MD Rectal/anal hemorrhage (Primary Dx) Social History Tobacco Use Types Packs/Day Years Used Date Smoking Tobacco: Never Assessed Comments Unknown Sex and Gender Information Value Date Recorded Sex Assigned at Not on file Legal Sex Female 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
--- OUTSIDE RECORDS SUMMARY | 2025-05-12 20:48 | XMS_ITS | Encounter Summary ---
Author Organization [facility] Address [address] [place] [address] Care Team Providers Care District Leader Name Role Phone Teddy Altman MD Primary Care Provider Unavail able Encounter Details Date Type Department Care Team (Latest Contact Info) Description 05/27/2003 Outpatient Historical [facility] Medicine [place] [address] [phone] Elvia Sutton, CHROMOSOMAL DISORDERS COUNSELOR NO ADDRESS ON FILE ALOPECIA NOS (Primary Dx) Social History Tobacco Use Types Packs/Day Years Used Date Smoking Tobacco: Never Assessed Comments Unknown Sex and Gender Information Value Date Recorded Sex Assigned at Not on file Legal Sex Female 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
--- OUTSIDE RECORDS SUMMARY | 2025-05-12 20:48 | XMS_ITS | Clinical Summary ---
Author Organization [employer] [facility] Address [address] Ericn: Epic Prelude ADT [place] [address] Care Team Providers Care Complex Director Name Role Phone Teddy Altman MD Primary Care Provider Unavail able Immunizations Immunization Administration Dates Next Due Influenza Seasonal Unspecified Formulation IM Social History Tobacco Use Types Packs/Day Years Used Date Smoking Tobacco: Never Assessed Comments Unknown Sex and Gender Information Value Date Recorded Sex Assigned at Not on file Legal Sex Female 3:25 AM EDGE INKER UPPERS Gender Identity Not on file Sexual Orientation Not on file Plan of Treatment Health Maintenance Due Date Last Done Comments DTAP/TDAP/TD VACCINES (1 - Tdap) 1985 HEPATITIS B VACCINES (1 of 3 - 19+ 3-dose series) 10/31 HPV/Cotest (21-29) 1987 CERVICAL CANCER SCREENING 1996 HPV/Cotest (30-65) 1996 PAP SMEAR 1996 COLORECTAL SCREENING 2011 Colorectal Cancer Screening 2011 FIT-DNA Q 3 years 2011 FIT/FOBT Q 1 year 2011 Flex Sig/CT Colonography Q 5 years 11/17/20112001 ZOSTER VACCINE (1 of 2) 2016 BREAST CANCER SCREENING 04/26/2021 04/26/2020 INFLUENZA VACCINE (#1) 2025 07/07/2003 Procedures Procedure Name Priority Date/Time Associated Diagnosis Comments MAMMO SCREEN BILAT W OR WO CAD Routine 04/26/2020 from Last 3 Months or Most Recently Relevant to Health Maintenance Results * MAMMO SCREEN BILAT W OR WO CAD (04/26/2020) Anatomical Region Laterality Modality Breast Bilateral Mammography us Abstract Spg Provider MAMMO ORDERABLES Final Res ult from Last 3 Months or Most Recently Relevant to Health Maintenance Care Teams Complex Director Relationship Specialty Start Date End Date Teddy Altman MD NO ADDRESS ON FILE PCP - General 05/03/03
--- OUTSIDE RECORDS SUMMARY | 2025-05-12 20:48 | XMS_ITS | Encounter Summary ---
Author Organization [facility] Address [address] [facility] [place] [address] Care Team Providers Care Pals Nurse Name Role Phone Teddy Altman MD Primary Care Provider Unavail able Encounter Details Date Type Department Care Team (Latest Contact Info) Description 04/28/2003 Outpatient Historical [facility] Medicine [place] [address] [phone] Teddy Altman MD NO ADDRESS ON FILE Gynecologic examination (Primary Dx); HYPERLIPIDEMIA NEC/NOS; VAGINITIS NOS Social History Tobacco Use Types Packs/Day Years Used Date Smoking Tobacco: Never Assessed Comments Unknown Sex and Gender Information Value Date Recorded Sex Assigned at Not on file Legal Sex Female 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
--- OUTSIDE RECORDS SUMMARY | 2025-05-12 20:48 | XMS_ITS | Encounter Summary ---
Author Organization [facility] Address [address] [facility] [place] [address] Care Team Providers Care Manager Of Transportation Name Role Phone Teddy Altman MD Primary Care Provider Unavail able Encounter Details Date Type Department Care Team (Latest Contact Info) Description 06/15/2003 Outpatient Historical [facility] Medicine [place] [id number] [phone] Teddy Altman MD NO ADDRESS ON FILE ACUTE URI NOS (Primary Dx); ACUTE BRONCHITIS; ELEV BL PRES W/O HYPERTN Social History Tobacco Use Types Packs/Day Years Used Date Smoking Tobacco: Never Assessed Comments Unknown Sex and Gender Information Value Date Recorded Sex Assigned at Not on file Legal Sex Female 3:25 AM 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
--- OUTSIDE RECORDS SUMMARY | 2025-05-12 20:48 | XMS_ITS | Encounter Summary ---
Author Organization [facility] Address [address] [place] [address] Care Team Providers Care Oral Communication Instructor Name Role Phone Teddy Altman MD Primary Care Provider Unavail able Encounter Details Date Type Department Care Team (Latest Contact Info) Description 06/22/2003 Outpatient Historical [facility]BG[facility]-[place] Arnel Beb[place] [address] [place] [phone] Alexandre Das MD NO ADDRESS ON FILE PREOP EXAM OTHER SPECIFIED (Primary Dx); STERILIZATION Social History Tobacco Use Types Packs/Day Years Used Date Smoking Tobacco: Never Assessed Comments Unknown Sex and Gender Information Value Date Recorded Sex Assigned at Not on file Legal Sex Female 3:25 AM PLATE SETTER Gender Identity Not on file Sexual Orientation Not on file documented as of this encounter Plan of Treatment Not on file documented as of this encounter Visit Diagnoses Diagnosis Other specified pre-operative examination- Primary Sterilization documented in this encounter Care Teams Oral Communication Instructor Relationship Specialty Start Date End Date Teddy Altman MD NO ADDRESS ON FILE PCP - General 05/03/03 documented as of this encounter
--- OUTSIDE RECORDS SUMMARY | 2025-05-12 20:48 | XMS_ITS | Encounter Summary ---
Author Organization [facility] Address [address] [place] [address] Care Team Providers Care Fashion Artist Name Role Phone Teddy Altman MD Primary Care Provider Unavail able Encounter Details Date Type Department Care Team (Latest Contact Info) Description 03/18/2003 Outpatient Historical [facility] [place] [address] [place] [address] Chung David MD NO ADDRESS ON FILE ERYTHEMATOUS COND NEC (Primary Dx) Social History Tobacco Use Types Packs/Day Years Used Date Smoking Tobacco: Never Assessed Comments Unknown Sex and Gender Information Value Date Recorded Sex Assigned at Not on file Legal Sex Female 3:25 AM REAL ESTATE REP Gender Identity Not on file Sexual Orientation Not on file documented as of this encounter Plan of Treatment Not on file documented as of this encounter Visit Diagnoses Diagnosis Other specified erythematous condition(695.89)- Primary Other specified erythematous condition documented in this encounter Care Teams Fashion Artist Relationship Specialty Start Date End Date Teddy Altman MD NO ADDRESS ON FILE PCP - General 05/03/03 documented as of this encounter
--- OUTSIDE RECORDS SUMMARY | 2025-05-12 20:48 | XMS_ITS | Encounter Summary ---
Author Organization [facility] Address [address] [place] [address] Care Team Providers Care Child Care Associate Name Role Phone Teddy Altman MD Primary Care Provider Unavail able Encounter Details Date Type Department Care Team (Latest Contact Info) Description 02/12/2003 Outpatient Historical [facility] Medicine [place] [address] [address] Teddy Altman MD NO ADDRESS ON FILE MORBID OBESITY (CMS/HCC) (Primary Dx) Social History Tobacco Use Types Packs/Day Years Used Date Smoking Tobacco: Never Assessed Comments Unknown Sex and Gender Information Value Date Recorded Sex Assigned at Not on file Legal Sex Female 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
--- OUTSIDE RECORDS SUMMARY | 2025-05-12 20:48 | XMS_ITS | Encounter Summary ---
Author Organization [facility] Address [address] [place] [address] Care Team Providers Care Duck Farmer Name Role Phone Teddy Altman MD Primary Care Provider Unavail able Encounter Details Date Type Department Care Team (Latest Contact Info) Description 05/27/2003 Outpatient Historical [facility] Medicine [place] [address] [address] Teddy Altman MD NO ADDRESS ON FILE ALOPECIA NOS (Primary Dx) Social History Tobacco Use Types Packs/Day Years Used Date Smoking Tobacco: Never Assessed Comments Unknown Sex and Gender Information Value Date Recorded Sex Assigned at Not on file Legal Sex Female 3:25 AM PSYCHIATRIC CNS Gender Identity Not on file Sexual Orientation Not on file documented as of this encounter Plan of Treatment Not on file documented as of this encounter Visit Diagnoses Diagnosis Alopecia, unspecified- Primary documented in this encounter Care Teams Duck Farmer Relationship Specialty Start Date End Date Teddy Altman MD NO ADDRESS ON FILE PCP - General 05/03/03 documented as of this encounter
--- OUTSIDE RECORDS SUMMARY | 2025-05-12 20:48 | XMS_ITS | Encounter Summary ---
Author Organization [facility] Address [address] [place] [address] Care Team Providers Care Physical Medicine Specialist Name Role Phone Teddy Altman MD Primary Care Provider Unavail able Encounter Details Date Type Department Care Team (Late st Contact Info) Description 05/06/2003 Outpatient Historical [facility] Family Medicine [place] [address] [phone] Social History Tobacco Use Types Packs/Day Years Used Date Smoking Tobacco: Never Assessed Comments Unknown Sex and Gender Information Value Date Recorded Sex Assigned at Not on file Legal Sex Female 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
--- OUTSIDE RECORDS SUMMARY | 2025-05-12 20:48 | XMS_ITS | Encounter Summary ---
Author Organization [facility] Address [address] [place] [address] Care Team Providers Care Associate Counsel Name Role Phone Teddy Altman MD Primary Care Provider Unavail able Encounter Details Date Type Department Care Team (Late st Contact Info) Description 04/21/2003 Outpatient Historical [facility] [place] [address] [phone] Social History Tobacco Use Types Packs/Day Years Used Date Smoking Tobacco: Never Assessed Comments Unknown Sex and Gender Information Value Date Recorded Sex Assigned at Not on file Legal Sex Female 3:25 AM EVIDENCE CUSTODIAN Gender Identity Not on file Sexual Orientation Not on file documented as of this encounter Plan of Treatment Not on file documented as of this encounter Visit Diagnoses Not on filedocumented in this encounter Care Teams Associate Counsel Relationship Specialty Start Date End Date Teddy Altman MD NO ADDRESS ON FILE PCP - General 05/03/03 documented as of this encounter
--- OUTSIDE RECORDS SUMMARY | 2025-05-12 20:48 | XMS_ITS | Encounter Summary ---
Author Organization [facility] Address [address] [place] [address] Care Team Providers Care Long Wall Mining Machine Helper Name Role Phone Teddy Altman MD Primary Care Provider Unavail able Encounter Details Date Type Department Care Team (Latest Contact Info) Description 05/03/2003 Outpatient Historical [facility] [place] [address] [place] [address] Rohit Price MD [address] [facility] [address] [place] [address] CHEST PAIN NOS (Primary Dx) Social History Tobacco Use Types Packs/Day Years Used Date Smoking Tobacco: Never Assessed Comments Unknown Sex and Gender Information Value Date Recorded Sex Assigned at Not on file Legal Sex Female 3:25 AM PERIANESTHESIA RN Gender Identity Not on file Sexual Orientation Not on file documented as of this encounter Plan of Treatment Not on file documented as of this encounter Visit Diagnoses Diagnosis Chest pain, unspecified- Primary documented in this encounter Care Teams Long Wall Mining Machine Helper Relationship Specialty Start Date End Date Teddy Altman MD NO ADDRESS ON FILE PCP - General 05/03/03 documented as of this encounter
--- OUTSIDE RECORDS SUMMARY | 2025-05-12 20:48 | XMS_ITS | Patient Health Record ---
Author Organization [employer] Address [address] [place] [address] Care Team Providers Care Web Content Editor Name Role Phone Vivek Sheets Primary Care Provider NATTY Li Unavailable [phone] Allergies Allergen (clinical drug ingredient) Drug/Non Drug Allergy documented on EMR Reaction Allergy Type Onset Date Status levofloxacin levoFLOXacin Unknown Drug Allergy A ctive Results Component Value Reference Range Notes Urinalysis, Routine Reviewed date:12/14/2024 03:12:31 PM Interpretation: Performing Lab: Notes/Report: Urine-Color antonina Appearance clear Glucose 2+ Bilirubin - Ketones - Specific Ramer 1.015 Occult Blood - pH 6.0 Urine Protein - Urobilinogen,Semi-Qn - Nitrite, Urine - WBC Esterase - Urinalysis, Routine Reviewed date:06/15/2024 10:47:38 AM Interpretation: Performing Lab: Notes/Report: Urine-Color pale yellow Appearance clear Glucose 3+ Bilirubin - Ketones - Specific Ramer 1.010 Occult Blood - pH 6.5 Urine Protein - Urobilinogen,Semi-Qn - Nitrite, Urine - WBC Esterase - Urinalysis, Routine Reviewed date:09/14/2024 04:13:08 PM Interpretation: Performing Lab: Notes/Report: Urine-Color yellow Appearance sighty cloudy Glucose 3+ Bilirubin - Ketones - Specific Ramer 1.015 Occult Blood 1+ pH 6.0 Urine Protein 1+ Urobilinogen,Semi-Qn - Nitrite, Urine - WBC Esterase - Reason For Referral No Information Medications Medication SIG (Take, Route, Frequency, Duration) Notes Start Date End Date Status glyBURIDE 5 MG 1 tablet Orally twic e a day Active Lisinopril 30 MG 1 tablet Orally Once a day Active Celecoxib 100 MG 1 capsule with food Orally twice a day Active metFORMIN HCl 500 MG 2 tablets Orally tw ice a day Active Rosuvastatin Calcium 40 MG 1 tablet Orally Once a day Active Lantus 100 UNIT/ML as directed Subcutaneous twice a day 20 units in am, 10 units pm Not-Taking Fenofibrate 160 MG 1 tablet Orally Once a day Active oxyBUTYnin Chloride ER 10 MG 1 tablet Orally Once a day Not-Taking Tolterodine Tartrate ER 4 MG 1 capsule Orally Once a day; Duration: 30 days 08/07/2024 08/02/2025 Active Tresiba 100 UNIT/ML as directed Subcutaneous Active Furosemide 20 MG 1 tablet Orally twic e a day Active Potassium Chloride ER 10 MEQ 1 tablet with food Orally Twice a day Active Social History Tobacco Use: Social History Observation Description Date Details (start date - stop date) Former Smoker NA - NA Tobacco Control (Standard) Question Answer Notes Tobacco use: Former smoker How long has it been since you last smoked? Grea ter than 10 years Problems Problem Type SNOMED Code ICD Code Onset Dates Problem Status W/U Status Risk Notes Problem Overactive bladder (160624007) Overactive bladder (N32.81) Active confirmed Problem Osteoarthritis (758841834) Osteoarthritis (M19.90) Active confirmed Problem Polycythemia (296277639) Polycythemia (D75.1) Active confirmed Problem Hypertension (27357252) Hypertension (I10) Active confirmed Problem Diabetes mellitus uncontrolled (368764204) Uncontrolled diabetes mellitus (E11.65) Active confirmed Problem Asthma (405670576) Asthma (J45.909) Active confirmed Vital Signs Heart Rate 86 /min 12/14/2024 Height-cm 149.86 cm 12/14/2024 Blood pressure diastolic 82 mm Hg 12/14/2024 Weight-kg 69.85 kg 12/14/2024 Height 59 in 12/14/2024 Blood pressure systolic 155 mm Hg 12/14/2024 Weight 154 lbs 12/14/2024 BMI 31.1 kg/m2 12/14/2024 Procedures Procedure Date Ordered Date Performed Result Body Sit e Bladder Scan 06/15/2024 06/15/2024 97 mL Bladder Scan 09/14/2024 09/14/2024 N/A Bladder Scan 12/14/2024 12/14/2024 9ml Encounters Encounter Location Date Provider Diagnosis [facility] Urology, [facility] [address] [place] [address] 06/15/2024 NATTY BIRD Increased urinary frequency R35.0 ; Recent urinary tract infection Z87.440 ; Urinary urgency R39.15 ; Glucosuria R81 ; Incomplete bladder emptying R33.9 ; Uncontrolled diabetes mellitus E11.65 and History of kidney stones Z87.442 [facility] Urology, [facility] [address] [place] [address] 09/14/2024 NATTY BIRD Adverse drug effect, initial encounter T50.905A ; Overactive bladder N32.81 ; Increased urinary frequency R35.0 ; Urinary urgency R39.15 and Incomplete bladder emptying R33.9 [facility] Urology, [facility] [address] [place] [address] 12/14/2024 NATTY BIRD Overactive bladder N32.81 ; Urinary urgency R39.15 ; Glucosuria R81 and History of UTI Z87.440 [facility], [facility] [address] [place] [address] 05/14/2024 NATTY BIRD [facility], [facility] [address] [place] [address] 06/29/2024 NATTY REANO [facility], [facility] [address] [place] [address] 07/31/2024 NATTY BIRD [facility], [facility] [address] [place] [address] 08/06/2024 NATTY BABSANO [facility], [facility] [address] [place] [address] 08/07/2024 NATTY REANO [facility], [facility] [address] [place] [address] 09/14/2024 NATTY BIRD Assessments Encounter Date Diagnosis (ICD Code) Assessment Notes Treatment Notes Treatment Clinical Notes Section Notes 09/14/2024 Overactive bladder (ICD-10 - N32.81) 09/14/2024 Adverse drug effect, initial encounter (ICD-10 - T50.905A) 12/14/2024 Overactive bladder (ICD-10 - N32.81) 12/14/2024 Urinary urgency (ICD-10 - R39.15) 06/15/2024 Recent urinary tract infection (ICD-10 - Z87.440) 06/15/2024 Increased urinary frequency (ICD-10 - R35.0) 06/15/2024 Urinary urgency (ICD-10 - R39.15) 12/14/2024 Glucosuria (ICD-10 - R81) 09/14/2024 Increased urinary frequency (ICD-10 - R35.0) 12/14/2024 History of UTI (ICD-10 - Z87.440) 09/14/2024 Urinary urgency (ICD-10 - R39.15) 06/15/2024 Glucosuria (ICD-10 - R81) 06/15/2024 Incomplete bladder emptying (ICD-10 - R33.9) 09/14/2024 Incomplete bladder emptying (ICD-10 - R33.9) 06/15/2024 Uncontrolled diabetes mellitus (ICD-10 - E11.65) 06/15/2024 History of kidney stones (ICD-10 - Z87.442) 06/15/2024 Other UA with glucosuria, otherwise normal. PVR 97ml. She had some improvement on Myrbetriq 25, but continues to have frequency and nocturia. I will increase to 50mg. Continue with good water intake, avoid irritants and I have stressed the importance of sugar control as persistent glucosuria can worsen frequency. RTC in 3 months with UA/PVR. All questions that were asked were answered. Patient satisfied with plan of care. 09/14/2024 Other UA stable today, PVR 58ml. Patient has tried and failed Oxybutynin, Vesicare and Toviaz with bothersome s/e of severe dry mouth and reteniton. I will resend Myrbetriq 50mg, which improved her OAB symptoms and submit PA for better coverage. RTC in 3 months with UA/PVR, or PRN sooner. All questions that were asked were answered. Patient satisifed with plan of care. 12/14/2024 Other UA clear, PVR 9ml. Continue Myrbetriq. RTC in 9 months with UA/PVR, or PRN sooner. All questions that were asked were answered. Patient satisfied with plan of care. Plan Of Treatment Next Appt Details Provider Name:NATTY BIRD, 1 11/14/2024 02:00:00 PM, [address] [place], [address], Insurance Providers Payer Name Payer Address Payer Phone Subscriber Number Group Number Insured Name Patient Relationship to Insured Coverage Start Date Coverage End Date [facility] Plan [address] [place], [place] [id number] Juan Estrada Self - patient is the insured Medical (General) History Medical History History ICD Code Arthritis Diabetes High Cholesterol Hypertension Back pain Burning with Urination Overactive Bladder Urinary Frequency Nocturia ( 6 - 8 times nightly) Surgical History Surgery Date(Month/Year) Bilateral Tubal Ligation Hospitalization History Reason Date(Month/Year) See prior sx hx
--- OUTSIDE RECORDS SUMMARY | 2025-05-12 20:48 | XMS_ITS | Encounter Summary ---
Author Organization [facility] Address [address] [place] [address] Care Team Providers Care Junior Legal Secretary Name Role Phone Teddy Altman MD Primary Care Provider Unavail able Encounter Details Date Type Department Care Team (Latest Contact Info) Description 03/10/2003 Outpatient Historical [facility] Medicine [place] [address] [address] Teddy Altman MD NO ADDRESS ON FILE DERMATITIS NOS (Primary Dx); CHEST PAIN NOS; MORBID OBESITY (CMS/HCC) Social History Tobacco Use Types Packs/Day Years Used Date Smoking Tobacco: Never Assessed Comments Unknown Sex and Gender Information Value Date Recorded Sex Assigned at Not on file Legal 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
--- OUTSIDE RECORDS SUMMARY | 2025-05-12 20:48 | XMS_ITS | Encounter Summary ---
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 (Primary Dx) Social History Tobacco Use Types Packs/Day Years Used Date Smoking Tobacco: Never Assessed Comments Unknown Sex and Gender Information Value Date Recorded Sex Assigned at Not on file 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
--- OUTSIDE RECORDS SUMMARY | 2025-05-12 20:48 | XMS_ITS | Encounter Summary ---
Author Organization [facility] Address [address] [place] [address] Care Team Providers Care Radio Interference Trouble Shooter Name Role Phone Teddy Altman MD Primary Care Provider Unavail able Encounter Details Date Type Department Care Team (Latest Contact Info) Description 08/04/2003 Outpatient Historical [facility] Medicine [place] [address] [address] Elvia Sutton, BASEBALL WINDER NO ADDRESS ON FILE HYPERLIPIDEMIA NEC/NOS (Primary Dx) Social History Tobacco Use Types Packs/Day Years Used Date Smoking Tobacco: Never Assessed Comments Unknown Sex and Gender Information Value Date Recorded Sex Assigned at Not on file 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
== END 2025-05-12 12:08 | disposition home or self-care (01) ==
PROVIDERS: Emergency Provider Emergency Medicine; PCP Nurse Practitioner
DX: S61.011A Laceration without foreign body of right thumb without damage to nail, initial encounter (principal); Z79.4 Long term (current) use of insulin; Z79.84 Long term (current) use of oral hypoglycemic drugs; Z87.891 Personal history of nicotine dependence; E11.9 Type 2 diabetes mellitus without complications; I10 Essential (primary) hypertension; W26.8XXA Contact with other sharp object(s), not elsewhere classified, initial encounter
CPT/HCPCS: 99282